=== PATIENT | female | born 1930 | race Caucasian/White ===

== ENCOUNTER → 2017-03-21 | Outpatient (CLI) | payer MEDICARE ==
[~2017-03-21] MED LIST: ACHD5005 PO; ACID1TAB5 PO; CALTRATE 600 +1 EACH PO; CLIN-62 PO; DOXY100C2 PO; ESTR0.3T PO; ESTR0.455; ESTR0.5T3 PO; FOLI1TAB7 PO; HYDR-3583 PO; INDA1.25 PO; INDA2.5T2 PO; IRB150T; KCL10CCR PO; LISI20TA2 PO; LSNP20T PO; MPR22T TP; OMEG1CAP26 PO; OMEG1CAP51 PO; POTA10CA43 PO; POTASSIUM; POTASSIUM PO; PRD5T PO; SMV10T PO; SMV20T PO; SULF1TAB38 PO
--- NOTE | 2017-03-21 19:32 | Diagnostic Imaging Report ---
INDICATION: Diabetes mellitus with chronic ulcer. TECHNIQUE: Three views of the right foot, 3:59 p.m. CORRELATION STUDY: 07/07/2012. FINDINGS: Hallux valgus primus varus alignment is present. There has been development of erosion absence of the first metatarsal head. There is also slight irregularity of the base of the proximal phalanx. Margins do appear to be fairly well corticated without definitive acute appearing erosive type change. The previously noted bipartite medial sesamoid bone is not demonstrated on followup. Apparent amputation of the distal phalanges of the second toe again demonstrated. Slight irregularity at the base of the proximal phalanx of the second toe could be reflective of a nondisplaced fracture or early erosion with slight lucency suggested. There is a transverse slightly comminuted fracture involving the distal aspect of the proximal phalanx of the little toe with fracture line extending into the interphalangeal joint. There is soft tissue swelling, particularly along the plantar aspect. Pes planus alignment. Triangular shaped density adjacent to the navicular bone is likely accessory ossicle, unchanged. IMPRESSION: 1. Soft tissue swelling of the foot. 2. Acute appearing fracture about the distal aspect of the proximal phalanx of the little toe. 3. 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 4. Question of a nondisplaced fracture versus early erosion at the base of the proximal phalanx of second digit. Dictated by: Dictated on workstation # [id number]
== END ==
LOC: RAD 15:34
PROVIDERS: ATTEND Nurse Practitioner
DX: E11.621 Type 2 diabetes mellitus with foot ulcer (principal); L97.512 Non-pressure chronic ulcer of other part of right foot with fat layer exposed
CPT/HCPCS: 73630

== ENCOUNTER → 2017-04-03 | Outpatient (CLI) | payer MEDICARE ==
[2017-04-03 16:41] LABS: CREATININE SERUM 1.29 MG/DL (0.60-1.30); POTASSIUM 3.6 MMOL/L (3.6-5.0)
[2017-04-03 16:42] LABS: CALCIUM 9.4 MG/DL (8.5-10.1)
== END ==
LOC: LAB 16:06
PROVIDERS: ATTEND Surgery
DX: E11.621 Type 2 diabetes mellitus with foot ulcer (principal); E11.42 Type 2 diabetes mellitus with diabetic polyneuropathy; L97.512 Non-pressure chronic ulcer of other part of right foot with fat layer exposed; L97.522 Non-pressure chronic ulcer of other part of left foot with fat layer exposed; L97.511 Non-pressure chronic ulcer of other part of right foot limited to breakdown of skin
CPT/HCPCS: 36415; 80048

== ENCOUNTER 2017-05-01 12:50 | Outpatient (RCR) | payer MEDICARE | END 2017-05-06 16:00 | disposition home or self-care (01) | LOC: WOUNDCARE 12:50 | PROVIDERS: ATTEND Nurse Practitioner | DX: E11.621 Type 2 diabetes mellitus with foot ulcer (principal); L97.512 Non-pressure chronic ulcer of other part of right foot with fat layer exposed | CPT/HCPCS: 11042; 11044; 87070; 87075; 87077; 87186; 87205 ==

== ENCOUNTER 2017-05-09 15:00 | Outpatient (CLI) | payer MEDICARE ==
[~2017-05-09] VITALS: Ht 162.6 cm; Wt 68.3 kg
[~2017-05-09 15:00] MED LIST changes: -CA C1TAB75 PO; -CEFEPIME HCL 2 GM (MAXIPIME) VIAL ONE; -NS (IVPB) 50 ML ONE
[2017-05-10] MEDS ORDERED: CA C1TAB75 PO (09:01)
== END 2017-05-10 08:55 ==
LOC: PREOP 15:00
PROVIDERS: ATTEND Podiatrist
DX: Z01.818 Encounter for other preprocedural examination (principal); M86.9 Osteomyelitis, unspecified; M21.6X1 Other acquired deformities of right foot

== ENCOUNTER → 2017-05-09 | Outpatient (CLI) | payer MEDICARE ==
[~2017-05-09] MED LIST changes: +CA C1TAB75 PO; +CEFEPIME HCL 2 GM (MAXIPIME) VIAL ONE; +NS (IVPB) 50 ML ONE
== END ==
LOC: WOUNDCARE 14:48
PROVIDERS: ATTEND Nurse Practitioner
DX: E11.621 Type 2 diabetes mellitus with foot ulcer (principal); E11.42 Type 2 diabetes mellitus with diabetic polyneuropathy; L97.514 Non-pressure chronic ulcer of other part of right foot with necrosis of bone; M86.471 Chronic osteomyelitis with draining sinus, right ankle and foot
CPT/HCPCS: 11042

== ENCOUNTER 2017-05-15 10:53 | Day surgery (SDC) | payer MEDICARE ==
[~2017-05-15] VITALS: Ht 162.6 cm; Wt 68.3 kg
[~2017-05-15 10:53] MED LIST changes: +CA C1TAB75 PO
--- OUTSIDE RECORDS SUMMARY | 2017-05-15 11:01 | XMS REPORT ---
Author Author JACQUES REGAN Organization [employer] Address Unknown Phone Unavailable Care Team Providers Care Tool/Die Maker Name Role Phone JACQUES REGAN CP Unavailable Allergies, Adverse Reactions, Alerts Substance Reaction Event Type N.K.D.A. Info Not Available Non Drug Allergy Problems Problem Type Condition Code Onset Dates Condition Status Assessment Cough R05 Active Medications Medication Code System Code Instructions Start Date End Date Status Dosage Azithromycin [facility] [address]-01 250 MG Orally Once a day Sep 03, 2016 Sep 08, 2016 2 tablets on the first day, then 1 tablet daily for 4 days Tessalon Perles [facility] [address]-50 100 MG Orally Three times a day for cough Sep 03, 2016 1 capsule as needed Indapamide [facility] [address]-02 2.5 MG Orally Once a day 1 tablet in the morning Potassium [facility] [address]-97 75 MG Orally Once a day 1 tablet Procedures Procedure Coding System Code Date Office Visit, New Pt., Level 3 CPT-4 45770 Sep 03, 2016 Vital Signs Date/Time: Sep 03, 2016 Blood Pressure Systolic 128 mmHg Cardiac Monitoring Heart Rate 76 bpm Weight 159.4 lbs Blood Pressure Diastolic 74 mmHg Results No Known Results Summary Purpose [employer] Submission
[2017-05-15] MEDS ORDERED: ceFAZolin 2 GM/NS 50 ML IV ONE (11:15)
[2017-05-15] MEDS ORDERED: BUPIVACAINE 0.5% 30 ML (SENSORCAINE) VIAL ONE (11:40)
[2017-05-15] MEDS ORDERED: fentaNYL INJECTION 100 MCG/2 ML AMP ONE (11:42)
[2017-05-15] MEDS ORDERED: PROPOFOL INJECTION 50 ML IV ONE (11:43)
[2017-05-15 11:53] VITALS: BP 154/65
[2017-05-15] MEDS ORDERED: GLYCOPYRROLATE 0.2 MG/ML (ROBINUL) 2 ML VIAL ONE (12:11)
[2017-05-15 13:15] VITALS: BP 142/66
[2017-05-15 13:45] VITALS: BP 134/106
[2017-05-15] MEDS ORDERED: LACTATED RINGERS 1,000 ML IV PRN (14:53)
--- NOTE | 2017-06-12 16:05 | OPERATIVE REPORT ---
DATE OF SERVICE: 05/15/2017 Please note that there was no surgery performed on this day. The patient was transferred from the preoperative holding into the OR. IV sedation was administered and the patient then had changes in her heart rhythm that were unstable. The surgery was aborted at that time. The patient was awakened and transferred back to her recovery room. She was comfortable. She will be referred to a date pitter prior to any further surgical intervention. Job ID: [id number] DocumentID: [id number] Dictated Date: 06/12/2017 15:32:30 Supply Chain Assistant Date: 06/12/2017 16:05:26 Dictated By: LI DAS DPM
== END 2017-05-15 14:04 | disposition home or self-care (01) ==
LOC: SDC 10:53
PROVIDERS: ATTEND Podiatrist
DX: E11.621 Type 2 diabetes mellitus with foot ulcer (principal); L97.529 Non-pressure chronic ulcer of other part of left foot with unspecified severity; I10 Essential (primary) hypertension; E11.40 Type 2 diabetes mellitus with diabetic neuropathy, unspecified; E78.00 Pure hypercholesterolemia, unspecified; Z79.899 Other long term (current) drug therapy; Z53.09 Procedure and treatment not carried out because of other contraindication
CPT/HCPCS: 82962; 87081; 93005

== ENCOUNTER → 2017-05-16 | Outpatient (CLI) | payer MEDICARE ==
[~2017-05-16] MED LIST changes: +CLIN300C11 PO; +POTA10TA10 PO; +POTA10TA36 PO
== END ==
LOC: WOUNDCARE 13:56
PROVIDERS: ATTEND Surgery
DX: E11.621 Type 2 diabetes mellitus with foot ulcer (principal); L97.514 Non-pressure chronic ulcer of other part of right foot with necrosis of bone; M86.471 Chronic osteomyelitis with draining sinus, right ankle and foot; E11.42 Type 2 diabetes mellitus with diabetic polyneuropathy
CPT/HCPCS: 11042

== ENCOUNTER → 2017-05-17 | Outpatient (CLI) | payer MEDICARE ==
[~2017-05-17] MED LIST changes: -CLIN300C11 PO; -POTA10TA10 PO; -POTA10TA36 PO
== END ==
LOC: SDC 13:59
PROVIDERS: ATTEND Nurse Practitioner
DX: E11.621 Type 2 diabetes mellitus with foot ulcer (principal); L97.514 Non-pressure chronic ulcer of other part of right foot with necrosis of bone; M86.471 Chronic osteomyelitis with draining sinus, right ankle and foot; E11.42 Type 2 diabetes mellitus with diabetic polyneuropathy
CPT/HCPCS: 36415; 84134

== ENCOUNTER → 2017-05-23 | Outpatient (CLI) | payer MEDICARE | LOC: WOUNDCARE 13:39 | PROVIDERS: ATTEND Nurse Practitioner | DX: E11.621 Type 2 diabetes mellitus with foot ulcer (principal); L97.514 Non-pressure chronic ulcer of other part of right foot with necrosis of bone; M86.471 Chronic osteomyelitis with draining sinus, right ankle and foot; E11.42 Type 2 diabetes mellitus with diabetic polyneuropathy | CPT/HCPCS: 11042 ==

== ENCOUNTER → 2017-05-30 | Outpatient (CLI) | payer MEDICARE ==
[~2017-05-30] VITALS: Ht 162.6 cm; Wt 68.5 kg
[~2017-05-30] MED LIST changes: +REGADENOSON 0.4 MG/5 ML SYR (LEXISCAN) IV ONE
[2017-05-30] MEDS: CATHETER FLUSH 10 ML SYR IV PRN (08:40)
[2017-05-30 09:52] VITALS: BP 131/61
[2017-05-30 09:56] VITALS: BP 152/81
--- NOTE | 2017-05-31 12:20 | STRESS TEST ---
DATE OF SERVICE: 05/30/2017 ORDERING PHYSICIAN: Dr. Lemons. PRIMARY PHYSICIAN: Dr. Guerra. CLINICAL DIAGNOSIS: Abnormal electrocardiogram, bradycardia, diabetes, hypertension, hyperlipidemia. Baseline images were carried out after injection of 9.3 mCi of Technetium-99m Tetrofosmin. This was followed by 0.4 mg regadenoson and 27.6 mCi of Technetium-99m Tetrofosmin for stress imaging. The electrocardiogram showed sinus rhythm at baseline and there was nonspecific ST and T-wave abnormality. The patient tolerated the procedure well and did not report any significant symptoms. Review of images at rest and following stress does not indicate any significant perfusion defects consistent with myocardial ischemia or infarction. Gated images show normal global left ventricular systolic function with normal regional wall motion. Left ventricular ejection fraction is calculated to be 80%. Left ventricular end diastolic volume is 31 mL. TID is absent (0.98). CONCLUSIONS: 1. No evidence of any significant myocardial ischemia or infarction on this study. 2. Normal regional wall motion. 3. Normal global left ventricular systolic function with a calculated ejection fraction of 80%. Job ID: [id number] DocumentID: [id number] Dictated Date: 05/31/2017 09:34:34 Exhaust Emissions Inspector Date: 05/31/2017 09:51:36 Dictated By: JARETT LEMONS MD, MA, FACP, FACC,
== END ==
LOC: CARD 08:18
PROVIDERS: ATTEND Internal Medicine Cardiovascular Disease
DX: E11.9 Type 2 diabetes mellitus without complications (principal); I10 Essential (primary) hypertension; E78.4 Other hyperlipidemia; R94.31 Abnormal electrocardiogram [ECG] [EKG]; R00.1 Bradycardia, unspecified
CPT/HCPCS: 78452; 93017

== ENCOUNTER → 2017-05-30 | Outpatient (CLI) | payer MEDICARE ==
[~2017-05-30] MED LIST changes: -REGADENOSON 0.4 MG/5 ML SYR (LEXISCAN) IV ONE
== END ==
LOC: WOUNDCARE 14:22
PROVIDERS: ATTEND Nurse Practitioner
DX: L97.514 Non-pressure chronic ulcer of other part of right foot with necrosis of bone (principal); E11.621 Type 2 diabetes mellitus with foot ulcer; E11.42 Type 2 diabetes mellitus with diabetic polyneuropathy; M86.471 Chronic osteomyelitis with draining sinus, right ankle and foot
CPT/HCPCS: 11042

== ENCOUNTER 2017-06-04 14:30 | Outpatient (RCR) | payer MEDICARE ==
[2017-05-03] MEDS: CEFEPIME 2 GM/NS 50 ML IVPB IV SCH ×2 (14:47)
[2017-05-03 16:33] VITALS: BP 186/71
[2017-05-04] MEDS: CEFEPIME 2 GM/NS 50 ML IVPB IV SCH ×2 (08:40)
[2017-05-04] MEDS: CATHETER FLUSH 10 ML SYR IV PRN (08:40)
[2017-05-04 08:45] VITALS: BP 138/73
[2017-05-05 14:04] VITALS: BP 155/78
[2017-05-05] MEDS: CEFEPIME 2 GM/NS 50 ML IVPB IV SCH ×2 (14:04)
[2017-05-05] MEDS: CATHETER FLUSH 10 ML SYR IV PRN (14:04)
[2017-05-06] MEDS: CEFEPIME 2 GM/NS 50 ML IVPB IV SCH ×2 (14:34)
[2017-05-06] MEDS: CATHETER FLUSH 10 ML SYR IV PRN ×2 (14:34→15:06)
[2017-05-06 14:35] VITALS: BP 175/78
[2017-05-07] MEDS: CATHETER FLUSH 10 ML SYR IV PRN ×2 (13:48→14:20)
[2017-05-07] MEDS: CEFEPIME 2 GM/NS 50 ML IVPB IV SCH ×2 (13:48)
[2017-05-07 13:51] VITALS: BP 150/66
[2017-05-08] MEDS: CATHETER FLUSH 10 ML SYR IV PRN ×2 (13:46→14:16)
[2017-05-08] MEDS: CEFEPIME 2 GM/NS 50 ML IVPB IV SCH ×2 (13:47)
[2017-05-08 14:15] VITALS: BP 147/59
[2017-05-09] MEDS: CATHETER FLUSH 10 ML SYR IV PRN ×2 (13:55→14:25)
[2017-05-09] MEDS: CEFEPIME 2 GM/NS 50 ML IVPB IV SCH ×2 (13:55)
[2017-05-09 14:02] VITALS: BP 107/86
[2017-05-10] MEDS: CATHETER FLUSH 10 ML SYR IV PRN ×2 (13:50→14:20)
[2017-05-10] MEDS: CEFEPIME 2 GM/NS 50 ML IVPB IV SCH ×2 (13:50)
[2017-05-10 14:20] VITALS: BP 141/64
[2017-05-10 14:24] LABS: ANION GAP 14 MMOL/L (5-14); BLOOD UREA NITROGEN 15 MG/DL (7-18); BUN/CREATININE RATIO 19; CALCIUM 8.8 MG/DL (8.5-10.1); CARBON DIOXIDE 25 MMOL/L (21-32); CHLORIDE 102 MMOL/L (98-107); GFR ESTIMATED > 60; GLUCOSE 135 MG/DL (70-105); SODIUM 141 MMOL/L (135-145)
[2017-05-11] MEDS: CATHETER FLUSH 10 ML SYR IV PRN ×2 (10:04→10:31)
[2017-05-11] MEDS: CEFEPIME 2 GM/NS 50 ML IVPB IV SCH ×2 (10:05)
[2017-05-11 10:45] VITALS: BP 125/63
[2017-05-12] MEDS: CATHETER FLUSH 10 ML SYR IV PRN ×2 (09:39→10:06)
[2017-05-12] MEDS: CEFEPIME 2 GM/NS 50 ML IVPB IV SCH ×2 (09:40)
[2017-05-12 10:10] VITALS: BP 120/56
[2017-05-13 13:40] VITALS: BP 148/65
[2017-05-13] MEDS: CATHETER FLUSH 10 ML SYR IV PRN ×2 (13:41→14:13)
[2017-05-13] MEDS: CEFEPIME 2 GM/NS 50 ML IVPB IV SCH ×2 (13:41)
[2017-05-14 13:40] VITALS: BP 140/61
[2017-05-14] MEDS: CEFEPIME 2 GM/NS 50 ML IVPB IV SCH ×2 (13:43)
[2017-05-14] MEDS: CATHETER FLUSH 10 ML SYR IV PRN ×2 (13:43→14:15)
[2017-05-16] MEDS: CATHETER FLUSH 10 ML SYR IV PRN (13:17)
[2017-05-16] MEDS: CEFEPIME 2 GM/NS 50 ML IVPB IV SCH ×2 (13:18)
[2017-05-16 13:55] VITALS: BP 142/66
[2017-05-17] MEDS: CEFEPIME 2 GM/NS 50 ML IVPB IV SCH ×2 (14:19)
[2017-05-17 14:52] VITALS: BP 148/72
[2017-05-18 13:35] VITALS: BP 141/79
[2017-05-18] MEDS: CEFEPIME 2 GM/NS 50 ML IVPB IV SCH ×2 (13:42)
[2017-05-18] MEDS: CATHETER FLUSH 10 ML SYR IV PRN (13:42)
[2017-05-19 13:05] VITALS: BP 150/78
[2017-05-19] MEDS: CEFEPIME 2 GM/NS 50 ML IVPB IV SCH ×2 (13:14)
[2017-05-20] MEDS: CATHETER FLUSH 10 ML SYR IV PRN ×2 (13:15→13:46)
[2017-05-20] MEDS: CEFEPIME 2 GM/NS 50 ML IVPB IV SCH ×2 (13:16)
[2017-05-20 13:50] VITALS: BP 171/68
[2017-05-21] MEDS: CATHETER FLUSH 10 ML SYR IV PRN (13:51)
[2017-05-21] MEDS: CEFEPIME 2 GM/NS 50 ML IVPB IV SCH ×2 (13:52)
[2017-05-21 14:30] VITALS: BP 141/55
[2017-05-22] MEDS: CATHETER FLUSH 10 ML SYR IV PRN ×2 (13:14→13:42)
[2017-05-22] MEDS: CEFEPIME 2 GM/NS 50 ML IVPB IV SCH ×2 (13:14)
[2017-05-22 13:50] VITALS: BP 143/58
[2017-05-23] MEDS: CEFEPIME 2 GM/NS 50 ML IVPB IV SCH ×2 (12:55)
[2017-05-23] MEDS: CATHETER FLUSH 10 ML SYR IV PRN (12:55)
[2017-05-23 12:57] VITALS: BP 143/58
[2017-05-23 14:27] VITALS: BP 143/58
[2017-05-24] MEDS: CATHETER FLUSH 10 ML SYR IV PRN (13:14)
[2017-05-24] MEDS: CEFEPIME 2 GM/NS 50 ML IVPB IV SCH ×2 (13:14)
[2017-05-24 13:17] VITALS: BP 135/76
[2017-05-24 13:53] VITALS: BP 135/76
[2017-05-25 13:24] VITALS: BP 145/67
[2017-05-25] MEDS: CEFEPIME 2 GM/NS 50 ML IVPB IV SCH ×2 (13:29)
[2017-05-25] MEDS: CATHETER FLUSH 10 ML SYR IV PRN (13:29)
[2017-05-26 13:10] VITALS: BP 137/79
[2017-05-26] MEDS: CEFEPIME 2 GM/NS 50 ML IVPB IV SCH ×2 (13:20)
[2017-05-27 14:14] VITALS: BP 179/71
[2017-05-27] MEDS: CEFEPIME 2 GM/NS 50 ML IVPB IV SCH ×2 (14:14)
[2017-05-27] MEDS: CATHETER FLUSH 10 ML SYR IV PRN ×2 (14:14→14:45)
[2017-05-28] MEDS: CEFEPIME 2 GM/NS 50 ML IVPB IV SCH ×2 (13:30)
[2017-05-28] MEDS: CATHETER FLUSH 10 ML SYR IV PRN (14:05)
[2017-05-28 14:06] VITALS: BP 139/59
[2017-05-29 14:13] VITALS: BP 149/65
[2017-05-29] MEDS: CEFEPIME 2 GM/NS 50 ML IVPB IV SCH ×2 (14:13)
[2017-05-30] MEDS: CATHETER FLUSH 10 ML SYR IV PRN ×2 (13:39→14:10)
[2017-05-30 14:10] VITALS: BP 156/61
[2017-05-31] MEDS: CEFEPIME 2 GM/NS 50 ML IVPB IV SCH ×2 (14:17)
[2017-05-31] MEDS: CATHETER FLUSH 10 ML SYR IV PRN (15:10)
[2017-05-31 15:39] VITALS: BP 136/78
[~2017-06-04] VITALS: Ht 152.4 cm; Wt 76.9 kg
[~2017-06-04 14:30] MED LIST changes: +CEFEPIME HCL 2 GM (MAXIPIME) VIAL ONE; +NS (IVPB) 50 ML ONE
[2017-06-04 15:02] VITALS: BP 136/78
[2017-06-13] MEDS ORDERED: POTA10TA10 PO (19:15)
[2017-06-13] MEDS ORDERED: POTA10TA36 PO (19:15)
[2017-06-13] MEDS ORDERED: CLIN300C11 PO (19:15)
== END 2017-07-06 | disposition home or self-care (01) ==
LOC: SDC 14:30
PROVIDERS: ATTEND Surgery
DX: L97.514 Non-pressure chronic ulcer of other part of right foot with necrosis of bone (principal); M86.471 Chronic osteomyelitis with draining sinus, right ankle and foot; E11.621 Type 2 diabetes mellitus with foot ulcer; E11.42 Type 2 diabetes mellitus with diabetic polyneuropathy; B96.5 Pseudomonas (aeruginosa) (mallei) (pseudomallei) as the cause of diseases classified elsewhere
CPT/HCPCS: 36415; 36569; 76937; 80048; 96365; 99211

== ENCOUNTER → 2017-06-05 | Outpatient (CLI) | payer MEDICARE ==
[~2017-06-05] MED LIST changes: -CEFEPIME HCL 2 GM (MAXIPIME) VIAL ONE; +CLIN300C11 PO; -NS (IVPB) 50 ML ONE; +POTA10TA10 PO; +POTA10TA36 PO
== END ==
LOC: CARD 14:42
PROVIDERS: ATTEND Internal Medicine Cardiovascular Disease
DX: R94.31 Abnormal electrocardiogram [ECG] [EKG] (principal); R00.1 Bradycardia, unspecified; E11.9 Type 2 diabetes mellitus without complications; I10 Essential (primary) hypertension; E78.4 Other hyperlipidemia
CPT/HCPCS: 93306

== ENCOUNTER → 2017-06-06 | Outpatient (CLI) | payer MEDICARE ==
[~2017-06-06] MED LIST changes: -CLIN300C11 PO; -POTA10TA10 PO; -POTA10TA36 PO
== END ==
LOC: WOUNDCARE 14:21
PROVIDERS: ATTEND Nurse Practitioner
DX: E11.621 Type 2 diabetes mellitus with foot ulcer (principal); L97.514 Non-pressure chronic ulcer of other part of right foot with necrosis of bone; E11.42 Type 2 diabetes mellitus with diabetic polyneuropathy; M86.471 Chronic osteomyelitis with draining sinus, right ankle and foot
CPT/HCPCS: 11042

== ENCOUNTER 2017-06-13 15:20 | Emergency (ER) | payer MEDICARE ==
[~2017-06-13] VITALS: Ht 162.6 cm; Wt 68.0 kg
[~2017-06-13 15:20] MED LIST changes: -CLIN300C11 PO; -POTA10TA10 PO; -POTA10TA36 PO
[2017-06-13] MEDS ORDERED: NS IV 500 ML 500 ML IV ONE (15:39)
--- NOTE | 2017-06-13 15:45 | ED Lower Extremity ---
General Chief Complaint: Lower Extremity Stated Complaint: INFECTION IN FOOT Source: patient, family (son in law taz alvares), RN/MD ([facility] Gavino Alvarado) Exam Limitations: no limitations History of Present Illness Time seen by provider: 15:38 Initial Comments Patient presents to ER by private conveyance from the wound care center where she was seen by the PA today Gavino Alvarado. Most of history given by the son-in- law who accompanies her that she started having a lot of swelling over last weekend Saturday but since the clinics were all closed for the holiday Saturday tried getting in Saturday and were unable to be seen by either the primary care physician or wound care center early so there he had a scheduled appointment today so they kept that appointment. Patient is having quite a bit of swelling and pain in her right foot where she is been treated for osteomyelitis. Her doctor, ship's surveyor, Dr. Antonette Carvalho had attempted to do a resection of the second metatarsal however the patient had a problem with her heart while on the table so they abandoned and placed PICC line and started doing antibiotics. Last dose of antibiotic was May 31 proximal 2 weeks ago. The son-in-law states the patient was running around chasing her grandson Saturday and that's what he attributes why her swelling and pain in her foot is worse. When she was seen in the wound care clinic according the PA her temperature was about 100 and his plan was given how bad the wound was he couldn't probe down to the bone to admit her and have the ship's surveyor see if they can do something about an inpatient. He also wanted to start antibiotics on her. He says he called Dr. Guerra the primary care physician and notified her. The original plan was to resect the second metatarsal in one week from today. Patient denies any nausea, vomiting, fever, chills, rash. She was recently diagnosed with diabetes and is attempting lifestyle modification and diet control only. She is not on any pills or insulin for her diabetes. After discussing the potassium being low the patient admits that she's been off her potassium for the past 10 days since she ran out of the med. Allergies and Home Medications Allergies Coded Allergies: No Known Drug Allergies (Unverified , 05/09/17) Home Medications Ca Carbonate/Vitamin D3/Vit K 1 Each Tab.chew, 1 EACH PO BID, (Reported) Folic Acid/Multivits-Min/Lut 1 Each Tab.chew, 1 TAB PO HS, (Reported) Indapamide 2.5 Mg Tablet, 2.5 MG PO BID, (Reported) Potassium Chloride 10 Meq Capsule.sa, 20 MEQ PO DAILY, (Reported) TAKES 2 (10MEQ) CAPSULES EVERY MORNING AND TAKES 1 (10MEQ) CAPSULE AT BEDTIME Constitutional: No chills, No diaphoresis, fever (per Wound care), No malaise EENTM: No ear pain, No eye pain Respiratory: No cough, No short of breath Cardiovascular: No chest pain, No edema Gastrointestinal: No abdominal pain, No constipation, No diarrhea, No nausea, No vomiting Genitourinary: No discharge, No dysuria : No Musculoskeletal: see HPI, No joint pain, No joint swelling Skin: No pruritus, No rash Psychiatric/Neurological: Denies Headache, Denies Numbness, Denies Paresthesia Past Emzztxw-Ycsfer-Kkikuh Hx Patient Social History Alcohol Use: Denies Use Recreational Drug Use: No Smoking Status: Never a Smoker 2nd Hand Smoke Exposure: No Recent Foreign Travel: No Contact w/Someone Who Travel: No Recent Hopitalizations: No Immunizations Up To Date Tetanus Booster (TDap): Unknown Date of Pneumonia Vaccine: Aug 07, 2012 Date of Influenza Vaccine: Jul 16, 2016 Seasonal Allergies Seasonal Allergies: Yes Surgeries Surgeries: Hysterectomy, Tonsillectomy Cardiovascular Cardiac Disorders: Heart Murmur, Hypertension Reproductive System Hx Reproductive Disorders: No Sexually Transmitted Disease: No HIV/AIDS: No Female Reproductive Disorders: Denies 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 HAND History: Hysterectomy Musculoskeletal Musculoskeletal Disorders: Arthritis Endocrine Endocrine Disorders: Diabetes, Non-Insulin dep HEENT Loss of Vision: Bilateral Hearing Impairment: Denies Blood Transfusions Adverse Reaction to a Blood Tr: No (N/A) Family Medical History Significant Family History: Hypertension Physical Exam Vital Signs Vital Sign - Last 12Hours 06/13/17 16:15 Temp 97.4 Pulse 71 Resp 20 B/P (MAP) 144/56 Pulse Ox 96 Capillary Refill : General Appearance: WD/WN, no apparent distress HEENT: PERRL/EOMI, pharynx normal Neck: non-tender, normal inspection Cardiovascular: normal peripheral pulses, regular rate, rhythm Respiratory: chest non-tender, lungs clear, normal breath sounds Gastrointestinal: normal bowel sounds, non tender, soft Back: normal inspection, no vertebral tenderness Hips: bilateral hip non-tender, bilateral hip normal inspection, bilateral hip normal range of motion, bilateral hip no evidence of injury Ankles: right ankle swelling (, warm mildly tender) Feet: right foot other (under a dressing was serosanguineous drainage there is a ragged pressure ulcer that is deep without significant drainage or purulence noted. Consistent with wound and osteomyelitis given on history.) Neurologic/Tendon: normal sensation, normal motor functions, normal tendon functions, responds to pain Neurologic/Psychiatric: alert, normal mood/affect, oriented x 3 Lymphatic: no adenopathy Progress/Results/Core Measures Results/Orders Lab Results Laboratory Tests Test 06/13/17 15:35 Range/Units White Blood Count 11.3 H 4.3-11.0 10^3/uL Red Blood Count 3.66 L 4.35-5.85 10^6/uL Hemoglobin 11.1 L 11.5-16.0 G/DL Hematocrit 34 L 35-52 % Mean Corpuscular Volume 94 80-99 FL Mean Corpuscular Hemoglobin 30 25-34 PG Mean Corpuscular Hemoglobin Concent 32 32-36 G/DL Red Cell Distribution Width 14.4 10.0-14.5 % Platelet Count 449 H 130-400 10^3/uL Mean Platelet Volume 11.4 H 7.4-10.4 FL Neutrophils (%) (Auto) 68 42-75 % Lymphocytes (%) (Auto) 21 12-44 % Monocytes (%) (Auto) 10 0-12 % Eosinophils (%) (Auto) 1 0-10 % Basophils (%) (Auto) 0 0-10 % Neutrophils # (Auto) 7.7 1.8-7.8 X 10^3 Lymphocytes # (Auto) 2.4 1.0-4.0 X 10^3 Monocytes # (Auto) 1.2 H 0.0-1.0 X 10^3 Eosinophils # (Auto) 0.1 0.0-0.3 10^3/uL Basophils # (Auto) 0.0 0.0-0.1 10^3/uL Prothrombin Time 13.4 12.2-14.7 SEC INR Comment 1.0 0.8-1.4 Activated Partial Thromboplast Time 28 24-35 SEC Sodium Level 140 135-145 MMOL/L Potassium Level 2.7 L 3.6-5.0 MMOL/L Chloride Level 97 L 98-107 MMOL/L Carbon Dioxide Level 32 21-32 MMOL/L Anion Gap 11 5-14 MMOL/L Blood Urea Nitrogen 18 7-18 MG/DL Creatinine 0.85 0.60-1.30 MG/DL Estimat Glomerular Filtration Rate > 60 BUN/Creatinine Ratio 21 Glucose Level 104 70-105 MG/DL Lactic Acid Level 1.27 0.50-2.00 MMOL/L Calcium Level 8.9 8.5-10.1 MG/DL Total Bilirubin 0.6 0.1-1.0 MG/DL Aspartate Amino Transf (AST/SGOT) 26 5-34 U/L Alanine Aminotransferase (ALT/SGPT) 25 0-55 U/L Alkaline Phosphatase 79 40-136 U/L Total Protein 7.1 6.4-8.2 GM/DL Albumin 3.5 3.2-4.5 GM/DL My Orders Orders - SEPIDEH WEBB Cbc With Automated Diff (06/13/17 15:39) Comprehensive Metabolic Panel (06/13/17 15:39) Lactic Acid Analyzer (06/13/17 15:39) Blood Culture (06/13/17 15:39) Sputum Culture (06/13/17 15:39) Ua Culture If Indicated (06/13/17 15:39) Protime With Inr (06/13/17 15:39) Partial Thromboplastin Time (06/13/17 15:39) Chest 1 View, Ap/Pa Only (06/13/17 15:39) O2 (06/13/17 15:39) Saline Lock/Iv-Start (06/13/17 15:39) Saline Lock/Iv-Start (06/13/17 15:39) Vital Signs Adult Sepsis Patie Q1HR (06/13/17 15:39) Remove Rings In Anticipation O (06/13/17 15:39) Saline Lock/Iv-Start (06/13/17 15:39) Ns Iv 500 Ml (Sodium Chloride 0.9%) (06/13/17 15:39) Ns W/Kcl 40 Meq/L (Ns Iv W/Kcl 40 Meq/L) (06/13/17 16:45) Ekg Tracing (06/13/17 16:41) Continuous Ekg Monitoring (06/13/17 16:41) Medications Given in ED Current Medications Medications Dose Ordered Sig/Jean Carlos Route Start Time Stop Time Status Last Admin Dose Admin Potassium Chloride/Sodium Chloride 1,000 ml @ 125 mls/hr Q8H ONCE IV 06/13/17 16:45 06/14/17 00:44 06/13/17 17:54 125 MLS/HR Sodium Chloride 500 ml @ 0 mls/hr Q0M ONCE IV 06/13/17 15:39 06/13/17 15:41 DC 06/13/17 16:09 999 MLS/HR Vital Signs/I&O Vital Sign - Last 12Hours 06/13/17 16:15 Temp 97.4 Pulse 71 Resp 20 B/P (MAP) 144/56 Pulse Ox 96 Intake and Output 06/14/17 00:00 Intake Total 500 ml Balance 500 ml Progress Note : Time: 18:47 Progress Note Echocardiogram from last week reviewed and showed grade 1 diastolic dysfunction with mild aortic regurgitation and mild mitral regurgitation and an EF of 65-70% . The nuclear stress scan from the same time shows no evidence of ischemia and 80% ejection fraction. Since her hypokalemia is asymptomatic we will get her repleted orally and sent a prescription to her pharmacy. Diagnostic Imaging Diagonstic Imaging: Xray Plain Films/CT/US/NM/MRI: chest Comments No acute cardiopulmonary processes noted. Pending radiology over read. Reviewed: Reviewed by Me Consults Consults : Consulting Physician: LI DAS DPM Consults Notes We discussed the case and the patient having hypokalemia but no evidence of real sepsis other than a low white count of 11 something thousand surgeons plan was for the patient to get a cardiac workup and cardiac clearance for setting up outpatient surgery and has this is not changed or become more urgent he would hold to this plan. He is advocating starting clindamycin 600 mg twice a day for the next week. He doesn't think that the wound looks like it going to [place] into any massive infection anytime soon and he just saw the patient about 2 weeks ago. His plan will be to see the patient in the next week or so. Departure Impression Impression: Primary Impression: Osteomyelitis of right foot Qualified Codes: M86.9 - Osteomyelitis, unspecified Disposition: HOME, SELF-CARE (ERASED) Condition: Stable Departure-Patient Inst. Decision time for Depature: 19:08 Referrals: BILL GUERRA MD (PCP/Family) Primary Care Physician Patient Instructions: Osteomyelitis (DC) Add. Discharge Instructions: [employer] the prescription for potassium and take 3 tablets in the morning and 3 tablets in the evening for 3 days then resume your previous dosage of 2 tablets in the morning and one tablet in the evening. Follow-up with her primary care physician in one to 2 weeks to follow up your potassium levels. Keep your scheduled appointment with Dr. Marquez, cardiology and your scheduled appointment with the ship's surveyor Dr. Das. If you begin to experience fevers and intractable nausea or lethargy he should return to the ER for evaluation or call your primary care physician which ever is more appropriate. All discharge instructions reviewed with patient and/or family. Voiced understanding. Scripts Clindamycin HCl (Clindamycin HCl) 300 Mg Capsule 600 MG PO BID for 7 Days, #28 CAP 0 Refills Prov: SEPIDEH WEBB 06/13/17 Potassium Chloride (Potassium Chloride) 10 Meq Tablet.er 10 MEQ PO BID, #90 TAB 0 Refills Take 2 tablets in the morning and one tablet at night. Start this regimen after 3 days of higher dose potassium. Prov: SEPIDEH WEBB 06/13/17 Potassium Chloride (Potassium Chloride) 10 Meq Tab.er.prt 30 MEQ PO BID for 3 Days, #18 TAB 0 Refills Prov: SEPIDEH WEBB 06/13/17 Copy Copies To 1: BILL GUERRA MD Copies To 2: LI DAS DPM, TITUS J Jun 13, 2017 15:44
[2017-06-13 16:03] LABS: BASOPHILS % (AUTO) 0 % (0-10); EOSINOPHILS # (AUTO) 0.1 10^3/uL (0.0-0.3); EOSINOPHILS % (AUTO) 1 % (0-10); LYMPHOCYTES # (AUTO) 2.4 X 10^3 (1.0-4.0); LYMPHOCYTES % (AUTO) 21 % (12-44); MEAN CORPUSCULAR HEMOGLOBIN 30 PG (25-34); MEAN CORPUSCULAR HGB CONC 32 G/DL (32-36); MEAN CORPUSCULAR VOLUME 94 FL (80-99); MEAN PLATELET VOLUME 11.4 FL (7.4-10.4); MONOCYTES # (AUTO) 1.2 X 10^3 (0.0-1.0); MONOCYTES % (AUTO) 10 % (0-12); NEUTROPHILS # (AUTO) 7.7 X 10^3 (1.8-7.8); NEUTROPHILS % (AUTO) 68 % (42-75); PLATELET COUNT 449 10^3/uL (130-400); RED BLOOD COUNT 3.66 10^6/uL (4.35-5.85); RED CELL DISTRIBUTION WIDTH 14.4 % (10.0-14.5); WHITE BLOOD COUNT 11.3 10^3/uL (4.3-11.0)
[2017-06-13 16:14] LABS: PROTHROMBIN TIME PATIENT 13.4 SEC (12.2-14.7)
[2017-06-13 16:20] LABS: ALANINE AMINOTRANSFERASE 25 U/L (0-55); ALBUMIN 3.5 GM/DL (3.2-4.5); ANION GAP 11 MMOL/L (5-14); ASPARTATE AMINO TRANSFERASE 26 U/L (5-34); BILIRUBIN,TOTAL 0.6 MG/DL (0.1-1.0); BLOOD UREA NITROGEN 18 MG/DL (7-18); BUN/CREATININE RATIO 21; CALCIUM 8.9 MG/DL (8.5-10.1); CARBON DIOXIDE 32 MMOL/L (21-32); CHLORIDE 97 MMOL/L (98-107); CREATININE SERUM 0.85 MG/DL (0.60-1.30); GFR ESTIMATED > 60; GLUCOSE 104 MG/DL (70-105); POTASSIUM 2.7 MMOL/L (3.6-5.0); SODIUM 140 MMOL/L (135-145); TOTAL PROTEIN 7.1 GM/DL (6.4-8.2)
[2017-06-13] MEDS ORDERED: NS W/KCL 40 MEQ/L 1,000 ML IV ONE (16:45)
--- NOTE | 2017-06-13 17:03 | Diagnostic Imaging Report ---
INDICATION: Arrhythmia and foot infection. TECHNIQUE: A PA chest was obtained at 3:53 PM. FINDINGS: Overlying monitor leads are seen. The heart is normal in size. The lungs appear clear. There is no pneumothorax or pleural fluid. IMPRESSION: No acute process in the chest. No significant change from 07/18/2013. Dictated by: Dictated on workstation # [id number]
[2017-06-13] MEDS ORDERED: POTA10TA10 PO (19:15)
[2017-06-13] MEDS ORDERED: CLIN300C11 PO (19:15)
[2017-06-13] MEDS ORDERED: POTA10TA36 PO (19:15)
[2017-06-13 19:22] VITALS: BP 130/54
== END 2017-06-13 19:22 | disposition home or self-care (01) ==
LOC: EDUNIT# 15:20 → ER 15:21
DX: E11.69 Type 2 diabetes mellitus with other specified complication (principal); M86.9 Osteomyelitis, unspecified; Z90.89 Acquired absence of other organs; Z90.710 Acquired absence of both cervix and uterus
CPT/HCPCS: 36415; 71010; 80053; 83605; 85025; 85610; 85730; 87040; 93005; 96360; 96361; 99283

== ENCOUNTER → 2017-06-13 | Outpatient (CLI) | payer MEDICARE ==
[~2017-06-13] MED LIST changes: +CLIN300C11 PO; +POTA10TA10 PO; +POTA10TA36 PO
== END ==
LOC: CARD 14:19
PROVIDERS: ATTEND Internal Medicine Cardiovascular Disease
DX: R00.1 Bradycardia, unspecified (principal); R94.31 Abnormal electrocardiogram [ECG] [EKG]; E11.9 Type 2 diabetes mellitus without complications; I10 Essential (primary) hypertension; E78.4 Other hyperlipidemia
CPT/HCPCS: 93225; 93226

== ENCOUNTER → 2017-06-13 | Outpatient (CLI) | payer MEDICARE | LOC: WOUNDCARE 14:40 | PROVIDERS: ATTEND Nurse Practitioner | DX: E11.621 Type 2 diabetes mellitus with foot ulcer (principal); E11.42 Type 2 diabetes mellitus with diabetic polyneuropathy; M86.471 Chronic osteomyelitis with draining sinus, right ankle and foot; L97.514 Non-pressure chronic ulcer of other part of right foot with necrosis of bone | CPT/HCPCS: 99213 ==

== ENCOUNTER → 2017-06-20 | Outpatient (CLI) | payer MEDICARE ==
[~2017-06-20] MED LIST changes: +CLIN300C11 PO; +POTA10TA10 PO; +POTA10TA36 PO
== END ==
LOC: WOUNDCARE 14:23
PROVIDERS: ATTEND Nurse Practitioner
DX: E11.621 Type 2 diabetes mellitus with foot ulcer (principal); E11.42 Type 2 diabetes mellitus with diabetic polyneuropathy; L97.512 Non-pressure chronic ulcer of other part of right foot with fat layer exposed; L97.514 Non-pressure chronic ulcer of other part of right foot with necrosis of bone; M86.471 Chronic osteomyelitis with draining sinus, right ankle and foot
CPT/HCPCS: 11042

== ENCOUNTER → 2017-06-26 | Outpatient (CLI) | payer MEDICARE | LOC: PREOP 05:31 | PROVIDERS: ATTEND Podiatrist | DX: M86.671 Other chronic osteomyelitis, right ankle and foot (principal) ==

== ENCOUNTER 2017-06-28 06:01 | Day surgery (SDC) | payer MEDICARE ==
[~2017-06-28] VITALS: Ht 162.6 cm; Wt 68.3 kg
[2017-06-28] MEDS ORDERED: NS (IVPB) 0 ML ONE (06:46)
[2017-06-28] MEDS ORDERED: CEFEPIME HCL 2 GM (MAXIPIME) VIAL ONE (06:46)
[2017-06-28] MEDS ORDERED: LACTATED RINGERS 1,000 ML IV PRN (06:49)
[2017-06-28 06:59] VITALS: BP 149/54
[2017-06-28] MEDS ORDERED: proPOfol 200 MG/20 ML (DIPRIVAN) VIAL IV ONE (07:01)
[2017-06-28] MEDS ORDERED: LIDOCAINE PF 2% 5 ML (XYLOCAINE) VIAL ONE (07:01)
[2017-06-28] MEDS ORDERED: ONDANSETRON 4 MG/2 ML (SDV) Z0FRAN ONE (07:01)
[2017-06-28] MEDS ORDERED: fentaNYL INJECTION 100 MCG/2 ML AMP ONE (07:02)
[2017-06-28] MEDS ORDERED: MIDAZOLAM 2 MG/2 ML (VERSED) VIAL ONE (07:02)
[2017-06-28] MEDS ORDERED: SEVOFLURANE (ULTANE) 15 ML INHAL SOLN ONE ×3 (07:05→08:28)
[2017-06-28] MEDS ORDERED: BUP/EPI 0.5% 1:200,000 (MARCAINE) 10ML VIAL IJ ONE ×2 (07:10→07:11)
[2017-06-28] MEDS ORDERED: BUPIVACAINE 0.5% 30 ML (SENSORCAINE) VIAL ONE (07:10)
[2017-06-28] MEDS ORDERED: ceFAZolin 2 GM/50 ML NS 50 ML ONE (07:25)
--- NOTE | 2017-06-28 07:58 | Progress Note-Pre Operative ---
Pre-Operative Progress Note H&P Reviewed The H&P was reviewed, patient examined and no changes noted. Time Seen by Provider: 07:57 Date H&P Reviewed: Jun 28, 2017 Time H&P Reviewed: 07:57 Pre-Operative Diagnosis: Osteomyelitis Right 2nd toe, Equinus Deformity LI FERNANDO DPM Jun 28, 2017 07:58
[2017-06-28] MEDS ORDERED: morphine INJ 10 MG/ML 1ML (SYR OR VIAL) IVP PRN (08:45)
[2017-06-28] MEDS ORDERED: ONDANSETRON 4 MG/2 ML (SDV) Z0FRAN IVP PRN (08:45)
[2017-06-28 09:10] VITALS: BP 121/58
[2017-06-28 09:40] VITALS: BP 126/58
[2017-06-28 10:00] VITALS: BP 126/58
--- NOTE | 2017-07-25 00:21 | OPERATIVE REPORT ---
DATE OF SERVICE: 06/28/2017 SURGEON: Carlos A Das DPM. DRYING AND WINDING SUPERVISOR: None. PREOPERATIVE DIAGNOSES: 1. Osteomyelitis right second metatarsal. 2. 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 POSTOPERATIVE DIAGNOSES: 1. Osteomyelitis right second metatarsal. 2. 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 PROCEDURES PERFORMED: 1. Excision of right second metatarsal head. 2. Gastroc recession of the right lower extremity. ANESTHESIA: General anesthesia. HEMOSTASIS: Pneumatic thigh tourniquet 300 mmHg. ESTIMATED BLOOD LOSS: Minimal. MATERIALS USED: 3-0 nylon. INTRAOPERATIVE INJECTABLES: 20 mL 0.5% Marcaine plain. COMPLICATIONS: None. INDICATION FOR THE PROCEDURE: The patient is an 86-year-old female with a chronic wound and osteomyelitis to her right second metatarsal. She also has equinus deformity to the right lower extremity. She has exhausted conservative measures at this time and is requiring surgical intervention. She signed consent prior to being taken back to the OR. DESCRIPTION OF PROCEDURE: Under mild sedation, the patient was brought into the OR and placed on the operating room table in supine position. Following administration of general anesthesia, pneumatic thigh tourniquet was placed to right lower extremity. The right lower extremity was scrubbed, prepped and draped in an aseptic manner. Appropriate time-out was performed. Right lower extremity was identified as surgical site. Next, an approximately 4 cm incision was made over the dorsal aspect of the second metatarsal. The incision was deepened down to the subcutaneous tissues with care being taken to avoid all vital neurovascular structures. All bleeders were cauterized and ligated as necessary. The incision was deepened down to the level of the bone and the metatarsal was resected just proximal to the surgical neck using a sagittal saw. The bone was then resected and passed from the surgical field. The wound was then flushed with copious amounts of sterile saline. There was no purulence or deep abscess that was noted. The dorsal incision was then closed using 3-0 nylon. There was also a plantar wound that was debrided and excised in its entirety and passed from the surgical field. The skin was reapproximated and closed using 3-0 nylon. Next, the Silverskold test was performed to the ankle joint and it was noted there was an equinus deformity with the knee extended or with the knee flexed. The ankle was able to be dorsiflexed approximately 5 degrees dorsiflexion, thus the need of a gastroc recession was deemed necessary to achieve dorsiflexion with the knee extended and prevent further plantar wounds from developing to the forefoot. An approximately 2 cm incision was made to the medial aspect of the gastroc aponeurosis. The incision was deepened down to the subcutaneous tissues with care being taken to avoid all neurovascular structures. All bleeders were cauterized and ligated as necessary. A 15 blade was then used to incise the gastroc aponeurosis from medial to lateral with the dorsiflexor forced placed across the ankle and the knee extended. Once the aponeurosis was released, there was dorsiflexion of 10 degrees was achieved at the ankle joint. The wound was then flushed with copious amounts of sterile saline and the skin was reapproximated and closed with 3-0 nylon. 20 mL 0.5% Marcaine plain were injected in the foot, in the area of the calf and the right lower extremity was then dressed with a dry sterile dressing consisting of 4x4s, Webril and Polo wrap. The patient tolerated the procedure and anesthesia well. She was transferred from OR to recovery with vital signs stable and neurovascular status intact to the right lower extremity. Job ID: [id number] DocumentID: [id number] Dictated Date: 07/24/2017 14:37:36 Sales Expert [employer] Date: 07/25/2017 00:21:27 Dictated By: CARLOS A DAS DPM
== END 2017-06-28 10:00 | disposition home or self-care (01) ==
LOC: SDC 06:01
PROVIDERS: ATTEND Podiatrist
DX: M86.9 Osteomyelitis, unspecified (principal); M21.961 Unspecified acquired deformity of right lower leg; E11.621 Type 2 diabetes mellitus with foot ulcer; L97.519 Non-pressure chronic ulcer of other part of right foot with unspecified severity; E11.43 Type 2 diabetes mellitus with diabetic autonomic (poly)neuropathy; I10 Essential (primary) hypertension; E78.00 Pure hypercholesterolemia, unspecified; Z79.899 Other long term (current) drug therapy
CPT/HCPCS: 82962; 87081

== ENCOUNTER → 2017-07-11 | Outpatient (CLI) | payer MEDICARE | LOC: WOUNDCARE 14:23 | PROVIDERS: ATTEND Surgery | DX: E11.621 Type 2 diabetes mellitus with foot ulcer (principal); L97.522 Non-pressure chronic ulcer of other part of left foot with fat layer exposed; L97.512 Non-pressure chronic ulcer of other part of right foot with fat layer exposed; M86.471 Chronic osteomyelitis with draining sinus, right ankle and foot; E11.42 Type 2 diabetes mellitus with diabetic polyneuropathy; I70.245 Atherosclerosis of native arteries of left leg with ulceration of other part of foot | CPT/HCPCS: 11042 ==

== ENCOUNTER → 2017-07-18 | Outpatient (CLI) | payer MEDICARE | LOC: WOUNDCARE 14:33 | PROVIDERS: ATTEND Nurse Practitioner | DX: E11.621 Type 2 diabetes mellitus with foot ulcer (principal); L97.522 Non-pressure chronic ulcer of other part of left foot with fat layer exposed; L97.512 Non-pressure chronic ulcer of other part of right foot with fat layer exposed; M86.471 Chronic osteomyelitis with draining sinus, right ankle and foot; E11.42 Type 2 diabetes mellitus with diabetic polyneuropathy; I70.245 Atherosclerosis of native arteries of left leg with ulceration of other part of foot | CPT/HCPCS: 15275 ==

== ENCOUNTER → 2017-07-25 | Outpatient (CLI) | payer MEDICARE | LOC: WOUNDCARE 14:52 | PROVIDERS: ATTEND Nurse Practitioner | DX: E11.621 Type 2 diabetes mellitus with foot ulcer (principal); L97.522 Non-pressure chronic ulcer of other part of left foot with fat layer exposed; L97.512 Non-pressure chronic ulcer of other part of right foot with fat layer exposed; M86.471 Chronic osteomyelitis with draining sinus, right ankle and foot; E11.42 Type 2 diabetes mellitus with diabetic polyneuropathy; I70.245 Atherosclerosis of native arteries of left leg with ulceration of other part of foot | CPT/HCPCS: 15275 ==

== ENCOUNTER → 2017-08-01 | Outpatient (CLI) | payer MEDICARE | LOC: WOUNDCARE 12:41 | PROVIDERS: ATTEND Nurse Practitioner | DX: E11.621 Type 2 diabetes mellitus with foot ulcer (principal); L97.522 Non-pressure chronic ulcer of other part of left foot with fat layer exposed; L97.512 Non-pressure chronic ulcer of other part of right foot with fat layer exposed; I70.245 Atherosclerosis of native arteries of left leg with ulceration of other part of foot; M86.471 Chronic osteomyelitis with draining sinus, right ankle and foot; E11.42 Type 2 diabetes mellitus with diabetic polyneuropathy | CPT/HCPCS: 11042; 87070; 87075; 87077; 87106; 87186; 87205 ==

== ENCOUNTER → 2017-08-08 | Outpatient (CLI) | payer MEDICARE | LOC: WOUNDCARE 14:26 | PROVIDERS: ATTEND Nurse Practitioner | DX: E11.621 Type 2 diabetes mellitus with foot ulcer (principal); E11.42 Type 2 diabetes mellitus with diabetic polyneuropathy; L97.522 Non-pressure chronic ulcer of other part of left foot with fat layer exposed; L97.512 Non-pressure chronic ulcer of other part of right foot with fat layer exposed; M86.471 Chronic osteomyelitis with draining sinus, right ankle and foot | CPT/HCPCS: 99213 ==

== ENCOUNTER → 2017-08-15 | Outpatient (CLI) | payer MEDICARE | LOC: WOUNDCARE 14:20 | PROVIDERS: ATTEND Nurse Practitioner | DX: E11.621 Type 2 diabetes mellitus with foot ulcer (principal); L97.522 Non-pressure chronic ulcer of other part of left foot with fat layer exposed; E11.42 Type 2 diabetes mellitus with diabetic polyneuropathy; I70.245 Atherosclerosis of native arteries of left leg with ulceration of other part of foot | CPT/HCPCS: 11042 ==

== ENCOUNTER → 2017-08-22 | Outpatient (CLI) | payer MEDICARE | LOC: WOUNDCARE 14:28 | PROVIDERS: ATTEND Nurse Practitioner | DX: E11.621 Type 2 diabetes mellitus with foot ulcer (principal); L97.522 Non-pressure chronic ulcer of other part of left foot with fat layer exposed; E11.42 Type 2 diabetes mellitus with diabetic polyneuropathy; I70.245 Atherosclerosis of native arteries of left leg with ulceration of other part of foot | CPT/HCPCS: 11042; 87070; 87075; 87205 ==

== ENCOUNTER → 2017-08-23 | Outpatient (CLI) | payer MEDICARE ==
--- NOTE | 2017-08-23 15:47 | Diagnostic Imaging Report ---
INDICATION: Ulcer of the distal toe. COMPARISON: 05/06/2012. FINDINGS: Three radiographic views of the left great toe were obtained and show changes of previous partial amputation at the interphalangeal joint space. There is some amorphous increased opacity involving the plantar surface overlying the distal margins of the proximal phalanx. Osseous structures, however, are intact. No distinct osteolytic process is identified. There is no evidence of acute fracture or dislocation. Previous amputation changes of the second toe are also noted. No other unexpected radiopaque foreign bodies are seen. IMPRESSION: 1. Amorphous opacity of the soft tissues of the great toe. Findings could be on the basis of overlying dressing. Clinical correlation recommended, as foreign body is not excluded. 2. Postsurgical changes of previous partial amputation of the great toe. No distinct lytic or blastic osseous lesion is identified. Please note, however, that osteomyelitis cannot be excluded based on radiographic alone. If there is concern for osteomyelitis, further evaluation with MRI is recommended. Dictated by: Dictated on workstation # [id number]
== END ==
LOC: RAD 13:42
PROVIDERS: ATTEND Nurse Practitioner
DX: L97.522 Non-pressure chronic ulcer of other part of left foot with fat layer exposed (principal); Z89.412 Acquired absence of left great toe; E11.621 Type 2 diabetes mellitus with foot ulcer; E11.42 Type 2 diabetes mellitus with diabetic polyneuropathy
CPT/HCPCS: 73660

== ENCOUNTER → 2017-08-27 | Outpatient (CLI) | payer MEDICARE | LOC: WOUNDCARE 14:28 | PROVIDERS: ATTEND Surgery | DX: L97.522 Non-pressure chronic ulcer of other part of left foot with fat layer exposed (principal); Z89.412 Acquired absence of left great toe; E11.621 Type 2 diabetes mellitus with foot ulcer; E11.42 Type 2 diabetes mellitus with diabetic polyneuropathy | CPT/HCPCS: 11042 ==

== ENCOUNTER → 2017-09-05 | Outpatient (CLI) | payer MEDICARE | LOC: WOUNDCARE 14:11 | PROVIDERS: ATTEND Nurse Practitioner | DX: L97.522 Non-pressure chronic ulcer of other part of left foot with fat layer exposed (principal); Z89.412 Acquired absence of left great toe; E11.621 Type 2 diabetes mellitus with foot ulcer; E11.42 Type 2 diabetes mellitus with diabetic polyneuropathy | CPT/HCPCS: 15271 ==

== ENCOUNTER → 2017-09-12 | Outpatient (CLI) | payer MEDICARE | LOC: WOUNDCARE 12:56 | PROVIDERS: ATTEND Nurse Practitioner | DX: E11.621 Type 2 diabetes mellitus with foot ulcer (principal); I70.245 Atherosclerosis of native arteries of left leg with ulceration of other part of foot; L97.522 Non-pressure chronic ulcer of other part of left foot with fat layer exposed; E11.42 Type 2 diabetes mellitus with diabetic polyneuropathy | CPT/HCPCS: 15275 ==

== ENCOUNTER → 2017-09-19 | Outpatient (CLI) | payer MEDICARE | LOC: WOUNDCARE 14:31 | PROVIDERS: ATTEND Nurse Practitioner | DX: L97.522 Non-pressure chronic ulcer of other part of left foot with fat layer exposed (principal); E11.621 Type 2 diabetes mellitus with foot ulcer; E11.42 Type 2 diabetes mellitus with diabetic polyneuropathy; I70.245 Atherosclerosis of native arteries of left leg with ulceration of other part of foot | CPT/HCPCS: 11042 ==

== ENCOUNTER → 2017-09-26 | Outpatient (CLI) | payer MEDICARE | LOC: WOUNDCARE 14:13 | PROVIDERS: ATTEND Nurse Practitioner | DX: E11.621 Type 2 diabetes mellitus with foot ulcer (principal); E11.42 Type 2 diabetes mellitus with diabetic polyneuropathy; I70.245 Atherosclerosis of native arteries of left leg with ulceration of other part of foot; L97.522 Non-pressure chronic ulcer of other part of left foot with fat layer exposed | CPT/HCPCS: 15275 ==

== ENCOUNTER → 2017-10-03 | Outpatient (CLI) | payer MEDICARE | LOC: WOUNDCARE 14:42 | PROVIDERS: ATTEND Surgery | DX: E11.621 Type 2 diabetes mellitus with foot ulcer (principal); E11.42 Type 2 diabetes mellitus with diabetic polyneuropathy; I70.245 Atherosclerosis of native arteries of left leg with ulceration of other part of foot; L97.522 Non-pressure chronic ulcer of other part of left foot with fat layer exposed | CPT/HCPCS: 15275 ==

== ENCOUNTER → 2017-10-10 | Outpatient (CLI) | payer MEDICARE | LOC: WOUNDCARE 14:11 | PROVIDERS: ATTEND Nurse Practitioner | DX: E11.621 Type 2 diabetes mellitus with foot ulcer (principal); L97.522 Non-pressure chronic ulcer of other part of left foot with fat layer exposed; E11.42 Type 2 diabetes mellitus with diabetic polyneuropathy; I70.245 Atherosclerosis of native arteries of left leg with ulceration of other part of foot | CPT/HCPCS: 15271 ==

== ENCOUNTER → 2017-10-17 | Outpatient (CLI) | payer MEDICARE | LOC: WOUNDCARE 13:09 | PROVIDERS: ATTEND Nurse Practitioner | DX: L97.522 Non-pressure chronic ulcer of other part of left foot with fat layer exposed (principal); E11.621 Type 2 diabetes mellitus with foot ulcer; E11.42 Type 2 diabetes mellitus with diabetic polyneuropathy; I70.245 Atherosclerosis of native arteries of left leg with ulceration of other part of foot | CPT/HCPCS: 11042; 87070; 87075; 87205 ==

== ENCOUNTER → 2017-10-24 | Outpatient (CLI) | payer MEDICARE | LOC: WOUNDCARE 14:42 | PROVIDERS: ATTEND Nurse Practitioner | DX: E11.621 Type 2 diabetes mellitus with foot ulcer (principal); L97.522 Non-pressure chronic ulcer of other part of left foot with fat layer exposed; E11.42 Type 2 diabetes mellitus with diabetic polyneuropathy; I70.245 Atherosclerosis of native arteries of left leg with ulceration of other part of foot | CPT/HCPCS: 11042 ==

== ENCOUNTER → 2017-10-31 | Outpatient (CLI) | payer MEDICARE | LOC: WOUNDCARE 14:24 | PROVIDERS: ATTEND Nurse Practitioner | DX: L97.522 Non-pressure chronic ulcer of other part of left foot with fat layer exposed (principal); E11.621 Type 2 diabetes mellitus with foot ulcer; E11.42 Type 2 diabetes mellitus with diabetic polyneuropathy; I70.245 Atherosclerosis of native arteries of left leg with ulceration of other part of foot | CPT/HCPCS: 11042 ==

== ENCOUNTER → 2017-11-14 | Outpatient (CLI) | payer MEDICARE | LOC: WOUNDCARE 14:13 | PROVIDERS: ATTEND Nurse Practitioner | DX: L97.522 Non-pressure chronic ulcer of other part of left foot with fat layer exposed (principal); E11.621 Type 2 diabetes mellitus with foot ulcer; E11.42 Type 2 diabetes mellitus with diabetic polyneuropathy; I70.245 Atherosclerosis of native arteries of left leg with ulceration of other part of foot | CPT/HCPCS: 11042 ==

== ENCOUNTER → 2017-11-21 | Outpatient (CLI) | payer MEDICARE | LOC: WOUNDCARE 14:05 | PROVIDERS: ATTEND Nurse Practitioner | DX: L97.522 Non-pressure chronic ulcer of other part of left foot with fat layer exposed (principal); E11.621 Type 2 diabetes mellitus with foot ulcer; E11.42 Type 2 diabetes mellitus with diabetic polyneuropathy; I70.245 Atherosclerosis of native arteries of left leg with ulceration of other part of foot | CPT/HCPCS: 11042 ==

== ENCOUNTER → 2017-11-26 | Outpatient (CLI) | payer MEDICARE | LOC: WOUNDCARE 11:00 | PROVIDERS: ATTEND Nurse Practitioner | DX: E11.621 Type 2 diabetes mellitus with foot ulcer (principal); L97.522 Non-pressure chronic ulcer of other part of left foot with fat layer exposed; E11.42 Type 2 diabetes mellitus with diabetic polyneuropathy; I70.245 Atherosclerosis of native arteries of left leg with ulceration of other part of foot | CPT/HCPCS: 11042 ==

== ENCOUNTER → 2017-11-28 | Outpatient (CLI) | payer MEDICARE ==
[2017-11-28 14:23] LABS: BASOPHILS % (AUTO) 0 % (0-10); EOSINOPHILS # (AUTO) 0.2 10^3/uL (0.0-0.3); EOSINOPHILS % (AUTO) 2 % (0-10); HEMATOCRIT 42 % (35-52); HEMOGLOBIN 14.1 G/DL (11.5-16.0); LYMPHOCYTES # (AUTO) 3.7 X 10^3 (1.0-4.0); LYMPHOCYTES % (AUTO) 40 % (12-44); MEAN CORPUSCULAR HEMOGLOBIN 30 PG (25-34); MEAN CORPUSCULAR HGB CONC 34 G/DL (32-36); MEAN CORPUSCULAR VOLUME 90 FL (80-99); MEAN PLATELET VOLUME 10.7 FL (7.4-10.4); MONOCYTES # (AUTO) 0.8 X 10^3 (0.0-1.0); MONOCYTES % (AUTO) 9 % (0-12); NEUTROPHILS # (AUTO) 4.5 X 10^3 (1.8-7.8); NEUTROPHILS % (AUTO) 49 % (42-75); PLATELET COUNT 321 10^3/uL (130-400); RED BLOOD COUNT 4.64 10^6/uL (4.35-5.85); RED CELL DISTRIBUTION WIDTH 14.1 % (10.0-14.5); WHITE BLOOD COUNT 9.2 10^3/uL (4.3-11.0)
[2017-11-28 14:43] LABS: ALANINE AMINOTRANSFERASE 15 U/L (0-55); ALBUMIN 3.5 GM/DL (3.2-4.5); ALKALINE PHOSPHATASE 84 U/L (40-136); BILIRUBIN,TOTAL 0.5 MG/DL (0.1-1.0); BUN/CREATININE RATIO 21; CALCIUM 8.7 MG/DL (8.5-10.1); CARBON DIOXIDE 27 MMOL/L (21-32); CHLORIDE 102 MMOL/L (98-107); CREATININE SERUM 0.81 MG/DL (0.60-1.30); GFR ESTIMATED > 60; GLUCOSE 129 MG/DL (70-105); POTASSIUM 3.1 MMOL/L (3.6-5.0); SODIUM 139 MMOL/L (135-145); TOTAL PROTEIN 6.9 GM/DL (6.4-8.2)
== END ==
LOC: LAB 14:05
PROVIDERS: ATTEND Nurse Practitioner
DX: E11.621 Type 2 diabetes mellitus with foot ulcer (principal); L97.522 Non-pressure chronic ulcer of other part of left foot with fat layer exposed
CPT/HCPCS: 36415; 80053; 83036; 85025

== ENCOUNTER → 2017-11-28 | Outpatient (CLI) | payer MEDICARE | LOC: WOUNDCARE 14:19 | PROVIDERS: ATTEND Nurse Practitioner | DX: E11.621 Type 2 diabetes mellitus with foot ulcer (principal); L97.522 Non-pressure chronic ulcer of other part of left foot with fat layer exposed; E11.42 Type 2 diabetes mellitus with diabetic polyneuropathy; I70.245 Atherosclerosis of native arteries of left leg with ulceration of other part of foot | CPT/HCPCS: 29445 ==

== ENCOUNTER → 2017-12-05 | Outpatient (CLI) | payer MEDICARE | LOC: WOUNDCARE 14:11 | PROVIDERS: ATTEND Nurse Practitioner | DX: E11.621 Type 2 diabetes mellitus with foot ulcer (principal); L97.522 Non-pressure chronic ulcer of other part of left foot with fat layer exposed; L97.521 Non-pressure chronic ulcer of other part of left foot limited to breakdown of skin; I70.245 Atherosclerosis of native arteries of left leg with ulceration of other part of foot | CPT/HCPCS: 11042; 97597 ==

== ENCOUNTER → 2017-12-12 | Outpatient (CLI) | payer MEDICARE | LOC: WOUNDCARE 14:27 | PROVIDERS: ATTEND Nurse Practitioner | DX: E11.621 Type 2 diabetes mellitus with foot ulcer (principal); L97.521 Non-pressure chronic ulcer of other part of left foot limited to breakdown of skin; L97.522 Non-pressure chronic ulcer of other part of left foot with fat layer exposed; I70.245 Atherosclerosis of native arteries of left leg with ulceration of other part of foot | CPT/HCPCS: 97597 ==

== ENCOUNTER → 2017-12-19 | Outpatient (CLI) | payer MEDICARE | LOC: WOUNDCARE 14:31 | PROVIDERS: ATTEND Nurse Practitioner | DX: E11.621 Type 2 diabetes mellitus with foot ulcer (principal); I70.245 Atherosclerosis of native arteries of left leg with ulceration of other part of foot; L97.521 Non-pressure chronic ulcer of other part of left foot limited to breakdown of skin; L97.522 Non-pressure chronic ulcer of other part of left foot with fat layer exposed; E11.42 Type 2 diabetes mellitus with diabetic polyneuropathy | CPT/HCPCS: 97597 ==

== ENCOUNTER → 2017-12-26 | Outpatient (CLI) | payer MEDICARE | LOC: WOUNDCARE 14:32 | PROVIDERS: ATTEND Nurse Practitioner | DX: E11.621 Type 2 diabetes mellitus with foot ulcer (principal); L97.521 Non-pressure chronic ulcer of other part of left foot limited to breakdown of skin; E11.42 Type 2 diabetes mellitus with diabetic polyneuropathy; I70.245 Atherosclerosis of native arteries of left leg with ulceration of other part of foot | CPT/HCPCS: 97597 ==

== ENCOUNTER → 2018-01-02 | Outpatient (CLI) | payer MEDICARE | LOC: WOUNDCARE 14:11 | PROVIDERS: ATTEND Nurse Practitioner | DX: E11.621 Type 2 diabetes mellitus with foot ulcer (principal); I70.245 Atherosclerosis of native arteries of left leg with ulceration of other part of foot; L97.521 Non-pressure chronic ulcer of other part of left foot limited to breakdown of skin; E11.42 Type 2 diabetes mellitus with diabetic polyneuropathy | CPT/HCPCS: 99212 ==

== ENCOUNTER 2018-05-07 18:25 | Emergency (ER) | payer MEDICARE ==
[~2018-05-07] VITALS: Ht 162.6 cm; Wt 70.3 kg
[2018-05-07] MEDS ORDERED: LIDOCAINE 1% INJ 20 ML 20 ML VIAL INJ ONE (19:30)
[2018-05-07] MEDS ORDERED: TETANUS,DIPTH,PERTUSS P/F (BOOSTRIX) 0.5 ML VIAL IM STA (19:46)
--- NOTE | 2018-05-07 19:51 | ED Upper Extremity ---
General Chief Complaint: Laceration Stated Complaint: LACERATION L HAND Nursing Triage Note: PT AMB TO ROOM #9 W/O DIFFICULTY. A&OX4. SON IN-LAW AT SIDE. PT REPORTS SHE WAS GETTING OUT OF THE VEHICLE, TRIPPED OVER HER FEET, AND FELL INTO BUMPER OF CAR RESULTING IN LACERATION TO LT PALM. PT DENIES LOC. DENIES DIZZINESS. PT REPORTS SHE HAD RECENT UTI AND FINISHED ANTIBIOTIC TX THIS MORNING. Nursing Sepsis Screen: No Definite Risk History of Present Illness Date Seen by Provider: May 07, 2018 Time Seen by Provider: 19:00 Initial Comments 87-year-old female reports tripping and hitting the lateral aspect of her left hand on her bumper. She immediately had a noted laceration and presented here. She denies any loss of consciousness or head injury. She does report bumping her left cheek on the side of the car, but she denies complaints there. She is unsure of her last tetanus shot but believes it's over 5 years ago. Pain/Injury Location: left hand Method of Injury: fell Allergies and Home Medications Allergies Coded Allergies: No Known Drug Allergies (Unverified , 05/09/17) Home Medications Ca Carbonate/Vitamin D3/Vit K 1 Each Tab.chew, 1 EACH PO BID, (Reported) Clindamycin HCl 300 Mg Capsule, 600 MG PO BID Prescribed by: SEPIDEH WEBB on 06/13/171914 Folic Acid/Multivits-Min/Lut 1 Each Tab.chew, 1 TAB PO HS, (Reported) Indapamide 2.5 Mg Tablet, 2.5 MG PO BID, (Reported) Potassium Chloride 10 Meq Capsule.sa, 20 MEQ PO DAILY, (Reported) TAKES 2 (10MEQ) CAPSULES EVERY MORNING AND TAKES 1 (10MEQ) CAPSULE AT BEDTIME Potassium Chloride 10 Meq Tab.er.prt, 30 MEQ PO BID Prescribed by: SEPIDEH WEBB on 06/13/171914 Potassium Chloride 10 Meq Tablet.er, 10 MEQ PO BID Take 2 tablets in the morning and one tablet at night. Start this regimen after 3 days of higher dose potassium. Prescribed by: SEPIDEH WEBB on 06/13/171914 Patient Home Medication List Home Medication List Reviewed: Yes Constitutional: no symptoms reported, see HPI Skin: see HPI, other (laceration left hand) All Other Systems Reviewed Negative Unless Noted: Yes Past Pjuzlyj-Bnjbrw-Aynyik Hx Past Med/Social Hx: Reviewed Nursing Past Med/Soc Hx Patient Social History Alcohol Use: Denies Use Recreational Drug Use: No Smoking Status: Never a Smoker 2nd Hand Smoke Exposure: No Recent Foreign Travel: No Contact w/Someone Who Travel: No Recent Infectious Disease Expo: No Recent Hopitalizations: No Physical Abuse: No Sexual Abuse: No Immunizations Up To Date Tetanus Booster (TDap): Unknown Date of Pneumonia Vaccine: Aug 07, 2012 Date of Influenza Vaccine: Jul 16, 2016 Seasonal Allergies Seasonal Allergies: Yes Past Medical History Surgeries: Yes (FOOT) Hysterectomy, Tonsillectomy Respiratory: No Cardiac: Yes Heart Murmur, Hypertension Neurological: No Reproductive Disorders: No Female Reproductive Disorders: Denies 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 Sexually Transmitted Disease: No HIV/AIDS: No Gastrointestinal: No Musculoskeletal: Yes Arthritis Endocrine: Yes (DIET CONTROLLED) Diabetes, Non-Insulin dep Loss of Vision: Bilateral Hearing Impairment: Denies Cancer: No Psychosocial: No Nursing Suicide Risk Score: 0 Integumentary: No Blood Disorders: No Adverse Reaction/Blood Tranf: No (N/A) Family Medical History Hypertension Physical Exam Vital Signs Vital Signs - First Documented 05/07/18 18:30 Temp 99.7 Pulse 79 Resp 18 B/P (MAP) 180/70 (106) Pulse Ox 97 O2 Delivery Room Air Capillary Refill : Less Than 3 Seconds Height, Weight, BMI Height: 5'4.00" Weight: 155lbs. 9.6oz. [id number]; 25.9 BMI Method:Stated General Appearance: WD/WN, no apparent distress Neck: non-tender, full range of motion, supple, normal inspection Cardiovascular: normal peripheral pulses, regular rate, rhythm Respiratory: chest non-tender, lungs clear, normal breath sounds Hand: Left, abrasions Neurologic/Tendon: normal sensation, normal motor functions, normal tendon functions Neurologic/Psychiatric: no motor/sensory deficits, alert, normal mood/affect, oriented x 3 Skin: normal color, warm/dry, other (2.5 cm laceration noted to ulnar side of left hand at the fifth MCP joint. Full range of motion to all fingers, resisted flexion and extension V/V 5th finger left hand. ) Procedures/Interventions Wound Location: Upper Extremities Wound Length (cm): 2.5 Wound's Depth, Shape: superficial Wound Explored: clean Irrigated w/ Saline (ccs): 500 Betadine Prep?: Yes Anesthesia: 1% Lidocaine Volume Anesthetic (ccs): 3 Suture: Ethlion Suture Size: 4-0 Number of Sutures: 4 Number Deep Layer Sutures: 0 Sterile Dressing Applied?: Yes Progress Patient tolerated procedure well, bulky sterile dressing applied. Progress/Results/Core Measures Results/Orders My Orders Orders - LEBRON MORTON Lidocaine 1% Inj 20 Ml (Xylocaine 1% Inj (05/07/18 19:30) Dipht,Pertuss(Acell),Tet Adult (Boostrix (05/07/18 19:46) Vital Signs/I&O 05/07/18 18:30 Temp 99.7 Pulse 79 Resp 18 B/P (MAP) 180/70 (106) Pulse Ox 97 O2 Delivery Room Air Blood Pressure Mean: 106 Departure Impression Primary Impression: Laceration of hand, left Qualified Codes: S61.412A - Laceration without foreign body of left hand, initial encounter Additional Impression: Fall Qualified Codes: W19.XXXA - Unspecified fall, initial encounter Disposition: 01 HOME, SELF-CARE Condition: Improved Departure-Patient Inst. Decision time for Depature: 19:45 Referrals: BILL CARRANZA MD (PCP/Family) Primary Care Physician Patient Instructions: Laceration Repair With Stitches (DC) Add. Discharge Instructions: Keep dressing in place for the next 24 hours, keep wound clean and dry dressing that time. Tomorrow you may take a shower with the dressing off, after showering clean the wound with peroxide and apply a Band-Aid. Do not immerse the left hand in a sink of water, bathtub, hot tub, swimming pool , or cruz. Return to the emergency department or your primary care provider in 7-10 days for suture removal. You may take Tylenol 650 mg alternating with ibuprofen 600 mg every 4 hours as needed for pain or fever. Return to emergency department immediately for increased redness at the wound site, discolored or foul smelling drainage, increased pain, fever greater than 101, or new problems. All discharge instructions reviewed with patient and/or family. Voiced understanding. Copy Copies To 1: BILL CARRANZA MD, AMY ARNP May 07, 2018 19:50
[2018-05-07 20:22] VITALS: BP 155/65
--- OUTSIDE RECORDS SUMMARY | 2018-05-08 01:14 | XMS REPORT | CCD ---
Author Author [facility] Organization [facility] Address [address] [place] [address] Phone Care Team Providers Care Psychologist Counseling Name Role Phone PP Unavailable CCM Unavailable Summary Purpose Interface Exchange Insurance Providers Payer name Policy type / Coverage type Covered republican ID Effective Begin Date Effective End Date WPS Medicare Part B Medicare Part B [id number] Unknown Unknown [facility] Medicare Part B [id number] Unknown Unknown Family history Mother Diagnosis Age At Onset Parkinson's disease Unknown Mother Diagnosis Age At Onset Parkinson's disease Unknown Father Diagnosis Age At Onset Diabetes mellitus Type 2 Unknown Father Diagnosis Age At Onset Denies: Diabetes mellitus Type 2 Unknown Social History Social History Element Codes Description Effective Dates Marital status Unknown 07/06/2011 Marital status Unknown had been for 62 years 07/06/2011 Employment Unknown Retired previously worked for [employer] 07/06/2011 Employment Unknown Retired from [employer], idania almeida at [employer] 07/06/[address]: 513640114 Never smoker 07/06/[address]: 012485624 Nonsmoker 07/06/2011 Frequency of drinks SNOMED CT: 050772494 1-4 drinks per week wine or bloody re 07/06/2011 Has the patient ever used illegal drugs? Unknown Has never used illegal drugs 07/06/2011 Living arrangements Unknown House 07/05/2011 Allergies, Adverse Reactions, Alerts Allergies, Adverse Reactions, Alerts data not found Past Medical History Illness Codes Condition Status Onset Date Resolved Date Essential (primary) hypertension ICD-9: 401.9 ICD-10: I10 Active 07/28/2014 Unknown Type 2 diabetes mellitus with foot ulcer ICD-9: 250.80 ICD-10: E11.621 Active 03/26/2017 Unknown Vitamin B12 deficiency anemia, unspecified ICD-9: 281.1 ICD-10: D51.9 Active 03/12/2017 Unknown Encounter for immunization ICD-9: V04.81 ICD-10: Z23 Active 07/18/2016 Unknown Mild cognitive impairment, so stated ICD-9: 331.83 ICD-10: G31.84 Active 03/08/2017 Unknown Mixed hyperlipidemia ICD-9: 272.4 ICD-10: E78.2 Active 10/11/2014 Unknown Type 2 diabetes mellitus with hyperglycemia ICD-9: 250.00 ICD-10: E11.65 Active 07/28/2014 Unknown Cardiac murmur, unspecified ICD-9: 785.2 ICD-10: R01.1 Active 05/17/2017 Unknown Cellulitis of right lower limb ICD-9: 682.7 ICD-10: L03.115 Active 03/08/2017 Unknown Dysuria ICD-9: 788.1 ICD-10: R30.0 Active 06/14/2016 Unknown Encounter for immunization ICD-9: V03.82 ICD-10: Z23 Active 09/13/2015 Unknown VACCIN FOR INFLUENZA ICD-9: V04.81 Active 07/04/2015 Unknown BACTERIAL PNEUMONIA ICD-9: 482.9 Active 10/11/2014 Unknown Cough ICD-9: 786.2 Active 10/11/2014 Unknown HYPERLIPIDEMIA ICD-9: 272.4 Active 10/11/2014 Unknown Diabetes mellitus ICD- 9: 250.00 Active 07/28/2014 Unknown ESSENTIAL HYPERTENSION ICD-9: 401.9 Active 07/28/2014 Unknown Mild cognitive impairment ICD-9: 331.83 Active 07/28/2014 Unknown DYSURIA ICD-9: 788.1 Active 05/04/2014 Unknown Dietary counseling and surveillance ICD-9: V65.3 Active 2013 Unknown Rash ICD-9: 782.1 Active 12/18/2012 Unknown Drug therapy ICD-9: V58.69 Active 09/05/2012 Unknown Callous ulcer ICD-9: 707.8 Active 07/07/2012 Unknown Cellulitis of foot ICD -9: 682.7 Active 07/07/2012 Unknown Cellulitis of toe ICD- 9: 681.10 Active 06/17/2012 Unknown Facial contusion ICD-9 : 920 Active 06/06/2012 Unknown Facial pain ICD-9: 784.0 Active 06/06/2012 Unknown Fall from slipping ICD -9: E885.9 Active 06/06/2012 Unknown CHRONIC OSTEOMYELITIS, ANKLE ICD-9: 730.17 Active 05/20/2012 Unknown Ulcer of toe ICD-9: 707.15 Active 04/21/2012 Unknown Callus of foot ICD-9: 700 Active 04/07/2012 Unknown Ulceration ICD-9: 707.9 Active 04/07/2012 Unknown Seborrheic keratosis ICD-9: 702.19 Active 09/06/2011 Unknown Leg cramps ICD-9: 729.82 Active 08/28/2011 Unknown Acute UTI ICD-9: 599.0 Active 07/20/2011 Unknown Environmental allergies ICD-9: 477.9 Active 07/06/2011 Unknown Diabetes Unknown Active 06/25/2011 Unknown Hyperlipidemia Unknown Active 06/25/2011 Unknown Hypertension Unknown Active 06/25/2011 Unknown Skin lesion ICD-9: 709.9 Active 06/25/2011 Unknown Problems Condition Codes Effective Dates Condition Status Essential (primary) hypertension ICD-9: 401.9 ICD-10: I10 07/28/2014 Active Type 2 diabetes mellitus with foot ulcer ICD-9: 250.80 ICD-10: E11.621 03/26/2017 Active Vitamin B12 deficiency anemia, unspecified ICD-9: 281.1 ICD-10: D51.9 03/12/2017 Active Encounter for immunization ICD-9: V04.81 ICD-10: Z23 07/18/2016 Active Mild cognitive impairment, so stated ICD-9: 331.83 ICD-10: G31.84 03/08/2017 Active Mixed hyperlipidemia ICD-9: 272.4 ICD-10: E78.2 10/11/2014 Active Type 2 diabetes mellitus with hyperglycemia ICD-9: 250.00 ICD-10: E11.65 07/28/2014 Active Cardiac murmur, unspecified ICD-9: 785.2 ICD-10: R01.1 05/17/2017 Active Cellulitis of right lower limb ICD-9: 682.7 ICD-10: L03.115 03/08/2017 Active Dysuria ICD-9: 788.1 ICD-10: R30.0 06/14/2016 Active Encounter for immunization ICD-9: V03.82 ICD-10: Z23 09/13/2015 Active VACCIN FOR INFLUENZA ICD-9: V04.81 07/04/2015 Active BACTERIAL PNEUMONIA ICD-9: 482.9 10/11/2014 Active Cough ICD-9: 786.2 10/11/2014 Active HYPERLIPIDEMIA ICD-9: 272.4 10/11/2014 Active Diabetes mellitus ICD- 9: 250.00 07/28/2014 Active ESSENTIAL HYPERTENSION ICD-9: 401.9 07/28/2014 Active Mild cognitive impairment ICD-9: 331.83 07/28/2014 Active DYSURIA ICD-9: 788.1 05/04/2014 Active Dietary counseling and surveillance ICD-9: V65.3 10/22/2013 Active Rash ICD-9: 782.1 12/18/2012 Active Drug therapy ICD-9: V58.69 09/05/2012 Active Callous ulcer ICD-9: 707.8 07/07/2012 Active Cellulitis of foot ICD -9: 682.7 07/07/2012 Active Cellulitis of toe ICD- 9: 681.10 06/17/2012 Active Facial contusion ICD-9 : 920 06/06/2012 Active Facial pain ICD-9: 784.0 06/06/2012 Active Fall from slipping ICD -9: E885.9 06/06/2012 Active CHRONIC OSTEOMYELITIS, ANKLE ICD-9: 730.17 05/20/2012 Active Ulcer of toe ICD-9: 707.15 04/21/2012 Active Callus of foot ICD-9: 700 04/07/2012 Active Ulceration ICD-9: 707.9 04/07/2012 Active Seborrheic keratosis ICD-9: 702.19 09/06/2011 Active Leg cramps ICD-9: 729.82 08/28/2011 Active Acute UTI ICD-9: 599.0 07/20/2011 Active Environmental allergies ICD-9: 477.9 07/06/2011 Active Diabetes Unknown 06/25/2011 Active Hyperlipidemia Unknown 06/25/2011 Active Hypertension Unknown 06/25/2011 Active Skin lesion ICD-9: 709.9 06/25/2011 Active Medications Medication Codes Instructions Start Date Stop Date Status Fill Instructions Tamiflu 75 mg capsule RxNorm: 946633 1 Capsule(s) PO BID 201711/16/2017 Active Tamiflu 75 mg capsule RxNorm: 134151 1 Capsule(s) PO BID 201711/11/2017 Inactive indapamide 2.5 mg tablet RxNorm: 338075 1 Tablet(s) PO daily 03/11/2018 Active SENDING DOSAGE CHANGE-DECREASE TO DAILY cyanocobalamin (vit B-12) 1,000 mcg/mL injection solution RxNorm: 384799 1 Milliliter(s) Inj monthly 07/10/201710/07 Inactive cyanocobalamin (vit B-12) 1,000 mcg/mL injection solution RxNorm: 844606 1 Milliliter(s) Inj monthly 07/10/201707/09 Inactive potassium chloride ER 10 mEq tablet,extended release RxNorm: 546426 TAKE TWO TABLETS BY MOUTH EVERY MORNING AND 1 IN THE PM 03/26/2017 08/22/2017 Inactive Namenda XR 28 mg capsule sprinkle,extended release RxNorm: 321215 TAKE ONE CAPSULE BY MOUTH DAILY 03/26/20172016 Inactive potassium chloride ER 10 mEq tablet,extended release RxNorm: 405234 2 Tablet(s) PO QAM 03/12/2017 03/25/2017 Inactive PATIENT TO STOP EVENING DOSE OF POTASSIUM indapamide 2.5 mg tablet RxNorm: 306737 1 Tablet(s) PO daily 09/07/2017 Inactive SENDING DOSAGE CHANGE-DECREASE TO DAILY cyanocobalamin (vit B-12) 1,000 mcg/mL injection solution RxNorm: 069006 1 Milliliter(s) Inj 03/12/2017 03/12/2017 Inactive clindamycin 300 mg capsule RxNorm: 862968 1 Capsule(s) PO BID 03/07/2017 03/16/2017 Inactive Bactrim DS 800 mg-160 mg tablet RxNorm: 676535 1 Tablet(s) PO BID 03/07/2017 09/12/2017 Inactive Bactrim DS 800 mg-160 mg tablet RxNorm: 641094 1 Tablet(s) PO BID 03/07/2017 03/06/2017 Inactive Namenda XR 28 mg capsule sprinkle,extended release RxNorm: 861287 TAKE ONE CAPSULE BY MOUTH DAILY 01/23/20172016 Inactive Namenda XR 28 mg capsule sprinkle,extended release RxNorm: 235915 TAKE ONE CAPSULE BY MOUTH DAILY 11/08/20162016 Inactive simvastatin 20 mg tablet RxNorm: 868891 TAKE ONE TABLET BY MOUTH DAILY, PREFERABLY IN THE EVENING 08/17/201609/12 Inactive indapamide 2.5 mg tablet RxNorm: 347110 TAKE ONE TABLET BY MOUTH TWICE A DAY 08/16/2016 08/23/2016 Inactive Keflex 500 mg capsule RxNorm: 061442 1 Capsule(s) PO TID 201506/21/2016 Inactive probiotic BID Keflex 500 mg capsule RxNorm: 283209 1 Capsule(s) PO TID 201506/14/2016 Inactive probiotic BID estradiol 0.5 mg tablet RxNorm: 647106 TAKE ONE TABLET BY MOUTH ONCE A DAY 05/23/2016 09/12/2017 Inactive Namenda XR 7 mg-14 mg-21 mg-28 mg capsule,sprinkle,ER 24hr, dose pack RxNorm: 153566 TAKE ONE CAPSULE BY MOUTH DAILY FOR 7 DAYS, THEN TWO CAPSULES DAILY FOR 7 DAYS , THREE DAILY FOR 7 DAYS, THEN TAKE THE 28MG 02/29/2016 03/11/2016 Inactive lisinopril 20 mg tablet RxNorm: 805097 1 Tablet(s) PO QHS TAKE ONE TABLET BY MOUTH AT BEDTIME 02/28/2016 09/12/2017 Inactive [SAVINGS FOR UNINSURED PATIENTS -- BIN:412434, PCN: ASPROD1, Group: [id number], ID# [id number], Process claim through [employer], for questions: . THIS IS NOT INSURANCE.] Bactrim DS 800 mg-160 mg tablet RxNorm: 026206 1 Tablet(s) PO BID 02/16/2016 06/21/2016 Inactive [SAVINGS FOR UNINSURED PATIENTS -- BIN:443133, PCN: ASPROD1, Group : [id number], ID# [id number], Process claim through [employer], for questions: [phone]. THIS IS NOT INSURANCE.] potassium chloride ER 10 mEq tablet,extended release RxNorm: 393419 TAKE TWO TABLETS BY MOUTH EVERY MORNING AND 1 IN THE PM 01/27/2016 07/24/2016 Inactive potassium chloride ER 10 mEq tablet,extended release RxNorm: 324183 TAKE TWO TABLETS BY MOUTH EVERY MORNING AND 1 IN THE PM 09/09/2015 11/07/2015 Inactive Namenda XR 28 mg capsule sprinkle,extended release RxNorm: 603457 TAKE ONE CAPSULE BY MOUTH DAILY 07/21/20152015 Inactive estradiol 0.5 mg tablet RxNorm: 597761 TAKE ONE TABLET BY MOUTH ONCE A DAY 07/06/2015 03/31/2016 Inactive indapamide 2.5 mg tablet RxNorm: 315195 TAKE ONE TABLET BY MOUTH TWICE A DAY 06/14/2015 08/15/2016 Inactive simvastatin 20 mg tablet RxNorm: 498882 TAKE ONE TABLET BY MOUTH ONCE A DAY 05/18/2015 05/11/2016 Inactive simvastatin 20 mg tablet RxNorm: 233103 1 Tablet(s) PO daily 08/15/2015 Inactive potassium chloride ER 10 mEq tablet,extended release RxNorm: 883416 2 Tablet(s) PO am and 1 tablet po pm 04/07/20152014 Inactive 2 in a.m., 1 in p.m. potassium chloride ER 10 mEq tablet,extended release RxNorm: 324563 2 Tablet(s) PO am and 1 tablet po pm 04/06/20152014 Inactive 2 in a.m., 1 in p.m. lisinopril 20 mg tablet RxNorm: 276296 1 Tablet(s) PO daily TAKE ONE TABLET BY MOUTH AT BEDTIME 03/30/2015 02/27/2016 Inactive [SAVINGS FOR UNINSURED PATIENTS -- BIN:672047, PCN: ASPROD1, Group: [id number], ID# [id number], Process claim through [employer], for questions: . THIS IS NOT INSURANCE.] lisinopril 20 mg tablet RxNorm: 241511 1 Tablet(s) PO daily TAKE ONE TABLET BY MOUTH AT BEDTIME 03/29/2015 03/29/2015 Inactive [SAVINGS FOR UNINSURED PATIENTS -- BIN:520151, PCN: ASPROD1, Group: [id number], ID# [id number], Process claim through [employer], for questions: . THIS IS NOT INSURANCE.] lisinopril 20 mg tablet RxNorm: 507196 TAKE ONE TABLET BY MOUTH EVERY NIGHT AT BEDTIME 10/22/2014 05/19/2015 Inactive lisinopril 20 mg tablet RxNorm: 423586 1 Tablet(s) PO daily TAKE ONE TABLET BY MOUTH AT BEDTIME 10/22/2014 03/28/2015 Inactive [SAVINGS FOR UNINSURED PATIENTS -- BIN:993664, PCN: ASPROD1, Group: [id number], ID# [id number], Process claim through [employer], for questions: . THIS IS NOT INSURANCE.] Namenda XR 28 mg capsule sprinkle,extended release RxNorm: 538843 1 Capsule(s) PO daily 10/21/2014 05/18/2015 Inactive [SAVINGS FOR UNINSURED PATIENTS -- BIN:477002 , PCN: ASPROD1, Group: AME08, ID# [id number], Process claim through [employer], for questions: . THIS IS NOT INSURANCE.] Namenda XR 7 mg-14 mg-21 mg-28 mg capsule,sprinkle,ER 24hr, dose pack RxNorm: 971809 Capsule(s) PO take as directed 10/21/2014 11/19/2014 Inactive [SAVINGS FOR UNINSURED PATIENTS -- BIN:472443, PCN: ASPROD1, Group: AME08, ID# [id number], Process claim through [employer], for questions: . THIS IS NOT INSURANCE.] ceftriaxone 500 mg solution for injection RxNorm: 621401 Inj 10/11/2014 Inactive [SAVINGS FOR UNINSURED PATIENTS -- BIN:785549, PCN: ASPROD1, Group: AME08 , ID# [id number], Process claim through [employer], for questions: . THIS IS NOT INSURANCE.] Kenalog 40 mg/mL suspension for injection RxNorm: 6431021 Milliliter(s) Inj 10/11/2014 10/11/2014 Inactive [SAVINGS FOR UNINSURED PATIENTS -- BIN:872221, PCN: ASPROD1, Group: AME08, ID# [id number], Process claim through [employer], for questions: . THIS IS NOT INSURANCE.] cefdinir 300 mg capsule RxNorm: 592282 1 Capsule(s) PO BID 02/201510/20/2014 Inactive [SAVINGS FOR UNINSURED PATIENTS -- BIN:045276, PCN: ASPROD1, Group: AME08 , ID# [id number], Process claim through [employer], for questions: . THIS IS NOT INSURANCE.] azithromycin 500 mg tablet RxNorm: 735566 1 Tablet(s) PO daily 10/11/2014 10/15/2014 Inactive [SAVINGS FOR UNINSURED PATIENTS -- BIN:368230, PCN: ASPROD1, Group: AME08, ID# [id number], Process claim through [employer], for questions: [phone]. THIS IS NOT INSURANCE.] KCL 10 meq meq RxNorm : 1 PO as doctor directed two in AM one in PM 08/20/2014 12/17/2014 Inactive [SAVINGS FOR UNINSURED PATIENTS -- BIN:788532, PCN: ASPROD1, Group: AME08, ID# [id number], Process claim through [employer], for questions: [phone]. THIS IS NOT INSURANCE.] Bactrim DS 800 mg-160 mg tablet RxNorm: 443889 1 Tablet(s) PO BID 06/21/2014 10/20/2014 Inactive [SAVINGS FOR UNINSURED PATIENTS -- BIN:611551, PCN: ASPROD1, Group : AME08, ID# [id number], Process claim through [employer], for questions: [phone]. THIS IS NOT INSURANCE.] lisinopril 20 mg tablet RxNorm: 071430 1 Tablet(s) PO daily TAKE ONE TABLET BY MOUTH AT BEDTIME 04/12/2014 10/21/2014 Inactive [SAVINGS FOR UNINSURED PATIENTS -- BIN:807639, PCN: ASPROD1, Group: AME08, ID# [id number], Process claim through [employer], for questions: . THIS IS NOT INSURANCE.] estradiol 0.5 mg tablet RxNorm: 461172 1 Tablet(s) PO daily 04/201404/06/2015 Inactive [SAVINGS FOR UNINSURED PATIENTS -- BIN:737871, PCN: ASPROD1, Group: AME08 , ID# [id number], Process claim through [employer], for questions: . THIS IS NOT INSURANCE.] indapamide 2.5 mg tablet RxNorm: 930315 1 Tablet(s) PO BID 04/201406/13/2015 Inactive [SAVINGS FOR UNINSURED PATIENTS -- BIN:139582, PCN: ASPROD1, Group: AME08 , ID# [id number], Process claim through [employer], for questions: . THIS IS NOT INSURANCE.] simvastatin 20 mg tablet RxNorm: 582203 1 Tablet(s) PO daily 04/06/2015 Inactive [SAVINGS FOR UNINSURED PATIENTS -- BIN:792509, PCN: ASPROD1, Group: AME08 , ID# [id number], Process claim through [employer], for questions: . THIS IS NOT INSURANCE.] lisinopril 20 mg tablet RxNorm: 123161 Tablet(s) PO TAKE ONE TABLET BY MOUTH AT BEDTIME 10/15/2013 04/11/2014 Inactive lisinopril 20 mg tablet RxNorm: 965361 1 Tablet(s) PO daily 10/14/2013 Inactive clindamycin 300 mg capsule RxNorm: 230247 1 Capsule(s) PO BID 04/08/2013 04/20/2013 Inactive clindamycin 300 mg capsule RxNorm: 012132 1 Capsule(s) PO BID 03/31/2013 04/07/2013 Inactive prednisone 20 mg tablet RxNorm: 651001 1 Tablet(s) PO daily 12/18/2012 Inactive prednisone 20 mg tablet RxNorm: 898288 1 Tablet(s) PO daily 12/21/2012 Inactive Kenalog 40 mg/mL Susp for Injection RxNorm: 0482414 1.5 Milliliter(s) Inj 12/18/2012 12/18/2012 Inactive Levaquin 500 mg tablet RxNorm: 494118 1 Tablet(s) PO daily 08/201207/23/2012 Inactive Bactrim DS 800 mg-160 mg tablet RxNorm: 479038 1 Tablet(s) PO BID 07/07/2012 07/16/2012 Inactive Bactrim DS 800 mg-160 mg tablet RxNorm: 316342 1 Tablet(s) PO BID 06/17/2012 06/23/2012 Inactive Bactrim DS 800 mg-160 mg Tab RxNorm: 865252 1 Tablet(s) PO BID 03/27/2012 04/09/2012 Inactive cefdinir 300 mg Cap RxNorm: 400665 1 Capsule(s) PO BID 201102/07/2012 Inactive lactobacillus acidophilus Cap RxNorm: 1 Capsule(s) PO BID 01/31/2012 Inactive cefdinir 300 mg Cap RxNorm: 586873 1 Capsule(s) PO BID 201101/31/2012 Inactive lactobacillus acidophilus Cap RxNorm: 1 Capsule(s) PO BID 02/07/2012 Inactive Cipro 500 mg Tab RxNorm: 740583 1 Tablet(s) PO BID 201009/03/2011 Inactive lactobacillus acidophilus Chewable Tab RxNorm: 1 Tablet(s) PO BID 08/28/2011 09/26/2011 Inactive Premarin 0.3 mg Tab RxNorm: 807114 1 Tablet(s) PO daily 201001/18/2012 Inactive Macrobid 100 mg Cap RxNorm: 678204 1 Capsule(s) PO BID 201007/26/2011 Inactive Pyridium 200 mg Tab RxNorm: 1823006 1 Tablet(s) PO TID PRN 07/22/2011 Inactive Cozaar 50 mg Tab RxNorm: 122563 1 Tablet(s) PO daily 201007/08/2011 Inactive Cozaar 50 mg Tab RxNorm: 983842 1 Tablet(s) PO daily 201011/05/2011 Inactive Kenalog 40 mg/mL Susp for Injection RxNorm: 9962266 1 Milliliter(s) Inj 07/09/2011 07/09/2011 Inactive Premarin 0.3 mg Tab RxNorm: 513101 1 Tablet(s) PO daily No Start Date 04/11/2014 Inactive estradiol 0.5 mg tablet RxNorm: 762937 1 Tablet(s) PO daily No Start Date 04/11/2014 Inactive indapamide Oral RxNorm : Oral No Start Date 11/21/2011 Inactive Premarin 0.3 mg Tab RxNorm: 052013 Tablet(s) PO No Start Date 07/22/2011 Inactive niacin 500 mg Tab RxNorm: 009793 1 Tablet(s) PO QHS No Start Date 08/23/2013 Inactive lisinopril 40 mg tablet RxNorm: 357753 1 Tablet(s) PO daily No Start Date 07/08/2011 Inactive niacin 500 mg Tab RxNorm: 978810 1 Tablet(s) PO daily No Start Date 07/06/2013 Inactive potassium chloride ER 10 mEq Tab RxNorm: 187857 1 Tablet(s) PO UD No Start Date 04/05/2015 Inactive 2 in a.m., 1 in p.m. lisinopril 40 mg Tab RxNorm: 388863 1 Tablet(s) PO daily No Start Date 07/08/2011 Inactive KCL 10 meq RxNorm: 1 PO as doctor directed two in AM one in PM No Start Date 08/19/2014 Inactive simvastatin 20 mg Tab RxNorm: 467425 1 Tablet(s) PO daily No Start Date 04/11/2014 Inactive indapamide 2.5 mg Tab RxNorm: 087613 1 Tablet(s) PO BID No Start Date 04/11/2014 Inactive simvastatin 20 mg Tab RxNorm: 008526 1 Tablet(s) PO daily No Start Date 05/17/2015 Inactive Zyvox 600 mg tablet RxNorm: 756766 1 Tablet(s) PO No Start Date 09/12/2017 Inactive Medication Administered Medication Codes Instructions Start Date Status cyanocobalamin (vit B-12) 1,000 mcg/mL injection solution RxNorm: 126136 1Milliliter 03/12/2017 No longer Active ceftriaxone 500 mg solution for injection RxNorm: 234751 10/11/2014 No longer Active Kenalog 40 mg/mL suspension for injection RxNorm: 0097186 Milliliter 10/11/2014 No longer Active Kenalog 40 mg/mL Susp for Injection RxNorm: 8358582 1.5Milliliter 12/18/2012 No longer Active Kenalog 40 mg/mL Susp for Injection RxNorm: 8112220 1Milliliter 07/09/2011 No longer Active Immunizations Vaccine Codes Date Status Influenza CVX: 141 07/09/2017 completed Influenza CVX: 141 07/19/2016 completed Pneumococcal (Adult) CVX: 133 09/14/2015 completed Influenza CVX: 141 07/05/2015 completed Pneumococcal (Adult) CVX: 33 09/09/2014 completed Influenza CVX: 141 07/09/2013 completed Influenza CVX: 141 07/09/2013 completed Pneumococcal CVX: 33 07/29/2007 completed Pneumococcal Unknown 04/06/2007 completed Assessments Condition Codes Effective Dates Vitamin B12 deficiency anemia, unspecified ICD-10: D51.9 ICD-9: 281.1 09/13/2017 Type 2 diabetes mellitus with foot ulcer ICD-10: E11.621 ICD-9: 250.80 09/13/2017 Essential (primary) hypertension ICD-10: I10 ICD-9: 401.9 09/13/2017 Encounter for immunization ICD-10: Z23 ICD-9: V04.81 07/09/2017 Type 2 diabetes mellitus with hyperglycemia ICD-10: E11.65 ICD-9: 250.00 07/09/2017 Cardiac murmur, unspecified ICD-10: R01.1 ICD-9: 785.2 05/17/2017 Cellulitis of right lower limb ICD-10: L03.115 ICD-9: 682.7 04/23/2017 Mild cognitive impairment, so stated ICD-10: G31.84 ICD-9: 331.83 03/08/2017 Dysuria ICD-10: R30.0 ICD-9: 788.1 06/15/2016 Mixed hyperlipidemia ICD-10: E78.2 ICD-9: 272.4 09/14/2015 Encounter for immunization ICD-10: Z23 ICD-9: V03.82 09/14/2015 VACCIN FOR INFLUENZA ICD-9: V04.81 2014 DIABETES TYPE II ICD-9: 250.00 2014 MCI (mild cognitive impairment) ICD-9: 331.83 10/21/2014 ESSENTIAL HYPERTENSION ICD-9: 401.9 10/21 BACTERIAL PNEUMONIA ICD-9: 482.9 2014 HYPERLIPIDEMIA ICD-9: 272.4 10/11/2014 Cough ICD-9: 786.2 10/11/2014 DYSURIA ICD-9: 788.1 06/21/2014 ENCNTR LONG-RX USE NEC ICD-9: V58.69 Dietary counseling and surveillance ICD-9: V65.3 10/22/2013 CELLULITIS, TOE ICD-9: 681.10 04/02/2013 ULCER OTHER PART OF FOOT ICD-9: 707.15 Rash ICD-9: 782.1 12/18/2012 CHRONIC SKIN ULCER NEC ICD-9: 707.8 10/20 CORNS AND CALLOSITIES ICD-9: 700 2011 CHRONIC SKIN ULCER ICD-9: 707.9 2011 CELLULITIS OF FOOT ICD-9: 682.7 2011 Facial pain ICD-9: 784.0 06/06/2012 Fall from slipping ICD-9: E885.9 2011 Facial contusion ICD-9: 920 06/06/2012 CHRONIC OSTEOMYELITIS, ANKLE ICD-9: 730.17 05/20/2012 SKIN DISORDER ICD-9: 709.9 04/07/2012 Urinary tract infection, recurrent ICD-9: 599.0 09/06/2011 Seborrheic keratosis ICD-9: 702.19 2010 Leg cramps ICD-9: 729.82 08/28/2011 Environmental allergies ICD-9: 477.9 Reason For Visit Reason For Visit Effective Dates Notes diabetes mellitus 09/13/2017 foot ulcer 07/09/2017 still improving blood pressure followup 05/17/2017 foot ulcer 04/23/2017 still improving foot ulcer 03/26/2017 improving swelling 03/12/2017 improving swelling 03/08/2017 vaccination against influenza 07/19/2016 dysuria 02/16/2016 hypertension 09/14/2015 she reports being forgetful vaccination against influenza 07/05/2015 hypertension 10/21/2014 pt reports that memory is slowly getting worse hypertension 10/11/2014 pt reports that memory is slowly getting worse vaccination against pneumonia 09/09/2014 hypertension 07/28/2014 pt reports that memory is slowly getting worse hypertension 01/27/2014 diabetes mellitus 10/22/2013 Hospital Follow Up 08/24/2013 foot ulcer 04/02/2013 foot ulcer 03/31/2013 rash 12/18/2012 foot ulcer 10/20/2012 foot ulcer 10/16/2012 foot ulcer 08/13/2012 foot ulcer 07/29/2012 foot ulcer 07/17/2012 foot ulcer 07/07/2012 foot ulcer 06/26/2012 foot ulcer 06/17/2012 ecchymosis 06/06/2012 hypertension 05/20/2012 foot ulcer 05/06/2012 left great toe hypertension 04/21/2012 hypertension 04/07/2012 hypertension 03/27/2012 hypertension 11/22/2011 new lesion 09/06/2011 urinary urgency 08/28/2011 urinary frequency 07/20/2011 cough 07/06/2011 hypertension 06/25/2011 Results Observation Observation Code Item Item Code Result Date Comp Metabolic Xkf358 NA 141 mEq/L 07/10/2017 Comp Metabolic Nam785 K 4.6 mEq/L 07/10/2017 Comp Metabolic Enl310 CL 104 mEq/L 07/10/2017 Comp Metabolic Fae051 CO2 25.0 mEq/L 07/10/2017 Comp Metabolic Yzh299 ANION GAP 17 07/10/2017 Comp Metabolic Epa253 GLUCOSE 96 mg/dL 07/10/2017 Comp Metabolic Zuh360 Creat 0.9 mg/dL 07/10/2017 Comp Metabolic Gsu345 eGFR 64 ml/min/1.73m2 07/10/2017 Comp Metabolic Znt735 BUN 20 mg/dL 07/10/2017 Comp Metabolic Rri512 B/C Ratio 22.7 Ratio 07/10/2017 Comp Metabolic Vzi581 CALCIUM 8.9 mg/dL 07/10/2017 Comp Metabolic Yuj305 ALK PHOS 83 U/L 07/10/2017 Comp Metabolic Cje969 AST(SGOT) 17 U/L 07/10/2017 Comp Metabolic Wlf168 ALT(SGPT) 9 U/L 07/10/2017 Comp Metabolic Lps073 BILI T 0.3 mg/dL 07/10/2017 Comp Metabolic Zzu375 ALBUMIN 3.5 g/dL 07/10/2017 Comp Metabolic Iqq945 TPRO 6.9 g/dL 07/10/2017 Comp Metabolic Gkc231 GLOB 3.4 g/dL 07/10/2017 Comp Metabolic Pbf585 A/G Ratio 1.0 Ratio 07/10/2017 Comp Metabolic Olt352 Osmo 284 mOsmo 07/10/2017 B12 Kva476 B12 240.00 pg/ml 07/09/2017 %Hba1C Sps184 % HbA1c 76913-7 6.2 % 07/09/2017 %Hba1C Ukm033 Gluc Ave 131 mg/dL 07/09/2017 Tsh Ord6 hTSH II 2.81 uIU/mL 07/09/2017 Cbc With Differential Ord2 WBC 6.94 K/ul 07/09/2017 Cbc With Differential Ord2 RBC 3.87 M/ul 07/09/2017 Cbc With Differential Ord2 HGB 11.6 g/dl 07/09/2017 Cbc With Differential Ord2 Neut% 47.5 % 07/09/2017 Cbc With Differential Ord2 HCT 36.3 % 07/09/2017 Cbc With Differential Ord2 MCV 93.8 fl 07/09/2017 Cbc With Differential Ord2 Lymph% 39.8 % 07/09/2017 Cbc With Differential Ord2 MCH 30.0 pg 07/09/2017 Cbc With Differential Ord2 [place]% 9.1 % 07/09/2017 Cbc With Differential Ord2 MCHC 32.0 pg 07/09/2017 Cbc With Differential Ord2 Eos% 3.2 % 07/09/2017 Cbc With Differential Ord2 PLT 420 K/ul 07/09/2017 Cbc With Differential Ord2 Baso% 0.4 % 07/09/2017 Cbc With Differential Ord2 RDW 15.7 % 07/09/2017 Cbc With Differential Ord2 Neut ABS# 3.30 K/ul 07/09/2017 Cbc With Differential Ord2 Lymph ABS# 2.76 K/ul 07/09/2017 Cbc With Differential Ord2 Lynn ABS# 0.6 K/ul 07/09/2017 Cbc With Differential Ord2 Eos ABS# 0.2 K/ul 07/09/2017 Cbc With Differential Ord2 Baso ABS# 0.0 K/ul 07/09/2017 Cbc With Differential Ord2 WBC 8.73 K/ul 03/11/2017 Cbc With Differential Ord2 RBC 3.88 M/ul 03/11/2017 Cbc With Differential Ord2 HGB 12.3 g/dl 03/11/2017 Cbc With Differential Ord2 Neut% 69.2 % 03/11/2017 Cbc With Differential Ord2 HCT 36.7 % 03/11/2017 Cbc With Differential Ord2 MCV 94.6 fl 03/11/2017 Cbc With Differential Ord2 Lymph% 21.5 % 03/11/2017 Cbc With Differential Ord2 MCH 31.7 pg 03/11/2017 Cbc With Differential Ord2 Lynn% 7.6 % 03/11/2017 Cbc With Differential Ord2 MCHC 33.5 pg 03/11/2017 Cbc With Differential Ord2 Eos% 1.4 % 03/11/2017 Cbc With Differential Ord2 PLT 434 K/ul 03/11/2017 Cbc With Differential Ord2 Baso% 0.3 % 03/11/2017 Cbc With Differential Ord2 RDW 13.2 % 03/11/2017 Cbc With Differential Ord2 Neut ABS# 6.04 K/ul 03/11/2017 Cbc With Differential Ord2 Lymph ABS# 1.88 K/ul 03/11/2017 Cbc With Differential Ord2 Lynn ABS# 0.7 K/ul 03/11/2017 Cbc With Differential Ord2 Eos ABS# 0.1 K/ul 03/11/2017 Cbc With Differential Ord2 Baso ABS# 0.0 K/ul 03/11/2017 Tsh Ord6 hTSH II 2.69 uIU/mL 03/11/2017 B12 Ddn063 B12 216.00 pg/ml 03/11/2017 Folate Ord36 Folate 11.09 ng/mL 03/11/2017 %Hba1C Xsx339 % HbA1c 69185-0 6.5 % 03/11/2017 %Hba1C Awz201 Gluc Ave 140 mg/dL 03/11/2017 Comp Metabolic Oog713 NA 138 mEq/L 03/11/2017 Comp Metabolic Rde516 K 4.0 mEq/L 03/11/2017 Comp Metabolic Vjf457 CL 100 mEq/L 03/11/2017 Comp Metabolic Ged204 CO2 27.0 mEq/L 03/11/2017 Comp Metabolic Mrr629 ANION GAP 15 03/11/2017 Comp Metabolic Zvp801 GLUCOSE 140 mg/dL 03/11/2017 Comp Metabolic Kvw907 Creat 1.9 mg/dL 03/11/2017 Comp Metabolic Acx716 eGFR 27 ml/min/1.73m2 03/11/2017 Comp Metabolic Yna991 BUN 33 mg/dL 03/11/2017 Comp Metabolic Zkj623 B/C Ratio 17.7 Ratio 03/11/2017 Comp Metabolic Zcv145 CALCIUM 8.3 mg/dL 03/11/2017 Comp Metabolic Qiq126 ALK PHOS 78 U/L 03/11/2017 Comp Metabolic Ude361 AST(SGOT) 13 U/L 03/11/2017 Comp Metabolic Ygs318 ALT(SGPT) 10 U/L 03/11/2017 Comp Metabolic Cyu500 BILI T 0.4 mg/dL 03/11/2017 Comp Metabolic Nvc086 ALBUMIN 3.3 g/dL 03/11/2017 Comp Metabolic Imh370 TPRO 6.1 g/dL 03/11/2017 Comp Metabolic Ajy933 GLOB 2.8 g/dL 03/11/2017 Comp Metabolic Rcj335 A/G Ratio 1.2 Ratio 03/11/2017 Comp Metabolic Iwb611 Osmo 285 mOsmo 03/11/2017 Free T4 Qae968 FREE T4 0.82 ng/dL 03/11/2017 Culture Urine [id number] URINE CULTURE SEE NOTES 06/19/2016 Urine Culture Ucult Preliminary NO Growth Day 1 06/18/2016 Urine Culture Ucult Complete Growth of aerobe sent to ref lab 06/18/2016 Urine Culture Ucult Preliminary No Growth Day 1 02/18/2016 Urine Culture Ucult Complete No Growth Day 2 02/18/2016 Cbc With Differential Ord2 WBC 6.1 K/uL 09/16/2015 Cbc With Differential Ord2 LYM 2.5 K/uL 09/16/2015 Cbc With Differential Ord2 LYM% 40.5 % 09/16/2015 Cbc With Differential Ord2 NEUT/GRAN 3.2 K/uL 09/16/2015 Cbc With Differential Ord2 NEUT/GRAN % 52.2 % 09/16/2015 Cbc With Differential Ord2 MID 0.4 K/uL 09/16/2015 Cbc With Differential Ord2 MID% 7.3 % 09/16/2015 Cbc With Differential Ord2 RBC 4.23 M/uL 09/16/2015 Cbc With Differential Ord2 HGB 13.5 g/dL 09/16/2015 Cbc With Differential Ord2 HCT 41.6 % 09/16/2015 Cbc With Differential Ord2 MCV 98 fL 09/16/2015 Cbc With Differential Ord2 MCH 32 pg 09/16/2015 Cbc With Differential Ord2 MCHC 33 g/dL 09/16/2015 Cbc With Differential Ord2 PLT 293 K/uL 09/16/2015 Cbc With Differential Ord2 RDW 13.5 % 09/16/2015 Comp Metabolic Gnz130 NA 141 mEq/L 09/16/2015 Comp Metabolic Lav834 K 4.3 mEq/L 09/16/2015 Comp Metabolic Rxd815 CL 105 mEq/L 09/16/2015 Comp Metabolic Gqq480 CO2 26.0 mEq/L 09/16/2015 Comp Metabolic Eyx608 ANION GAP 14 09/16/2015 Comp Metabolic Fei674 GLUCOSE 113 mg/dL 09/16/2015 Comp Metabolic Whw984 Creat 0.9 mg/dL 09/16/2015 Comp Metabolic Tah453 eGFR 64 ml/min/1.73m2 09/16/2015 Comp Metabolic Mhb024 BUN 13 mg/dL 09/16/2015 Comp Metabolic Zkl342 B/C Ratio 14.6 Ratio 09/16/2015 Comp Metabolic Iko872 CALCIUM 9.0 mg/dL 09/16/2015 Comp Metabolic Rcx639 ALK PHOS 77 U/L 09/16/2015 Comp Metabolic Nha576 AST(SGOT) 18 U/L 09/16/2015 Comp Metabolic Qvi428 ALT(SGPT) 14 U/L 09/16/2015 Comp Metabolic Acx771 BILI T 0.4 mg/dL 09/16/2015 Comp Metabolic Roi150 ALBUMIN 3.8 g/dL 09/16/2015 Comp Metabolic Bec741 TPRO 6.4 g/dL 09/16/2015 Comp Metabolic Fdd123 GLOB 2.6 g/dL 09/16/2015 Comp Metabolic Ohu452 A/G Ratio 1.4 Ratio 09/16/2015 Comp Metabolic Xzt395 Osmo 282 mOsmo 09/16/2015 Lipid Ord30 CHOL 175 mg/dL 09/16/2015 Lipid Ord30 HDL 39.0 mg/dl 09/16/2015 Lipid Ord30 TRIG 145 mg/dL 09/16/2015 Lipid Ord30 LDL 107 mg/dL 09/16/2015 Lipid Ord30 C/HDL 4.5 Ratio 09/16/2015 Tsh Ord6 hTSH II 2.59 uIU/mL 09/16/2015 %Hba1C Bjn952 % HbA1c 25482-9 6.4 % 09/16/2015 %Hba1C Kgf338 Gluc Ave 137 mg/dL 09/16/2015 CBC [id number] WBC 7.7 10e9/L 01/21/2014 CBC [id number] RBC 4.51 10e12/L 01/21/2014 CBC [id number] HGB 14.2 g/dL 01/21/2014 CBC [id number] HCT DET 42.2 % 01/21/2014 CBC [id number] MCV 93.6 fL 01/21/2014 CBC [id number] MCH 31.5 pg 01/21/2014 CBC [id number] MCHC 33.6 g/dL 01/21/2014 CBC [id number] PLT 368 10e9/L 01/21/2014 CBC [id number] MPV 11.2 fL 01/21/2014 CBC [id number] EDISON % 43.2 % 01/21/2014 CBC [id number] LY % 41.3 % 01/21/2014 CBC [id number] MON % 10.3 % 01/21/2014 CBC [id number] EOS % 4.7 % 01/21/2014 CBC [id number] BASO % 0.5 % 01/21/2014 CBC [id number] RDW 13.9 % 01/21/2014 CBC [id number] ABS EDISON 3.33 10e9/L 01/21/2014 CBC [id number] ABS LYMPH 3.18 10e9/L 01/21/2014 CBC [id number] ABS MONO 0.79 10e9/L 01/21/2014 CBC [id number] ABS EOS 0.36 10e9/L 01/21/2014 CBC [id number] ABS BASO 0.04 10e9/L 01/21/2014 CBC [id number] RDW-SD 46.5 fL 01/21/2014 LIPID GRP HDL TEST 41 MG/DL 01/21/2014 LIPID GRP TRIG 206 MG/DL 01/21/2014 LIPID GRP TEST LDL 105 MG/DL 01/21/2014 LIPID GRP CHOL 187 MG/DL 01/21/2014 LIPID GRP RCHOL/HDL 4.56 RATIO 01/21/2014 GFR CALC 0277156 GFR AA >60 ML/MIN 01/21/2014 GFR CALC 2542715 GFR NON-AA >60 ML/MIN 01/21/2014 A1C HPLC [id number] A1C HPLC 38279-7 6.2 % 01/21/2014 CHEM 14 [id number] AST 22 U/L 01/21/2014 CHEM 14 8973855 ALT 21 IU/L 01/21/2014 CHEM 14 1467137 BUN 19 MG/DL 01/21/2014 CHEM 14 7253925 ALBUMIN 4.2 GM/DL 01/21/2014 CHEM 14 4620417 CHLORIDE 101 MMOL/L 01/21/2014 CHEM 14 3151596 BILI TOT 0.5 MG/DL 01/21/2014 CHEM 14 0505331 ALK PHOS 58 U/L 01/21/2014 CHEM 14 1891924 SODIUM 139 MMOL/L 01/21/2014 CHEM 14 3701206 CREATININE 0.76 MG/DL 01/21/2014 CHEM 14 3047517 CALCIUM 9.8 MG/DL 01/21/2014 CHEM 14 2940409 POTASSIUM 3.7 MMOL/L 01/21/2014 CHEM 14 0395403 PROT TOT 6.8 GM/DL 01/21/2014 CHEM 14 0897224 GLUCOSE 115 MG/DL 01/21/2014 CHEM 14 9656510 BICARB 29 MMOL/L 01/21/2014 CHEM 14 4795343 ANION GAP 9 MEQ/L 01/21/2014 TSH 5160027 TSH 3.283 uIU/ML 01/21/2014 GFR CALC 1998694 GFR AA >60 ML/MIN 10/22/2013 GFR CALC 1333860 GFR NON-AA >60 ML/MIN 10/22/2013 CHEM 14 5365925 AST 21 U/L 10/22/2013 CHEM 14 7490012 ALT 20 IU/L 10/22/2013 CHEM 14 0070431 BUN 23 MG/DL 10/22/2013 CHEM 14 5467625 ALBUMIN 4.3 GM/DL 10/22/2013 CHEM 14 9020528 CHLORIDE 102 MMOL/L 10/22/2013 CHEM 14 8044515 BILI TOT 0.5 MG/DL 10/22/2013 CHEM 14 4420440 ALK PHOS 55 U/L 10/22/2013 CHEM 14 8404288 SODIUM 137 MMOL/L 10/22/2013 CHEM 14 0879561 CREATININE 0.87 MG/DL 10/22/2013 CHEM 14 6143358 CALCIUM 10.1 MG/DL 10/22/2013 CHEM 14 8767106 POTASSIUM 4.2 MMOL/L 10/22/2013 CHEM 14 7758163 PROT TOT 6.7 GM/DL 10/22/2013 CHEM 14 4062837 GLUCOSE 103 MG/DL 10/22/2013 CHEM 14 4363903 BICARB 28 MMOL/L 10/22/2013 CHEM 14 0375492 ANION GAP 7 MEQ/L 10/22/2013 CBC 9420603 WBC 8.4 10e9/L 10/22/2013 CBC 3958634 RBC 4.50 10e12/L 10/22/2013 CBC 9759648 HGB 14.0 g/dL 10/22/2013 CBC 5904399 HCT DET 41.8 % 10/22/2013 CBC [id number] MCV 92.9 fL 10/22/2013 CBC 8181805 MCH 31.1 pg 10/22/2013 CBC 2428105 MCHC 33.5 g/dL 10/22/2013 CBC 2358787 PLT 377 10e9/L 10/22/2013 CBC 9348653 MPV 11.3 fL 10/22/2013 CBC [id number] EDISON % 47.5 % 10/22/2013 CBC [id number] LY % 38.7 % 10/22/2013 CBC 3154834 MON % 10.5 % 10/22/2013 CBC [id number] EOS % 2.6 % 10/22/2013 CBC [id number] BASO % 0.7 % 10/22/2013 CBC 1353488 RDW 14.9 % 10/22/2013 CBC [id number] ABS EDISON 3.99 10e9/L 10/22/2013 CBC [id number] ABS LYMPH 3.25 10e9/L 10/22/2013 CBC 4371162 ABS MONO 0.88 10e9/L 10/22/2013 CBC 3084960 ABS EOS 0.22 10e9/L 10/22/2013 CBC [id number] ABS BASO 0.06 10e9/L 10/22/2013 CBC 5096441 RDW-SD 48.5 fL 10/22/2013 A1C HPLC [id number] A1C HPLC 19048-4 6.3 % 10/22/2013 CHEM 14 [id number] AST 21 U/L 09/05/2012 CHEM 14 1681254 ALT 18 IU/L 09/05/2012 CHEM 14 6786117 BUN 23 MG/DL 09/05/2012 CHEM 14 5321157 ALBUMIN 4.1 GM/DL 09/05/2012 CHEM 14 1825821 CHLORIDE 103 MMOL/L 09/05/2012 CHEM 14 9223031 BILI TOT 0.5 MG/DL 09/05/2012 CHEM 14 5903135 ALK PHOS 55 U/L 09/05/2012 CHEM 14 7924313 SODIUM 141 MMOL/L 09/05/2012 CHEM 14 7788281 CREATININE 0.80 MG/DL 09/05/2012 CHEM 14 2876800 CALCIUM 9.5 MG/DL 09/05/2012 CHEM 14 4434690 POTASSIUM 4.0 MMOL/L 09/05/2012 CHEM 14 7490366 PROT TOT 7.0 GM/DL 09/05/2012 CHEM 14 5638802 GLUCOSE 105 MG/DL 09/05/2012 CHEM 14 7044307 BICARB 29 MMOL/L 09/05/2012 CHEM 14 8924391 ANION GAP 9 MEQ/L 09/05/2012 CBC [id number] WBC 6.8 10e9/L 09/05/2012 CBC [id number] RBC 4.52 10e12/L 09/05/2012 CBC 6335331 HGB 14.4 g/dL 09/05/2012 CBC 8469151 HCT DET 42.5 % 09/05/2012 CBC [id number] MCV 94.0 fL 09/05/2012 CBC [id number] MCH 31.9 pg 09/05/2012 CBC [id number] MCHC 33.9 g/dL 09/05/2012 CBC 6643295 PLT 333 10e9/L 09/05/2012 CBC 1073428 MPV 10.9 fL 09/05/2012 CBC [id number] EDISON % 42.6 % 09/05/2012 CBC [id number] LY % 43.0 % 09/05/2012 CBC [id number] MON % 9.9 % 09/05/2012 CBC [id number] EOS % 3.8 % 09/05/2012 CBC 9919655 BASO % 0.7 % 09/05/2012 CBC 8471512 RDW 13.4 % 09/05/2012 CBC [id number] ABS EDISON 2.90 10e9/L 09/05/2012 CBC [id number] ABS LYMPH 2.92 10e9/L 09/05/2012 CBC 4066430 ABS MONO 0.67 10e9/L 09/05/2012 CBC 8569754 ABS EOS 0.26 10e9/L 09/05/2012 CBC 9204693 ABS BASO 0.05 10e9/L 09/05/2012 CBC 0712191 RDW-SD 45.0 fL 09/05/2012 GFR CALC 1098855 GFR AA >60 ML/MIN 09/05/2012 GFR CALC 1978381 GFR NON-AA >60 ML/MIN 09/05/2012 A1C HPLC [id number] A1C HPLC 43069-0 5.7 % 09/05/2012 URINALYSIS NONAUTO W/O SCOPE 29602 Specific [place] 1.010 DateTime(Free Text in Aprima) URINALYSIS NONAUTO W/O SCOPE 77102 PH 7.0 DateTime(Free Text in Aprima) URINALYSIS NONAUTO W/O SCOPE 91963 GLUCOSE neg DateTime( Free Text in Aprima) URINALYSIS NONAUTO W/O SCOPE 83120 Protein 1+ DateTime( Free Text in Aprima) URINALYSIS NONAUTO W/O SCOPE 34265 Blood 3+ DateTime(Free Text in Aprima) URINALYSIS NONAUTO W/O SCOPE 83371 Bilirubin neg DateTime(Free Text in Aprima) URINALYSIS NONAUTO W/O SCOPE 03865 Ketones neg DateTime( Free Text in Aprima) URINALYSIS NONAUTO W/O SCOPE 72405 Urobilinogen neg DateTime(Free Text in Aprima) URINALYSIS NONAUTO W/O SCOPE 82169 Nitrite neg DateTime( Free Text in Aprima) URINALYSIS NONAUTO W/O SCOPE 11425 Leukocytes 3+ DateTime(Free Text in Aprima) URINALYSIS NONAUTO W/O SCOPE 64818 Specific [place] 1.125 DateTime(Free Text in Aprima) URINALYSIS NONAUTO W/O SCOPE 94443 PH 6.5 DateTime(Free Text in Aprima) URINALYSIS NONAUTO W/O SCOPE 53387 GLUCOSE N DateTime( Free Text in Aprima) URINALYSIS NONAUTO W/O SCOPE 89451 Protein ++ DateTime( Free Text in Aprima) URINALYSIS NONAUTO W/O SCOPE 99675 Blood ++ DateTime(Free Text in Aprima) URINALYSIS NONAUTO W/O SCOPE 94675 Bilirubin N DateTime( Free Text in Aprima) URINALYSIS NONAUTO W/O SCOPE 72662 Ketones N DateTime( Free Text in Aprima) URINALYSIS NONAUTO W/O SCOPE 49811 Urobilinogen N DateTime(Free Text in Aprima) URINALYSIS NONAUTO W/O SCOPE 80146 Nitrite N DateTime( Free Text in Apr[employer]) URINALYSIS NONAUTO W/O SCOPE 55697 Leukocytes +++ DateTime(Free Text in Aprima) Review of Systems System Result Effective Dates Constitutional No recent illness 2016 Constitutional No anorexia 09/13/2017 Constitutional No night sweats 2016 Constitutional No chills 09/13/2017 Constitutional No diaphoresis 09/13/2017 Constitutional fatigue 09/13/2017 Constitutional No fever 09/13/2017 Constitutional No insomnia 09/13/2017 Constitutional No malaise 09/13/2017 Eyes No eye discharge 09/13/2017 Ears/Nose/Throat/Neck No dizziness 2016 Ears/Nose/Throat/Neck No headache 2016 Cardiovascular No chest pain/pressure 05/2017 Respiratory No cough 09/13/2017 Gastrointestinal No abdominal pain 2016 Genitourinary/Nephrology No dysuria 09/13 Musculoskeletal joint complaint 2016 Dermatologic sores 09/13/2017 Neurologic memory loss 09/13/2017 Psychiatric No anxiety 09/13/2017 Constitutional No recent illness 2016 Constitutional No anorexia 07/09/2017 Constitutional No night sweats 2016 Constitutional No chills 07/09/2017 Constitutional No diaphoresis 07/09/2017 Constitutional No fatigue 07/09/2017 Constitutional No fever 07/09/2017 Constitutional No insomnia 07/09/2017 Constitutional No malaise 07/09/2017 Eyes No eye discharge 07/09/2017 Ears/Nose/Throat/Neck No dizziness 2016 Ears/Nose/Throat/Neck No headache 2016 Cardiovascular No chest pain/pressure 12/2016 Respiratory No cough 07/09/2017 Gastrointestinal No abdominal pain 2016 Genitourinary/Nephrology No dysuria 07/09 Musculoskeletal joint complaint 2016 Dermatologic sores 07/09/2017 Neurologic memory loss 07/09/2017 Psychiatric No anxiety 07/09/2017 Constitutional No recent illness 2016 Constitutional No anorexia 05/17/2017 Constitutional No night sweats 2016 Constitutional No chills 05/17/2017 Constitutional No diaphoresis 05/17/2017 Constitutional No fatigue 05/17/2017 Constitutional No fever 05/17/2017 Constitutional No insomnia 05/17/2017 Constitutional No malaise 05/17/2017 Constitutional No weight loss 05/17/2017 Constitutional No weight gain 05/17/2017 Cardiovascular No chest pain/pressure 08/2017 Cardiovascular No dyspnea 05/17/2017 Cardiovascular No edema 05/17/2017 Cardiovascular hypertension 05/17/2017 Cardiovascular No palpitations 2016 Cardiovascular No paroxysmal nocturnal dyspnea 05/17/2017 Cardiovascular No syncope 05/17/2017 Cardiovascular No arrhythmia 05/17/2017 Respiratory No cough 05/17/2017 Musculoskeletal joint complaint 2016 Dermatologic sores 05/17/2017 Neurologic memory loss 05/17/2017 Ears/Nose/Throat/Neck No dizziness 2016 Ears/Nose/Throat/Neck No headache 2016 Eyes No vision change 05/17/2017 Constitutional No recent illness 2016 Constitutional No anorexia 04/23/2017 Constitutional No night sweats 2016 Constitutional No chills 04/23/2017 Constitutional No diaphoresis 04/23/2017 Constitutional No fatigue 04/23/2017 Constitutional No fever 04/23/2017 Constitutional No insomnia 04/23/2017 Constitutional No malaise 04/23/2017 Eyes No eye discharge 04/23/2017 Ears/Nose/Throat/Neck No dizziness 2016 Ears/Nose/Throat/Neck No headache 2016 Cardiovascular No chest pain/pressure Respiratory No cough 04/23/2017 Gastrointestinal No abdominal pain 2016 Genitourinary/Nephrology No dysuria 04/23 Musculoskeletal joint complaint 2016 Dermatologic sores 04/23/2017 Neurologic memory loss 04/23/2017 Psychiatric No anxiety 04/23/2017 Constitutional No recent illness 2016 Constitutional No anorexia 03/26/2017 Constitutional No night sweats 2016 Constitutional No chills 03/26/2017 Constitutional No diaphoresis 03/26/2017 Constitutional No fatigue 03/26/2017 Constitutional No fever 03/26/2017 Constitutional No insomnia 03/26/2017 Constitutional No malaise 03/26/2017 Constitutional No weight loss 03/26/2017 Constitutional No weight gain 03/26/2017 Eyes No eye discharge 03/26/2017 Ears/Nose/Throat/Neck No dizziness 2016 Ears/Nose/Throat/Neck No headache 2016 Cardiovascular No chest pain/pressure Respiratory No cough 03/26/2017 Gastrointestinal No abdominal pain 2016 Genitourinary/Nephrology No dysuria 03/26 Musculoskeletal joint complaint 2016 Dermatologic sores 03/26/2017 Neurologic memory loss 03/26/2017 Psychiatric No anxiety 03/26/2017 Constitutional No recent illness 2016 Constitutional No anorexia 03/12/2017 Constitutional No night sweats 2016 Constitutional No chills 03/12/2017 Constitutional No diaphoresis 03/12/2017 Constitutional No fatigue 03/12/2017 Constitutional No fever 03/12/2017 Constitutional No insomnia 03/12/2017 Constitutional No malaise 03/12/2017 Constitutional No weight loss 03/12/2017 Constitutional No weight gain 03/12/2017 Eyes No eye discharge 03/12/2017 Ears/Nose/Throat/Neck No dizziness 2016 Ears/Nose/Throat/Neck No headache 2016 Cardiovascular No chest pain/pressure 03/2017 Respiratory No cough 03/12/2017 Gastrointestinal No abdominal pain 2016 Genitourinary/Nephrology No dysuria 03/12 Musculoskeletal joint complaint 2016 Dermatologic sores 03/12/2017 Neurologic memory loss 03/12/2017 Psychiatric No anxiety 03/12/2017 Constitutional No recent illness 2016 Constitutional No anorexia 03/08/2017 Constitutional No night sweats 2016 Constitutional No chills 03/08/2017 Constitutional No diaphoresis 03/08/2017 Constitutional No fatigue 03/08/2017 Constitutional No fever 03/08/2017 Constitutional No insomnia 03/08/2017 Constitutional No malaise 03/08/2017 Constitutional No weight loss 03/08/2017 Constitutional No weight gain 03/08/2017 Eyes No eye discharge 03/08/2017 Ears/Nose/Throat/Neck No dizziness 2016 Ears/Nose/Throat/Neck No headache 2016 Cardiovascular No chest pain/pressure 11/2016 Respiratory No cough 03/08/2017 Gastrointestinal No abdominal pain 2016 Dermatologic sores 03/08/2017 Genitourinary/Nephrology No dysuria 03/08 Musculoskeletal joint complaint 2016 Neurologic memory loss 03/08/2017 Psychiatric No anxiety 03/08/2017 Constitutional recent illness 02/16/2016 Constitutional No chills 02/16/2016 Constitutional No diaphoresis 02/16/2016 Constitutional No fatigue 02/16/2016 Constitutional No fever 02/16/2016 Constitutional No insomnia 02/16/2016 Constitutional No malaise 02/16/2016 Eyes No vision change 02/16/2016 Ears/Nose/Throat/Neck No nasal allergies 02/16/2016 Ears/Nose/Throat/Neck No nasal discharge 02/16/2016 Ears/Nose/Throat/Neck No sinus congestion 02/16/2016 Cardiovascular No dyspnea 02/16/2016 Cardiovascular No fatigue 02/16/2016 Respiratory No chest congestion 2015 Respiratory No cough 02/16/2016 Gastrointestinal No abdominal pain 2015 Gastrointestinal No constipation 2015 Gastrointestinal No diarrhea 02/16/2016 Gastrointestinal No nausea 02/16/2016 Gastrointestinal No vomiting 02/16/2016 Musculoskeletal No back pain 02/16/2016 Musculoskeletal No joint complaint 2015 Psychiatric No anxiety 02/16/2016 Psychiatric No depression 02/16/2016 Genitourinary/Nephrology urinary urgency 02/16/2016 Genitourinary/Nephrology dysuria 2015 Dermatologic No rash 02/16/2016 Neurologic No alteration of consciousness 02/16/2016 Constitutional recent illness 09/14/2015 Constitutional No anorexia 09/14/2015 Constitutional No night sweats 2014 Constitutional No chills 09/14/2015 Constitutional No diaphoresis 09/14/2015 Constitutional No fatigue 09/14/2015 Constitutional No fever 09/14/2015 Constitutional No insomnia 09/14/2015 Constitutional No malaise 09/14/2015 Eyes No vision change 09/14/2015 Ears/Nose/Throat/Neck No dental pain 06/2015 Ears/Nose/Throat/Neck No dizziness 2014 Ears/Nose/Throat/Neck No facial pain 06/2015 Ears/Nose/Throat/Neck No headache 2014 Ears/Nose/Throat/Neck No hearing loss 06/2015 Ears/Nose/Throat/Neck No nasal allergies 09/14/2015 Ears/Nose/Throat/Neck No nasal discharge 09/14/2015 Ears/Nose/Throat/Neck No sinus congestion 09/14/2015 Cardiovascular No dyspnea 09/14/2015 Cardiovascular No fatigue 09/14/2015 Cardiovascular hypertension 09/14/2015 Respiratory No chest congestion 2014 Respiratory No chest tightness 2014 Respiratory No cough 09/14/2015 Gastrointestinal No abdominal pain 2014 Gastrointestinal No constipation 2014 Gastrointestinal No diarrhea 09/14/2015 Gastrointestinal No nausea 09/14/2015 Gastrointestinal No vomiting 09/14/2015 Genitourinary/Nephrology No dysuria 09/14 Genitourinary/Nephrology No urinary urgency 09/14/2015 Genitourinary/Nephrology No urinary frequency 09/14/2015 Musculoskeletal No stiffness 09/14/2015 Musculoskeletal No swelling 09/14/2015 Musculoskeletal No arthralgia(s) 2014 Musculoskeletal No back pain 09/14/2015 Musculoskeletal No bone pain 09/14/2015 Musculoskeletal No joint complaint 2014 Musculoskeletal No muscle weakness 2014 Musculoskeletal No myalgias 09/14/2015 Neurologic No ataxia 09/14/2015 Neurologic No dizziness 09/14/2015 Neurologic No gait abnormality 2014 Neurologic memory loss 09/14/2015 Psychiatric No anxiety 09/14/2015 Psychiatric No depression 09/14/2015 Constitutional recent illness 10/21/2014 Constitutional No anorexia 10/21/2014 Constitutional No night sweats 2014 Constitutional No chills 10/21/2014 Constitutional No diaphoresis 10/21/2014 Constitutional No fatigue 10/21/2014 Constitutional No fever 10/21/2014 Constitutional No insomnia 10/21/2014 Constitutional No malaise 10/21/2014 Eyes No vision change 10/21/2014 Ears/Nose/Throat/Neck No dental pain Ears/Nose/Throat/Neck No dizziness 2014 Ears/Nose/Throat/Neck No facial pain Ears/Nose/Throat/Neck No headache 2014 Ears/Nose/Throat/Neck No hearing loss Ears/Nose/Throat/Neck No nasal allergies 10/21/2014 Ears/Nose/Throat/Neck No nasal discharge 10/21/2014 Ears/Nose/Throat/Neck No sinus congestion 10/21/2014 Cardiovascular No dyspnea 10/21/2014 Cardiovascular No fatigue 10/21/2014 Cardiovascular hypertension 10/21/2014 Respiratory No chest congestion 2014 Respiratory No chest tightness 2014 Respiratory No cough 10/21/2014 Gastrointestinal No abdominal pain 2014 Gastrointestinal No constipation 2014 Gastrointestinal No diarrhea 10/21/2014 Gastrointestinal No nausea 10/21/2014 Gastrointestinal No vomiting 10/21/2014 Genitourinary/Nephrology No dysuria 10/21 Genitourinary/Nephrology No urinary urgency 10/21/2014 Genitourinary/Nephrology No urinary frequency 10/21/2014 Musculoskeletal No stiffness 10/21/2014 Musculoskeletal No swelling 10/21/2014 Musculoskeletal No arthralgia(s) 2014 Musculoskeletal No back pain 10/21/2014 Musculoskeletal No bone pain 10/21/2014 Musculoskeletal No joint complaint 2014 Musculoskeletal No muscle weakness 2014 Musculoskeletal No myalgias 10/21/2014 Neurologic No ataxia 10/21/2014 Neurologic No dizziness 10/21/2014 Neurologic No gait abnormality 2014 Neurologic memory loss 10/21/2014 Psychiatric No anxiety 10/21/2014 Psychiatric No depression 10/21/2014 Constitutional No anorexia 10/11/2014 Constitutional No night sweats 2014 Constitutional No chills 10/11/2014 Constitutional No diaphoresis 10/11/2014 Constitutional No insomnia 10/11/2014 Constitutional No malaise 10/11/2014 Eyes No vision change 10/11/2014 Ears/Nose/Throat/Neck No dental pain 02/2015 Ears/Nose/Throat/Neck No dizziness 2014 Ears/Nose/Throat/Neck No facial pain 02/2015 Ears/Nose/Throat/Neck No headache 2014 Ears/Nose/Throat/Neck No hearing loss 02/2015 Ears/Nose/Throat/Neck No nasal allergies 10/11/2014 Ears/Nose/Throat/Neck No nasal discharge 10/11/2014 Ears/Nose/Throat/Neck No sinus congestion 10/11/2014 Cardiovascular No dyspnea 10/11/2014 Cardiovascular No fatigue 10/11/2014 Cardiovascular hypertension 10/11/2014 Respiratory chest congestion 10/11/2014 Respiratory No chest tightness 2014 Respiratory cough 10/11/2014 Gastrointestinal No abdominal pain 2014 Gastrointestinal No constipation 2014 Gastrointestinal No diarrhea 10/11/2014 Gastrointestinal No nausea 10/11/2014 Gastrointestinal No vomiting 10/11/2014 Genitourinary/Nephrology No dysuria 10/11 Genitourinary/Nephrology No urinary urgency 10/11/2014 Genitourinary/Nephrology No urinary frequency 10/11/2014 Musculoskeletal No stiffness 10/11/2014 Musculoskeletal No swelling 10/11/2014 Musculoskeletal No arthralgia(s) 2014 Musculoskeletal No back pain 10/11/2014 Musculoskeletal No bone pain 10/11/2014 Musculoskeletal No joint complaint 2014 Musculoskeletal No muscle weakness 2014 Musculoskeletal No myalgias 10/11/2014 Neurologic No ataxia 10/11/2014 Neurologic No dizziness 10/11/2014 Neurologic No gait abnormality 2014 Neurologic memory loss 10/11/2014 Psychiatric No anxiety 10/11/2014 Psychiatric No depression 10/11/2014 Dermatologic No rash 10/11/2014 Dermatologic No sores 10/11/2014 Constitutional No recent illness 2013 Constitutional No anorexia 07/28/2014 Constitutional No night sweats 2013 Constitutional No chills 07/28/2014 Constitutional No diaphoresis 07/28/2014 Constitutional No fatigue 07/28/2014 Constitutional No fever 07/28/2014 Constitutional No insomnia 07/28/2014 Constitutional No malaise 07/28/2014 Eyes No vision change 07/28/2014 Ears/Nose/Throat/Neck No dental pain Ears/Nose/Throat/Neck No dizziness 2013 Ears/Nose/Throat/Neck No facial pain Ears/Nose/Throat/Neck No headache 2013 Ears/Nose/Throat/Neck No hearing loss Ears/Nose/Throat/Neck No nasal allergies 07/28/2014 Ears/Nose/Throat/Neck No nasal discharge 07/28/2014 Ears/Nose/Throat/Neck No sinus congestion 07/28/2014 Respiratory No chest congestion 2013 Respiratory No chest tightness 2013 Respiratory No cough 07/28/2014 Gastrointestinal No abdominal pain 2013 Gastrointestinal No constipation 2013 Gastrointestinal No diarrhea 07/28/2014 Gastrointestinal No nausea 07/28/2014 Gastrointestinal No vomiting 07/28/2014 Genitourinary/Nephrology No dysuria 07/28 Genitourinary/Nephrology No urinary urgency 07/28/2014 Genitourinary/Nephrology No urinary frequency 07/28/2014 Musculoskeletal No stiffness 07/28/2014 Musculoskeletal No swelling 07/28/2014 Musculoskeletal No arthralgia(s) 2013 Musculoskeletal No back pain 07/28/2014 Musculoskeletal No bone pain 07/28/2014 Musculoskeletal No joint complaint 2013 Musculoskeletal No muscle weakness 2013 Musculoskeletal No myalgias 07/28/2014 Neurologic No ataxia 07/28/2014 Neurologic No dizziness 07/28/2014 Neurologic No gait abnormality 2013 Psychiatric No anxiety 07/28/2014 Psychiatric No depression 07/28/2014 Neurologic 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/2014 Cardiovascular hypertension 07/28/2014 Cardiovascular No fatigue 07/28/2014 Cardiovascular No dyspnea 07/28/2014 Constitutional No recent illness 2013 Constitutional No anorexia 01/27/2014 Constitutional No night sweats 2013 Constitutional No chills 01/27/2014 Constitutional No diaphoresis 01/27/2014 Constitutional No fatigue 01/27/2014 Constitutional No fever 01/27/2014 Constitutional No insomnia 01/27/2014 Constitutional No malaise 01/27/2014 Eyes No vision change 01/27/2014 Ears/Nose/Throat/Neck No dental pain Ears/Nose/Throat/Neck No dizziness 2013 Ears/Nose/Throat/Neck No facial pain Ears/Nose/Throat/Neck No headache 2013 Ears/Nose/Throat/Neck No hearing loss Ears/Nose/Throat/Neck No nasal allergies 01/27/2014 Ears/Nose/Throat/Neck No nasal discharge 01/27/2014 Ears/Nose/Throat/Neck No sinus congestion 01/27/2014 Respiratory No chest congestion 2013 Respiratory No chest tightness 2013 Respiratory No cough 01/27/2014 Gastrointestinal No abdominal pain 2013 Gastrointestinal No constipation 2013 Gastrointestinal No diarrhea 01/27/2014 Gastrointestinal No nausea 01/27/2014 Gastrointestinal No vomiting 01/27/2014 Genitourinary/Nephrology No dysuria 01/27 Genitourinary/Nephrology No urinary urgency 01/27/2014 Genitourinary/Nephrology No urinary frequency 01/27/2014 Musculoskeletal No stiffness 01/27/2014 Musculoskeletal No swelling 01/27/2014 Musculoskeletal No arthralgia(s) 2013 Musculoskeletal No back pain 01/27/2014 Musculoskeletal No bone pain 01/27/2014 Musculoskeletal No joint complaint 2013 Musculoskeletal No muscle weakness 2013 Musculoskeletal No myalgias 01/27/2014 Neurologic No ataxia 01/27/2014 Neurologic No dizziness 01/27/2014 Neurologic No gait abnormality 2013 Psychiatric No anxiety 01/27/2014 Psychiatric No depression 01/27/2014 Constitutional No recent illness 2013 Constitutional No night sweats 2013 Constitutional No chills 10/22/2013 Constitutional No anorexia 10/22/2013 Constitutional No fatigue 10/22/2013 Constitutional No diaphoresis 10/22/2013 Constitutional No fever 10/22/2013 Constitutional No insomnia 10/22/2013 Constitutional No malaise 10/22/2013 Constitutional No recent illness 2012 Constitutional No anorexia 08/24/2013 Constitutional No chills 08/24/2013 Constitutional No fatigue 08/24/2013 Constitutional No fever 08/24/2013 Constitutional No insomnia 08/24/2013 Eyes No vision change 08/24/2013 Ears/Nose/Throat/Neck No dental pain Ears/Nose/Throat/Neck No dizziness 2012 Ears/Nose/Throat/Neck No facial pain Ears/Nose/Throat/Neck No headache 2012 Ears/Nose/Throat/Neck No hearing loss Ears/Nose/Throat/Neck No nasal allergies 08/24/2013 Ears/Nose/Throat/Neck No nasal discharge 08/24/2013 Ears/Nose/Throat/Neck No sinus congestion 08/24/2013 Respiratory No chest congestion 2012 Respiratory No chest tightness 2012 Respiratory No cough 08/24/2013 Gastrointestinal No abdominal pain 2012 Gastrointestinal No anorexia 08/24/2013 Gastrointestinal No constipation 2012 Gastrointestinal No diarrhea 08/24/2013 Gastrointestinal No nausea 08/24/2013 Gastrointestinal No vomiting 08/24/2013 Genitourinary/Nephrology No dysuria 08/24 Genitourinary/Nephrology No urinary urgency 08/24/2013 Genitourinary/Nephrology No urinary frequency 08/24/2013 Musculoskeletal No stiffness 08/24/2013 Musculoskeletal No swelling 08/24/2013 Musculoskeletal No arthralgia(s) 2012 Musculoskeletal No back pain 08/24/2013 Musculoskeletal No bone pain 08/24/2013 Musculoskeletal No joint complaint 2012 Musculoskeletal No muscle weakness 2012 Musculoskeletal No myalgias 08/24/2013 Neurologic No ataxia 08/24/2013 Neurologic No dizziness 08/24/2013 Neurologic No gait abnormality 2012 Psychiatric No anxiety 08/24/2013 Psychiatric No depression 08/24/2013 Constitutional No recent illness 2012 Constitutional No anorexia 04/02/2013 Constitutional No night sweats 2012 Constitutional No chills 04/02/2013 Constitutional No diaphoresis 04/02/2013 Constitutional No fatigue 04/02/2013 Constitutional No fever 04/02/2013 Constitutional No insomnia 04/02/2013 Constitutional No malaise 04/02/2013 Cardiovascular No chest pain/pressure Cardiovascular No edema 04/02/2013 Respiratory No chest congestion 2012 Respiratory No chest tightness 2012 Respiratory No cough 04/02/2013 Neurologic No dizziness 04/02/2013 Neurologic No dyskinesia or tremor 2012 Psychiatric No anxiety 04/02/2013 Psychiatric No depression 04/02/2013 Constitutional No recent illness 2012 Constitutional No anorexia 03/31/2013 Constitutional No night sweats 2012 Constitutional No chills 03/31/2013 Constitutional No diaphoresis 03/31/2013 Constitutional No fatigue 03/31/2013 Constitutional No fever 03/31/2013 Constitutional No insomnia 03/31/2013 Constitutional No malaise 03/31/2013 Neurologic No dizziness 03/31/2013 Neurologic No dyskinesia or tremor 2012 Psychiatric No anxiety 03/31/2013 Psychiatric No depression 03/31/2013 Cardiovascular No chest pain/pressure Cardiovascular No edema 03/31/2013 Respiratory No cough 03/31/2013 Respiratory No chest tightness 2012 Respiratory No chest congestion 2012 Constitutional No recent illness 2012 Constitutional No anorexia 12/18/2012 Constitutional No night sweats 2012 Constitutional No chills 12/18/2012 Constitutional No diaphoresis 12/18/2012 Constitutional No fatigue 12/18/2012 Constitutional No fever 12/18/2012 Constitutional No insomnia 12/18/2012 Constitutional No malaise 12/18/2012 Ears/Nose/Throat/Neck No dizziness 2012 Ears/Nose/Throat/Neck No nasal allergies 12/18/2012 Ears/Nose/Throat/Neck No nasal discharge 12/18/2012 Cardiovascular No chest pain/pressure Respiratory No productive sputum 2012 Respiratory No chest congestion 2012 Respiratory No cough 12/18/2012 Gastrointestinal No vomiting 12/18/2012 Gastrointestinal No nausea 12/18/2012 Gastrointestinal No abdominal pain 2012 Gastrointestinal No constipation 2012 Gastrointestinal No diarrhea 12/18/2012 Constitutional No recent illness 2012 Constitutional No anorexia 10/20/2012 Constitutional No chills 10/20/2012 Constitutional No night sweats 2012 Constitutional No diaphoresis 10/20/2012 Constitutional No fatigue 10/20/2012 Constitutional No fever 10/20/2012 Constitutional No insomnia 10/20/2012 Constitutional No malaise 10/20/2012 Constitutional No recent illness 2012 Constitutional No anorexia 10/16/2012 Constitutional No night sweats 2012 Constitutional No chills 10/16/2012 Constitutional No diaphoresis 10/16/2012 Constitutional No fatigue 10/16/2012 Constitutional No fever 10/16/2012 Constitutional No insomnia 10/16/2012 Constitutional No malaise 10/16/2012 Eyes No eye discharge 10/16/2012 Eyes No eye erythema 10/16/2012 Ears/Nose/Throat/Neck No dizziness 2012 Ears/Nose/Throat/Neck No headache 2012 Ears/Nose/Throat/Neck No nasal discharge 10/16/2012 Cardiovascular No chest pain/pressure 07/2013 Cardiovascular No dyspnea 10/16/2012 Cardiovascular No edema 10/16/2012 Respiratory No productive sputum 2012 Respiratory No cough 10/16/2012 Gastrointestinal No abdominal pain 2012 Gastrointestinal No nausea 10/16/2012 Gastrointestinal No vomiting 10/16/2012 Genitourinary/Nephrology No dysuria 10/16 Musculoskeletal No stiffness 10/16/2012 Musculoskeletal No swelling 10/16/2012 Musculoskeletal No muscle weakness 2012 Musculoskeletal No myalgias 10/16/2012 Neurologic No neck pain 10/16/2012 Neurologic No syncope 10/16/2012 Psychiatric No anxiety 10/16/2012 Psychiatric No depression 10/16/2012 Constitutional No recent illness 2011 Constitutional No anorexia 08/13/2012 Constitutional No night sweats 2011 Constitutional No chills 08/13/2012 Constitutional No diaphoresis 08/13/2012 Constitutional No fatigue 08/13/2012 Constitutional No fever 08/13/2012 Constitutional No insomnia 08/13/2012 Constitutional No malaise 08/13/2012 Eyes No eye discharge 08/13/2012 Eyes No eye erythema 08/13/2012 Ears/Nose/Throat/Neck No dizziness 2011 Ears/Nose/Throat/Neck No nasal discharge 08/13/2012 Ears/Nose/Throat/Neck No headache 2011 Cardiovascular No chest pain/pressure 04/2012 Cardiovascular No dyspnea 08/13/2012 Cardiovascular No edema 08/13/2012 Respiratory No productive sputum 2011 Respiratory No cough 08/13/2012 Gastrointestinal No abdominal pain 2011 Gastrointestinal No vomiting 08/13/2012 Gastrointestinal No nausea 08/13/2012 Genitourinary/Nephrology No dysuria 08/13 Musculoskeletal No stiffness 08/13/2012 Musculoskeletal No swelling 08/13/2012 Musculoskeletal No muscle weakness 2011 Musculoskeletal No myalgias 08/13/2012 Neurologic No neck pain 08/13/2012 Neurologic No syncope 08/13/2012 Psychiatric No anxiety 08/13/2012 Psychiatric No depression 08/13/2012 Constitutional No recent illness 2011 Constitutional No night sweats 2011 Constitutional No chills 07/29/2012 Constitutional No fatigue 07/29/2012 Constitutional No fever 07/29/2012 Eyes No eye discharge 07/29/2012 Eyes No eye erythema 07/29/2012 Ears/Nose/Throat/Neck No dizziness 2011 Cardiovascular No chest pain/pressure Respiratory No productive sputum 2011 Respiratory No cough 07/29/2012 Musculoskeletal No stiffness 07/29/2012 Musculoskeletal No swelling 07/29/2012 Musculoskeletal No muscle weakness 2011 Musculoskeletal No myalgias 07/29/2012 Neurologic No dizziness 07/29/2012 Neurologic No headache 07/29/2012 Neurologic No neck pain 07/29/2012 Neurologic No syncope 07/29/2012 Psychiatric No anxiety 07/29/2012 Psychiatric No depression 07/29/2012 Constitutional No recent illness 2011 Constitutional No night sweats 2011 Constitutional No chills 07/17/2012 Constitutional No fatigue 07/17/2012 Constitutional No fever 07/17/2012 Eyes No eye discharge 07/17/2012 Eyes No eye erythema 07/17/2012 Ears/Nose/Throat/Neck No dizziness 2011 Cardiovascular No chest pain/pressure 08/2012 Respiratory No productive sputum 2011 Respiratory No cough 07/17/2012 Musculoskeletal No stiffness 07/17/2012 Musculoskeletal No swelling 07/17/2012 Musculoskeletal No muscle weakness 2011 Musculoskeletal No myalgias 07/17/2012 Neurologic No dizziness 07/17/2012 Neurologic No headache 07/17/2012 Neurologic No neck pain 07/17/2012 Neurologic No syncope 07/17/2012 Psychiatric No anxiety 07/17/2012 Psychiatric No depression 07/17/2012 Constitutional No recent illness 2011 Constitutional No night sweats 2011 Constitutional No chills 07/07/2012 Constitutional No fatigue 07/07/2012 Constitutional No fever 07/07/2012 Eyes No eye discharge 07/07/2012 Eyes No eye erythema 07/07/2012 Ears/Nose/Throat/Neck No dizziness 2011 Cardiovascular No chest pain/pressure 10/2011 Respiratory No productive sputum 2011 Respiratory No cough 07/07/2012 Musculoskeletal No stiffness 07/07/2012 Musculoskeletal No swelling 07/07/2012 Musculoskeletal No muscle weakness 2011 Musculoskeletal No myalgias 07/07/2012 Psychiatric No anxiety 07/07/2012 Psychiatric No depression 07/07/2012 Neurologic No dizziness 07/07/2012 Neurologic No headache 07/07/2012 Neurologic No neck pain 07/07/2012 Neurologic No syncope 07/07/2012 Constitutional No recent illness 2011 Constitutional No anorexia 06/26/2012 Constitutional No night sweats 2011 Constitutional No chills 06/26/2012 Constitutional No diaphoresis 06/26/2012 Constitutional No fatigue 06/26/2012 Constitutional No fever 06/26/2012 Constitutional No insomnia 06/26/2012 Constitutional No malaise 06/26/2012 Eyes No eye discharge 06/26/2012 Eyes No eye erythema 06/26/2012 Ears/Nose/Throat/Neck No dizziness 2011 Cardiovascular No chest pain/pressure Respiratory No productive sputum 2011 Respiratory No cough 06/26/2012 Constitutional No recent illness 2011 Constitutional No anorexia 06/17/2012 Constitutional No night sweats 2011 Constitutional No chills 06/17/2012 Constitutional No diaphoresis 06/17/2012 Constitutional No fatigue 06/17/2012 Constitutional No fever 06/17/2012 Constitutional No insomnia 06/17/2012 Constitutional No malaise 06/17/2012 Cardiovascular No chest pain/pressure 08/2012 Respiratory No productive sputum 2011 Respiratory No cough 06/17/2012 Ears/Nose/Throat/Neck No dizziness 2011 Eyes No eye erythema 06/17/2012 Eyes No eye discharge 06/17/2012 Constitutional No recent illness 2011 Constitutional No night sweats 2011 Constitutional No anorexia 06/06/2012 Constitutional No chills 06/06/2012 Constitutional No diaphoresis 06/06/2012 Constitutional No fatigue 06/06/2012 Constitutional No fever 06/06/2012 Cardiovascular No chest pain/pressure Respiratory No productive sputum 2011 Respiratory No chest congestion 2011 Respiratory No cough 06/06/2012 Constitutional No anorexia 05/20/2012 Constitutional No chills 05/20/2012 Constitutional No fatigue 05/20/2012 Constitutional No fever 05/20/2012 Constitutional No insomnia 05/20/2012 Eyes No vision change 05/20/2012 Ears/Nose/Throat/Neck No dental pain Ears/Nose/Throat/Neck No dizziness 2011 Ears/Nose/Throat/Neck No facial pain Ears/Nose/Throat/Neck No headache 2011 Respiratory No chest congestion 2011 Respiratory No chest tightness 2011 Respiratory No cough 05/20/2012 Gastrointestinal No abdominal pain 2011 Gastrointestinal No anorexia 05/20/2012 Gastrointestinal No constipation 2011 Gastrointestinal No diarrhea 05/20/2012 Gastrointestinal No nausea 05/20/2012 Gastrointestinal No vomiting 05/20/2012 Genitourinary/Nephrology No urinary urgency 05/20/2012 Genitourinary/Nephrology No urinary frequency 05/20/2012 Musculoskeletal No stiffness 05/20/2012 Musculoskeletal No swelling 05/20/2012 Musculoskeletal No arthralgia(s) 2011 Musculoskeletal No back pain 05/20/2012 Musculoskeletal No joint complaint 2011 Neurologic No ataxia 05/20/2012 Neurologic No dizziness 05/20/2012 Psychiatric No anxiety 05/20/2012 Psychiatric No depression 05/20/2012 Constitutional No recent illness 2011 Constitutional No anorexia 05/06/2012 Constitutional No chills 05/06/2012 Constitutional No fatigue 05/06/2012 Constitutional No fever 05/06/2012 Constitutional No insomnia 05/06/2012 Respiratory No chest congestion 2011 Respiratory No chest tightness 2011 Respiratory No cough 05/06/2012 Gastrointestinal No abdominal pain 2011 Gastrointestinal No anorexia 05/06/2012 Gastrointestinal No constipation 2011 Gastrointestinal No diarrhea 05/06/2012 Gastrointestinal No nausea 05/06/2012 Gastrointestinal No vomiting 05/06/2012 Musculoskeletal No stiffness 05/06/2012 Musculoskeletal No swelling 05/06/2012 Musculoskeletal No arthralgia(s) 2011 Musculoskeletal No back pain 05/06/2012 Musculoskeletal No bone pain 05/06/2012 Musculoskeletal No joint complaint 2011 Musculoskeletal No muscle weakness 2011 Musculoskeletal No myalgias 05/06/2012 Neurologic No ataxia 05/06/2012 Neurologic No dizziness 05/06/2012 Neurologic No gait abnormality 2011 Psychiatric No anxiety 05/06/2012 Psychiatric No depression 05/06/2012 Constitutional No recent illness 2011 Constitutional No fatigue 04/21/2012 Constitutional No chills 04/21/2012 Ears/Nose/Throat/Neck No dizziness 2011 Ears/Nose/Throat/Neck No nasal discharge 04/21/2012 Ears/Nose/Throat/Neck No nasal allergies 04/21/2012 Ears/Nose/Throat/Neck No hearing loss Ears/Nose/Throat/Neck No sinus congestion 04/21/2012 Respiratory No cough 04/21/2012 Respiratory No chest tightness 2011 Respiratory No chest congestion 2011 Gastrointestinal No abdominal pain 2011 Gastrointestinal No vomiting 04/21/2012 Gastrointestinal No nausea 04/21/2012 Gastrointestinal No diarrhea 04/21/2012 Gastrointestinal No constipation 2011 Genitourinary/Nephrology No dysuria 04/21 Genitourinary/Nephrology No urinary urgency 04/21/2012 Genitourinary/Nephrology No urinary frequency 04/21/2012 Musculoskeletal No stiffness 04/21/2012 Musculoskeletal No bone pain 04/21/2012 Musculoskeletal No joint complaint 2011 Musculoskeletal No muscle weakness 2011 Musculoskeletal No myalgias 04/21/2012 Neurologic No gait abnormality 2011 Neurologic No dizziness 04/21/2012 Psychiatric No anxiety 04/21/2012 Psychiatric No depression 04/21/2012 Constitutional No anorexia 04/21/2012 Constitutional No fever 04/21/2012 Constitutional No insomnia 04/21/2012 Eyes No vision change 04/21/2012 Ears/Nose/Throat/Neck No dental pain Ears/Nose/Throat/Neck No facial pain Ears/Nose/Throat/Neck No headache 2011 Gastrointestinal No anorexia 04/21/2012 Musculoskeletal No swelling 04/21/2012 Musculoskeletal No arthralgia(s) 2011 Musculoskeletal No back pain 04/21/2012 Neurologic No ataxia 04/21/2012 Constitutional No anorexia 04/07/2012 Constitutional No chills 04/07/2012 Constitutional No fatigue 04/07/2012 Constitutional No fever 04/07/2012 Eyes No vision change 04/07/2012 Ears/Nose/Throat/Neck No dizziness 2011 Ears/Nose/Throat/Neck No facial pain 11/2011 Ears/Nose/Throat/Neck No headache 2011 Respiratory No chest congestion 2011 Respiratory No chest tightness 2011 Respiratory No cough 04/07/2012 Gastrointestinal No anorexia 04/07/2012 Gastrointestinal No constipation 2011 Gastrointestinal No diarrhea 04/07/2012 Genitourinary/Nephrology No urinary urgency 04/07/2012 Genitourinary/Nephrology No urinary frequency 04/07/2012 Musculoskeletal No swelling 04/07/2012 Musculoskeletal No arthralgia(s) 2011 Neurologic No ataxia 04/07/2012 Neurologic No dizziness 04/07/2012 Psychiatric No anxiety 04/07/2012 Psychiatric No depression 04/07/2012 Constitutional No insomnia 04/07/2012 Ears/Nose/Throat/Neck No dental pain 11/2011 Gastrointestinal No abdominal pain 2011 Gastrointestinal No nausea 04/07/2012 Gastrointestinal No vomiting 04/07/2012 Musculoskeletal No stiffness 04/07/2012 Musculoskeletal No back pain 04/07/2012 Musculoskeletal No joint complaint 2011 Constitutional No anorexia 03/27/2012 Constitutional No chills 03/27/2012 Constitutional No fatigue 03/27/2012 Constitutional No fever 03/27/2012 Constitutional No insomnia 03/27/2012 Eyes No vision change 03/27/2012 Ears/Nose/Throat/Neck No dental pain Ears/Nose/Throat/Neck No dizziness 2011 Ears/Nose/Throat/Neck No facial pain Ears/Nose/Throat/Neck No headache 2011 Respiratory No chest congestion 2011 Respiratory No chest tightness 2011 Respiratory No cough 03/27/2012 Gastrointestinal No abdominal pain 2011 Gastrointestinal No anorexia 03/27/2012 Gastrointestinal No constipation 2011 Gastrointestinal No diarrhea 03/27/2012 Gastrointestinal No nausea 03/27/2012 Gastrointestinal No vomiting 03/27/2012 Genitourinary/Nephrology No urinary urgency 03/27/2012 Genitourinary/Nephrology No urinary frequency 03/27/2012 Musculoskeletal No stiffness 03/27/2012 Musculoskeletal No swelling 03/27/2012 Musculoskeletal No arthralgia(s) 2011 Musculoskeletal No back pain 03/27/2012 Musculoskeletal No joint complaint 2011 Neurologic No ataxia 03/27/2012 Neurologic No dizziness 03/27/2012 Psychiatric No anxiety 03/27/2012 Psychiatric No depression 03/27/2012 Constitutional No fever 11/22/2011 Constitutional No chills 11/22/2011 Constitutional No insomnia 11/22/2011 Constitutional No anorexia 11/22/2011 Ears/Nose/Throat/Neck No facial pain Ears/Nose/Throat/Neck No dental pain Cardiovascular No chest pain/pressure Cardiovascular No dyspnea 11/22/2011 Cardiovascular No edema 11/22/2011 Cardiovascular No palpitations 2011 Respiratory No cough 11/22/2011 Respiratory No chest congestion 2011 Respiratory No chest tightness 2011 Gastrointestinal No nausea 11/22/2011 Gastrointestinal No vomiting 11/22/2011 Gastrointestinal No constipation 2011 Gastrointestinal No diarrhea 11/22/2011 Gastrointestinal No abdominal pain 2011 Genitourinary/Nephrology No urinary urgency 11/22/2011 Genitourinary/Nephrology No urinary frequency 11/22/2011 Musculoskeletal No stiffness 11/22/2011 Musculoskeletal No swelling 11/22/2011 Musculoskeletal No back pain 11/22/2011 Musculoskeletal No joint complaint 2011 Constitutional No anorexia 09/06/2011 Constitutional No chills 09/06/2011 Constitutional No fatigue 09/06/2011 Constitutional No fever 09/06/2011 Eyes No vision change 09/06/2011 Ears/Nose/Throat/Neck No dizziness 2010 Ears/Nose/Throat/Neck No facial pain 10/2010 Ears/Nose/Throat/Neck No headache 2010 Respiratory No chest congestion 2010 Respiratory No chest tightness 2010 Respiratory No cough 09/06/2011 Gastrointestinal No anorexia 09/06/2011 Gastrointestinal No constipation 2010 Gastrointestinal No diarrhea 09/06/2011 Genitourinary/Nephrology No urinary urgency 09/06/2011 Genitourinary/Nephrology No urinary frequency 09/06/2011 Musculoskeletal No swelling 09/06/2011 Musculoskeletal No arthralgia(s) 2010 Neurologic No ataxia 09/06/2011 Neurologic No dizziness 09/06/2011 Psychiatric No anxiety 09/06/2011 Psychiatric No depression 09/06/2011 Constitutional No recent illness 2010 Ears/Nose/Throat/Neck No dizziness 2010 Gastrointestinal No nausea 08/28/2011 Gastrointestinal No vomiting 08/28/2011 Gastrointestinal No constipation 2010 Gastrointestinal No diarrhea 08/28/2011 Constitutional No chills 08/28/2011 Constitutional No fatigue 08/28/2011 Constitutional No fever 08/28/2011 Eyes No eye discharge 08/28/2011 Eyes No eye erythema 08/28/2011 Ears/Nose/Throat/Neck No nasal allergies 08/28/2011 Ears/Nose/Throat/Neck No sinus congestion 08/28/2011 Cardiovascular No chest pain/pressure Respiratory No productive sputum 2010 Respiratory No cough 08/28/2011 Respiratory No chest congestion 2010 Gastrointestinal No abdominal pain 2010 Genitourinary/Nephrology dysuria 2010 Genitourinary/Nephrology urinary urgency 08/28/2011 Genitourinary/Nephrology urinary frequency 08/28/2011 Dermatologic No rash 08/28/2011 Constitutional No recent illness 2010 Constitutional No chills 07/20/2011 Constitutional No fever 07/20/2011 Genitourinary/Nephrology dysuria 2010 Genitourinary/Nephrology No hematuria Genitourinary/Nephrology No flank pain Genitourinary/Nephrology urinary urgency 07/20/2011 Genitourinary/Nephrology urinary frequency 07/20/2011 Genitourinary/Nephrology No urinary incontinence 07/20/2011 Genitourinary/Nephrology No urinary retention/hesitancy 07/20/2011 Genitourinary/Nephrology No vaginal discharge 07/20/2011 Gastrointestinal No abdominal pain 2010 Gastrointestinal No diarrhea 07/20/2011 Gastrointestinal No constipation 2010 Gastrointestinal No nausea 07/20/2011 Gastrointestinal No vomiting 07/20/2011 Cardiovascular No chest pain/pressure Respiratory No cough 07/20/2011 Respiratory No chest congestion 2010 Constitutional No fever 07/06/2011 Constitutional No recent illness 2010 Constitutional No chills 07/06/2011 Eyes No eye discharge 07/06/2011 Eyes No eye erythema 07/06/2011 Ears/Nose/Throat/Neck No dysphagia 2010 Ears/Nose/Throat/Neck No nasal allergies 07/06/2011 Ears/Nose/Throat/Neck No nasal discharge 07/06/2011 Ears/Nose/Throat/Neck No sinus congestion 07/06/2011 Cardiovascular No dyspnea 07/06/2011 Cardiovascular No chest pain/pressure Respiratory cough 07/06/2011 Gastrointestinal No nausea 07/06/2011 Gastrointestinal No vomiting 07/06/2011 Gastrointestinal No diarrhea 07/06/2011 Gastrointestinal No abdominal pain 2010 Constitutional No anorexia 06/25/2011 Constitutional No chills 06/25/2011 Constitutional No fatigue 06/25/2011 Constitutional No fever 06/25/2011 Eyes No vision change 06/25/2011 Ears/Nose/Throat/Neck No dizziness 2010 Ears/Nose/Throat/Neck No facial pain Ears/Nose/Throat/Neck No headache 2010 Respiratory No cough 06/25/2011 Respiratory No chest tightness 2010 Respiratory No chest congestion 2010 Gastrointestinal No anorexia 06/25/2011 Gastrointestinal No constipation 2010 Gastrointestinal No diarrhea 06/25/2011 Genitourinary/Nephrology No urinary urgency 06/25/2011 Genitourinary/Nephrology No urinary frequency 06/25/2011 Musculoskeletal No swelling 06/25/2011 Musculoskeletal No arthralgia(s) 2010 Neurologic No ataxia 06/25/2011 Neurologic No dizziness 06/25/2011 Psychiatric No anxiety 06/25/2011 Psychiatric No depression 06/25/2011 Physical Exam Exam Name System Name Item Name Status Result Effective Dates Notes Full Exam - General 1994 Constitutional general appearance Overall: well developed 09/13/2017 None Full Exam - General 1994 Constitutional general appearance Overall: in no acute distress 09/13/2017 None Full Exam - General 1994 Constitutional general appearance Overall: well nourished 09/13/2017 None Full Exam - General 1994 Eyes conjunctiva /eyelids Overall: conjunctiva clear 09/13/2017 None Full Exam - General 1994 Eyes conjunctiva /eyelids Overall: cornea clear 09/13/2017 None Full Exam - General 1994 Eyes conjunctiva /eyelids Overall: eyelids normal 09/13/2017 None Full Exam - General 1994 Eyes pupils and irises Overall: pupils equal, round, reactive to light and accomodation 09/13/2017 None Full Exam - General 1994 Ears/Nose/Throat otoscopic exam Overall: external auditory canals clear 09/13/2017 None Full Exam - General 1994 Ears/Nose/Throat otoscopic exam Overall: tympanic membranes clear 09/13/2017 None Full Exam - General 1994 Ears/Nose/Throat oral cavity/pharynx/larynx Overall: oral mucosa clear 09/13/2017 None Full Exam - General 1994 Ears/Nose/Throat oral cavity/pharynx/larynx Overall: oropharyngeal mucosa clear 09/13/2017 None Full Exam - General 1994 Respiratory auscultation Overall: breath sounds clear bilaterally 09/13/2017 None Full Exam - General 1994 Respiratory respiratory effort/rhythm Overall: no retractions 09/13/2017 None Full Exam - General 1994 Respiratory respiratory effort/rhythm Overall: normal rate 09/13/2017 None Full Exam - General 1994 Cardiovascular extremities Edema present: pitting 09/13/2017 None Full Exam - General 1994 Cardiovascular extremities Edema present: severity 1+ - 4 +: 1+ 09/13/2017 None Full Exam - General 1994 Cardiovascular auscultation of heart Overall: regular rate 09/13/2017 None Full Exam - General 1994 Cardiovascular auscultation of heart Overall: normal heart sounds 09/13/2017 None Full Exam - General 1994 Cardiovascular auscultation of heart Systolic murmur: holosystolic 09/13/2017 None Full Exam - General 1994 Cardiovascular auscultation of heart Systolic murmur grade: III/ 09/13/2017 None Full Exam - General 1994 Musculoskeletal head and neck Overall: head atraumatic 09/13/2017 None Full Exam - General 1994 Musculoskeletal head and neck Overall: TMJ benign 09/13/2017 None Full Exam - General 1994 Musculoskeletal head and neck Overall: cervical spine benign 09/13/2017 None Full Exam - General 1994 Neurologic cranial nerves Overall: crainial nerves 2 - 12 grossly intact 09/13/2017 None Full Exam - General 1994 Psychiatric orientation/consciousness Overall: oriented to person, place and time 09/13/2017 None Full Exam - General 1994 Integument inspection of skin Location: left foot 09/13/2017 dressing with walking boot in place Full Exam - General 1994 Constitutional general appearance Assistive Device: walker 09/13/2017 None Full Exam - General 1994 Constitutional general appearance Overall: well developed 07/09/2017 None Full Exam - General 1994 Constitutional general appearance Overall: in no acute distress 07/09/2017 None Full Exam - General 1994 Constitutional general appearance Overall: well nourished 07/09/2017 None Full Exam - General 1994 Eyes conjunctiva /eyelids Overall: conjunctiva clear 07/09/2017 None Full Exam - General 1994 Eyes conjunctiva /eyelids Overall: cornea clear 07/09/2017 None Full Exam - General 1994 Eyes conjunctiva /eyelids Overall: eyelids normal 07/09/2017 None Full Exam - General 1994 Eyes conjunctiva /eyelids Orbit: exophthalmos 07/09/2017 None Full Exam - General 1994 Eyes pupils and irises Overall: pupils equal, round, reactive to light and accomodation 07/09/2017 None Full Exam - General 1994 Ears/Nose/Throat otoscopic exam Overall: external auditory canals clear 07/09/2017 None Full Exam - General 1994 Ears/Nose/Throat otoscopic exam Overall: tympanic membranes clear 07/09/2017 None Full Exam - General 1994 Ears/Nose/Throat oral cavity/pharynx/larynx Overall: oral mucosa clear 07/09/2017 None Full Exam - General 1994 Ears/Nose/Throat oral cavity/pharynx/larynx Overall: oropharyngeal mucosa clear 07/09/2017 None Full Exam - General 1994 Respiratory auscultation Overall: breath sounds clear bilaterally 07/09/2017 None Full Exam - General 1994 Respiratory respiratory effort/rhythm Overall: no retractions 07/09/2017 None Full Exam - General 1994 Respiratory respiratory effort/rhythm Overall: normal rate 07/09/2017 None Full Exam - General 1994 Cardiovascular auscultation of heart Overall: regular rate 07/09/2017 None Full Exam - General 1994 Cardiovascular auscultation of heart Overall: normal heart sounds 07/09/2017 None Full Exam - General 1994 Cardiovascular auscultation of heart Systolic murmur: holosystolic 07/09/2017 None Full Exam - General 1994 Cardiovascular auscultation of heart Systolic murmur grade: III/ 07/09/2017 None Full Exam - General 1994 Musculoskeletal head and neck Overall: head atraumatic 07/09/2017 None Full Exam - General 1994 Musculoskeletal head and neck Overall: TMJ benign 07/09/2017 None Full Exam - General 1994 Musculoskeletal head and neck Overall: cervical spine benign 07/09/2017 None Full Exam - General 1994 Integument inspection of skin Location: right foot 07/09/2017 dressing with walking boot in place Full Exam - General 1994 Neurologic cranial nerves Overall: crainial nerves 2 - 12 grossly intact 07/09/2017 None Full Exam - General 1994 Psychiatric orientation/consciousness Overall: oriented to person, place and time 07/09/2017 None Full Exam - General 1994 Cardiovascular extremities Edema present: pitting 07/09/2017 None Full Exam - General 1994 Cardiovascular extremities Edema present: severity 1+ - 4 +: 1+ 07/09/2017 None Full Exam - General 1994 Constitutional general appearance Overall: well developed 05/17/2017 None Full Exam - General 1994 Constitutional general appearance Overall: in no acute distress 05/17/2017 None Full Exam - General 1994 Constitutional general appearance Overall: well nourished 05/17/2017 None Full Exam - General 1994 Eyes conjunctiva /eyelids Overall: conjunctiva clear 05/17/2017 None Full Exam - General 1994 Eyes conjunctiva /eyelids Overall: cornea clear 05/17/2017 None Full Exam - General 1994 Eyes conjunctiva /eyelids Overall: eyelids normal 05/17/2017 None Full Exam - General 1994 Eyes conjunctiva /eyelids Orbit: exophthalmos 05/17/2017 None Full Exam - General 1994 Eyes pupils and irises Overall: pupils equal, round, reactive to light and accomodation 05/17/2017 None Full Exam - General 1994 Ears/Nose/Throat otoscopic exam Overall: external auditory canals clear 05/17/2017 None Full Exam - General 1994 Ears/Nose/Throat otoscopic exam Overall: tympanic membranes clear 05/17/2017 None Full Exam - General 1994 Ears/Nose/Throat oral cavity/pharynx/larynx Overall: oral mucosa clear 05/17/2017 None Full Exam - General 1994 Ears/Nose/Throat oral cavity/pharynx/larynx Overall: oropharyngeal mucosa clear 05/17/2017 None Full Exam - General 1994 Respiratory auscultation Overall: breath sounds clear bilaterally 05/17/2017 None Full Exam - General 1994 Respiratory respiratory effort/rhythm Overall: no retractions 05/17/2017 None Full Exam - General 1994 Respiratory respiratory effort/rhythm Overall: normal rate 05/17/2017 None Full Exam - General 1994 Cardiovascular auscultation of heart Overall: regular rate 05/17/2017 None Full Exam - General 1994 Cardiovascular auscultation of heart Overall: normal heart sounds 05/17/2017 None Full Exam - General 1994 Cardiovascular auscultation of heart Systolic murmur: holosystolic 05/17/2017 None Full Exam - General 1994 Cardiovascular auscultation of heart Systolic murmur grade: III/ 05/17/2017 None Full Exam - General 1994 Musculoskeletal head and neck Overall: head atraumatic 05/17/2017 None Full Exam - General 1994 Musculoskeletal head and neck Overall: TMJ benign 05/17/2017 None Full Exam - General 1994 Musculoskeletal head and neck Overall: cervical spine benign 05/17/2017 None Full Exam - General 1994 Neurologic cranial nerves Overall: crainial nerves 2 - 12 grossly intact 05/17/2017 None Full Exam - General 1994 Psychiatric orientation/consciousness Overall: oriented to person, place and time 05/17/2017 None Full Exam - General 1994 Constitutional general appearance Overall: well developed 04/23/2017 None Full Exam - General 1994 Constitutional general appearance Overall: in no acute distress 04/23/2017 None Full Exam - General 1994 Constitutional general appearance Overall: well nourished 04/23/2017 None Full Exam - General 1994 Eyes conjunctiva /eyelids Overall: conjunctiva clear 04/23/2017 None Full Exam - General 1994 Eyes conjunctiva /eyelids Overall: cornea clear 04/23/2017 None Full Exam - General 1994 Eyes conjunctiva /eyelids Overall: eyelids normal 04/23/2017 None Full Exam - General 1994 Eyes conjunctiva /eyelids Orbit: exophthalmos 04/23/2017 None Full Exam - General 1994 Eyes pupils and irises Overall: pupils equal, round, reactive to light and accomodation 04/23/2017 None Full Exam - General 1994 Ears/Nose/Throat otoscopic exam Overall: external auditory canals clear 04/23/2017 None Full Exam - General 1994 Ears/Nose/Throat otoscopic exam Overall: tympanic membranes clear 04/23/2017 None Full Exam - General 1994 Ears/Nose/Throat oral cavity/pharynx/larynx Overall: oral mucosa clear 04/23/2017 None Full Exam - General 1994 Ears/Nose/Throat oral cavity/pharynx/larynx Overall: oropharyngeal mucosa clear 04/23/2017 None Full Exam - General 1994 Respiratory auscultation Overall: breath sounds clear bilaterally 04/23/2017 None Full Exam - General 1994 Respiratory respiratory effort/rhythm Overall: no retractions 04/23/2017 None Full Exam - General 1994 Respiratory respiratory effort/rhythm Overall: normal rate 04/23/2017 None Full Exam - General 1994 Cardiovascular auscultation of heart Overall: regular rate 04/23/2017 None Full Exam - General 1994 Cardiovascular auscultation of heart Overall: normal heart sounds 04/23/2017 None Full Exam - General 1994 Cardiovascular auscultation of heart Systolic murmur: holosystolic 04/23/2017 None Full Exam - General 1994 Cardiovascular auscultation of heart Systolic murmur grade: III/ 04/23/2017 None Full Exam - General 1994 Musculoskeletal head and neck Overall: head atraumatic 04/23/2017 None Full Exam - General 1994 Musculoskeletal head and neck Overall: TMJ benign 04/23/2017 None Full Exam - General 1994 Musculoskeletal head and neck Overall: cervical spine benign 04/23/2017 None Full Exam - General 1994 Integument inspection of skin Location: right foot 04/23/2017 plantar surface of right foot below digit #2 Full Exam - General 1994 Neurologic cranial nerves Overall: crainial nerves 2 - 12 grossly intact 04/23/2017 None Full Exam - General 1994 Psychiatric orientation/consciousness Overall: oriented to person, place and time 04/23/2017 None Full Exam - General 1994 Constitutional general appearance Overall: well developed 03/26/2017 None Full Exam - General 1994 Constitutional general appearance Overall: in no acute distress 03/26/2017 None Full Exam - General 1994 Constitutional general appearance Overall: well nourished 03/26/2017 None Full Exam - General 1994 Eyes conjunctiva /eyelids Overall: conjunctiva clear 03/26/2017 None Full Exam - General 1994 Eyes conjunctiva /eyelids Overall: cornea clear 03/26/2017 None Full Exam - General 1994 Eyes conjunctiva /eyelids Overall: eyelids normal 03/26/2017 None Full Exam - General 1994 Eyes conjunctiva /eyelids Orbit: exophthalmos 03/26/2017 None Full Exam - General 1994 Eyes pupils and irises Overall: pupils equal, round, reactive to light and accomodation 03/26/2017 None Full Exam - General 1994 Ears/Nose/Throat otoscopic exam Overall: external auditory canals clear 03/26/2017 None Full Exam - General 1994 Ears/Nose/Throat otoscopic exam Overall: tympanic membranes clear 03/26/2017 None Full Exam - General 1994 Ears/Nose/Throat lips/teeth/gingiva Overall: benign lips 03/26/2017 None Full Exam - General 1994 Ears/Nose/Throat lips/teeth/gingiva Overall: no masses 03/26/2017 None Full Exam - General 1994 Ears/Nose/Throat oral cavity/pharynx/larynx Overall: oral mucosa clear 03/26/2017 None Full Exam - General 1994 Ears/Nose/Throat oral cavity/pharynx/larynx Overall: oropharyngeal mucosa clear 03/26/2017 None Full Exam - General 1994 Respiratory auscultation Overall: breath sounds clear bilaterally 03/26/2017 None Full Exam - General 1994 Respiratory respiratory effort/rhythm Overall: no retractions 03/26/2017 None Full Exam - General 1994 Respiratory respiratory effort/rhythm Overall: normal rate 03/26/2017 None Full Exam - General 1994 Cardiovascular auscultation of heart Overall: regular rate 03/26/2017 None Full Exam - General 1994 Cardiovascular auscultation of heart Overall: normal heart sounds 03/26/2017 None Full Exam - General 1994 Cardiovascular auscultation of heart Systolic murmur: holosystolic 03/26/2017 None Full Exam - General 1994 Cardiovascular auscultation of heart Systolic murmur grade: III/ 03/26/2017 None Full Exam - General 1994 Abdomen abdominal exam Overall: no tenderness 03/26/2017 None Full Exam - General 1994 Abdomen abdominal exam Overall: normal bowel sounds 03/26/2017 None Full Exam - General 1994 Musculoskeletal digits and nails Overall: no clubbing 03/26/2017 None Full Exam - General 1994 Musculoskeletal digits and nails Overall: digits benign 03/26/2017 None Full Exam - General 1994 Musculoskeletal spine, ribs and pelvis Posture: kyphoscoliosis 03/26/2017 None Full Exam - General 1994 Musculoskeletal gait and station Overall: normal gait 03/26/2017 None Full Exam - General 1994 Musculoskeletal gait and station Overall: normal station 03/26/2017 None Full Exam - General 1994 Musculoskeletal head and neck Overall: head atraumatic 03/26/2017 None Full Exam - General 1994 Musculoskeletal head and neck Overall: TMJ benign 03/26/2017 None Full Exam - General 1994 Musculoskeletal head and neck Overall: cervical spine benign 03/26/2017 None Full Exam - General 1994 Integument inspection of skin Location: right foot 03/26/2017 ulcer 5th toe and plantar surface of right foot Full Exam - General 1994 Neurologic cranial nerves Overall: crainial nerves 2 - 12 grossly intact 03/26/2017 None Full Exam - General 1994 Psychiatric orientation/consciousness Overall: oriented to person, place and time 03/26/2017 None Full Exam - General 1994 Integument inspection of skin Location: left foot 03/26/2017 ulcer left great toe Full Exam - General 1994 Constitutional general appearance Overall: well developed 03/12/2017 None Full Exam - General 1994 Constitutional general appearance Overall: in no acute distress 03/12/2017 None Full Exam - General 1994 Constitutional general appearance Overall: well nourished 03/12/2017 None Full Exam - General 1994 Eyes conjunctiva /eyelids Overall: conjunctiva clear 03/12/2017 None Full Exam - General 1994 Eyes conjunctiva /eyelids Overall: cornea clear 03/12/2017 None Full Exam - General 1994 Eyes conjunctiva /eyelids Overall: eyelids normal 03/12/2017 None Full Exam - General 1994 Eyes conjunctiva /eyelids Orbit: exophthalmos 03/12/2017 None Full Exam - General 1994 Eyes pupils and irises Overall: pupils equal, round, reactive to light and accomodation 03/12/2017 None Full Exam - General 1994 Ears/Nose/Throat otoscopic exam Overall: external auditory canals clear 03/12/2017 None Full Exam - General 1994 Ears/Nose/Throat otoscopic exam Overall: tympanic membranes clear 03/12/2017 None Full Exam - General 1994 Ears/Nose/Throat lips/teeth/gingiva Overall: benign lips 03/12/2017 None Full Exam - General 1994 Ears/Nose/Throat lips/teeth/gingiva Overall: no masses 03/12/2017 None Full Exam - General 1994 Ears/Nose/Throat oral cavity/pharynx/larynx Overall: oral mucosa clear 03/12/2017 None Full Exam - General 1994 Ears/Nose/Throat oral cavity/pharynx/larynx Overall: oropharyngeal mucosa clear 03/12/2017 None Full Exam - General 1994 Respiratory auscultation Overall: breath sounds clear bilaterally 03/12/2017 None Full Exam - General 1994 Respiratory respiratory effort/rhythm Overall: no retractions 03/12/2017 None Full Exam - General 1994 Respiratory respiratory effort/rhythm Overall: normal rate 03/12/2017 None Full Exam - General 1994 Cardiovascular auscultation of heart Overall: regular rate 03/12/2017 None Full Exam - General 1994 Cardiovascular auscultation of heart Overall: normal heart sounds 03/12/2017 None Full Exam - General 1994 Abdomen abdominal exam Overall: no tenderness 03/12/2017 None Full Exam - General 1994 Abdomen abdominal exam Overall: normal bowel sounds 03/12/2017 None Full Exam - General 1994 Musculoskeletal digits and nails Overall: no clubbing 03/12/2017 None Full Exam - General 1994 Musculoskeletal digits and nails Overall: digits benign 03/12/2017 None Full Exam - General 1994 Musculoskeletal spine, ribs and pelvis Posture: kyphoscoliosis 03/12/2017 None Full Exam - General 1994 Musculoskeletal gait and station Overall: normal gait 03/12/2017 None Full Exam - General 1994 Musculoskeletal gait and station Overall: normal station 03/12/2017 None Full Exam - General 1994 Musculoskeletal head and neck Overall: head atraumatic 03/12/2017 None Full Exam - General 1994 Musculoskeletal head and neck Overall: TMJ benign 03/12/2017 None Full Exam - General 1994 Musculoskeletal head and neck Overall: cervical spine benign 03/12/2017 None Full Exam - General 1994 Integument inspection of skin Location: right foot 03/12/2017 ulcer 5th toe and plantar surface of right foot , erythema to mid foot --Improved Full Exam - General 1994 Neurologic cranial nerves Overall: crainial nerves 2 - 12 grossly intact 03/12/2017 None Full Exam - General 1994 Psychiatric orientation/consciousness Overall: oriented to person, place and time 03/12/2017 None Full Exam - General 1994 Cardiovascular auscultation of heart Systolic murmur: holosystolic 03/12/2017 None Full Exam - General 1994 Cardiovascular auscultation of heart Systolic murmur grade: III/ 03/12/2017 None Full Exam - General 1994 Constitutional general appearance Overall: well developed 03/08/2017 None Full Exam - General 1994 Constitutional general appearance Overall: in no acute distress 03/08/2017 None Full Exam - General 1994 Constitutional general appearance Overall: well nourished 03/08/2017 None Full Exam - General 1994 Eyes conjunctiva /eyelids Overall: conjunctiva clear 03/08/2017 None Full Exam - General 1994 Eyes conjunctiva /eyelids Overall: cornea clear 03/08/2017 None Full Exam - General 1994 Eyes conjunctiva /eyelids Overall: eyelids normal 03/08/2017 None Full Exam - General 1994 Eyes pupils and irises Overall: pupils equal, round, reactive to light and accomodation 03/08/2017 None Full Exam - General 1994 Ears/Nose/Throat otoscopic exam Overall: external auditory canals clear 03/08/2017 None Full Exam - General 1994 Ears/Nose/Throat otoscopic exam Overall: tympanic membranes clear 03/08/2017 None Full Exam - General 1994 Ears/Nose/Throat lips/teeth/gingiva Overall: benign lips 03/08/2017 None Full Exam - General 1994 Ears/Nose/Throat lips/teeth/gingiva Overall: no masses 03/08/2017 None Full Exam - General 1994 Ears/Nose/Throat oral cavity/pharynx/larynx Overall: oral mucosa clear 03/08/2017 None Full Exam - General 1994 Ears/Nose/Throat oral cavity/pharynx/larynx Overall: oropharyngeal mucosa clear 03/08/2017 None Full Exam - General 1994 Respiratory auscultation Overall: breath sounds clear bilaterally 03/08/2017 None Full Exam - General 1994 Respiratory respiratory effort/rhythm Overall: no retractions 03/08/2017 None Full Exam - General 1994 Respiratory respiratory effort/rhythm Overall: normal rate 03/08/2017 None Full Exam - General 1994 Cardiovascular auscultation of heart Overall: regular rate 03/08/2017 None Full Exam - General 1994 Cardiovascular auscultation of heart Overall: normal heart sounds 03/08/2017 None Full Exam - General 1994 Cardiovascular auscultation of heart Overall: no murmurs 03/08/2017 None Full Exam - General 1994 Abdomen abdominal exam Overall: no tenderness 03/08/2017 None Full Exam - General 1994 Abdomen abdominal exam Overall: normal bowel sounds 03/08/2017 None Full Exam - General 1994 Musculoskeletal digits and nails Overall: no clubbing 03/08/2017 None Full Exam - General 1994 Musculoskeletal digits and nails Overall: digits benign 03/08/2017 None Full Exam - General 1994 Musculoskeletal spine, ribs and pelvis Posture: kyphoscoliosis 03/08/2017 None Full Exam - General 1994 Musculoskeletal gait and station Overall: normal gait 03/08/2017 None Full Exam - General 1994 Musculoskeletal gait and station Overall: normal station 03/08/2017 None Full Exam - General 1994 Musculoskeletal head and neck Overall: head atraumatic 03/08/2017 None Full Exam - General 1994 Musculoskeletal head and neck Overall: TMJ benign 03/08/2017 None Full Exam - General 1994 Musculoskeletal head and neck Overall: cervical spine benign 03/08/2017 None Full Exam - General 1994 Neurologic cranial nerves Overall: crainial nerves 2 - 12 grossly intact 03/08/2017 None Full Exam - General 1994 Psychiatric orientation/consciousness Overall: oriented to person, place and time 03/08/2017 None Full Exam - General 1994 Eyes conjunctiva /eyelids Orbit: exophthalmos 03/08/2017 None Full Exam - General 1994 Integument inspection of skin Location: right foot 03/08/2017 ulcer 5th toe and plantar surface of right foot , erythema to mid foot Full Exam - General 1994 Constitutional general appearance Overall: well developed 02/16/2016 None Full Exam - General 1994 Constitutional general appearance Overall: in no acute distress 02/16/2016 None Full Exam - General 1994 Constitutional general appearance Overall: well nourished 02/16/2016 None Full Exam - General 1994 Eyes conjunctiva /eyelids Overall: conjunctiva clear 02/16/2016 None Full Exam - General 1994 Eyes conjunctiva /eyelids Overall: cornea clear 02/16/2016 None Full Exam - General 1994 Eyes conjunctiva /eyelids Overall: eyelids normal 02/16/2016 None Full Exam - General 1994 Eyes pupils and irises Overall: pupils equal, round, reactive to light and accomodation 02/16/2016 None Full Exam - General 1994 Ears/Nose/Throat lips/teeth/gingiva Overall: benign lips 02/16/2016 None Full Exam - General 1994 Ears/Nose/Throat oral cavity/pharynx/larynx Overall: oral mucosa clear 02/16/2016 None Full Exam - General 1994 Respiratory auscultation Overall: breath sounds clear bilaterally 02/16/2016 None Full Exam - General 1994 Respiratory respiratory effort/rhythm Overall: no retractions 02/16/2016 None Full Exam - General 1994 Respiratory respiratory effort/rhythm Overall: normal rate 02/16/2016 None Full Exam - General 1994 Cardiovascular auscultation of heart Overall: regular rate 02/16/2016 None Full Exam - General 1994 Cardiovascular auscultation of heart Overall: normal heart sounds 02/16/2016 None Full Exam - General 1994 Musculoskeletal spine, ribs and pelvis Posture: kyphoscoliosis 02/16/2016 None Full Exam - General 1994 Musculoskeletal gait and station Overall: normal gait 02/16/2016 None Full Exam - General 1994 Musculoskeletal gait and station Overall: normal station 02/16/2016 None Full Exam - General 1994 Musculoskeletal head and neck Overall: head atraumatic 02/16/2016 None Full Exam - General 1994 Neurologic cranial nerves Overall: crainial nerves 2 - 12 grossly intact 02/16/2016 None Full Exam - General 1994 Psychiatric orientation/consciousness Overall: oriented to person, place and time 02/16/2016 None Full Exam - General 1994 Psychiatric mood and affect Overall: normal mood and affect 02/16/2016 None Full Exam - General 1994 Psychiatric appearance Overall: well-groomed, good eye contact 02/16/2016 None Full Exam - General 1994 Neurologic gait Overall: no ataxia, no unsteadiness 02/16/2016 None Full Exam - General 1994 Constitutional general appearance Overall: well developed 09/14/2015 None Full Exam - General 1994 Constitutional general appearance Overall: in no acute distress 09/14/2015 None Full Exam - General 1994 Constitutional general appearance Overall: well nourished 09/14/2015 None Full Exam - General 1994 Eyes conjunctiva /eyelids Overall: conjunctiva clear 09/14/2015 None Full Exam - General 1994 Eyes conjunctiva /eyelids Overall: cornea clear 09/14/2015 None Full Exam - General 1994 Eyes conjunctiva /eyelids Overall: eyelids normal 09/14/2015 None Full Exam - General 1994 Eyes pupils and irises Overall: pupils equal, round, reactive to light and accomodation 09/14/2015 None Full Exam - General 1994 Ears/Nose/Throat otoscopic exam Overall: external auditory canals clear 09/14/2015 None Full Exam - General 1994 Ears/Nose/Throat otoscopic exam Overall: tympanic membranes clear 09/14/2015 None Full Exam - General 1994 Ears/Nose/Throat lips/teeth/gingiva Overall: benign lips 09/14/2015 None Full Exam - General 1994 Ears/Nose/Throat lips/teeth/gingiva Overall: no masses 09/14/2015 None Full Exam - General 1994 Ears/Nose/Throat oral cavity/pharynx/larynx Overall: oral mucosa clear 09/14/2015 None Full Exam - General 1994 Ears/Nose/Throat oral cavity/pharynx/larynx Overall: oropharyngeal mucosa clear 09/14/2015 None Full Exam - General 1994 Respiratory auscultation Overall: breath sounds clear bilaterally 09/14/2015 None Full Exam - General 1994 Respiratory respiratory effort/rhythm Overall: no retractions 09/14/2015 None Full Exam - General 1994 Respiratory respiratory effort/rhythm Overall: normal rate 09/14/2015 None Full Exam - General 1994 Cardiovascular auscultation of heart Overall: regular rate 09/14/2015 None Full Exam - General 1994 Cardiovascular auscultation of heart Overall: normal heart sounds 09/14/2015 None Full Exam - General 1994 Cardiovascular auscultation of heart Overall: no murmurs 09/14/2015 None Full Exam - General 1994 Abdomen abdominal exam Overall: no tenderness 09/14/2015 None Full Exam - General 1994 Abdomen abdominal exam Overall: normal bowel sounds 09/14/2015 None Full Exam - General 1994 Musculoskeletal digits and nails Overall: no clubbing 09/14/2015 None Full Exam - General 1994 Musculoskeletal digits and nails Overall: digits benign 09/14/2015 None Full Exam - General 1994 Musculoskeletal spine, ribs and pelvis Posture: kyphoscoliosis 09/14/2015 None Full Exam - General 1994 Musculoskeletal gait and station Overall: normal gait 09/14/2015 None Full Exam - General 1994 Musculoskeletal gait and station Overall: normal station 09/14/2015 None Full Exam - General 1994 Musculoskeletal head and neck Overall: head atraumatic 09/14/2015 None Full Exam - General 1994 Musculoskeletal head and neck Overall: TMJ benign 09/14/2015 None Full Exam - General 1994 Musculoskeletal head and neck Overall: cervical spine benign 09/14/2015 None Full Exam - General 1994 Neurologic cranial nerves Overall: crainial nerves 2 - 12 grossly intact 09/14/2015 None Full Exam - General 1994 Psychiatric orientation/consciousness Overall: oriented to person, place and time 09/14/2015 None Full Exam - General 1994 Psychiatric mood and affect Overall: normal mood and affect 09/14/2015 None Full Exam - General 1994 Psychiatric appearance Overall: well-groomed, good eye contact 09/14/2015 None Full Exam - General 1994 Constitutional general appearance Overall: well developed 10/21/2014 None Full Exam - General 1994 Constitutional general appearance Overall: in no acute distress 10/21/2014 None Full Exam - General 1994 Constitutional general appearance Overall: well nourished 10/21/2014 None Full Exam - General 1994 Eyes conjunctiva /eyelids Overall: conjunctiva clear 10/21/2014 None Full Exam - General 1994 Eyes conjunctiva /eyelids Overall: cornea clear 10/21/2014 None Full Exam - General 1994 Eyes conjunctiva /eyelids Overall: eyelids normal 10/21/2014 None Full Exam - General 1994 Eyes pupils and irises Overall: pupils equal, round, reactive to light and accomodation 10/21/2014 None Full Exam - General 1994 Ears/Nose/Throat otoscopic exam Overall: external auditory canals clear 10/21/2014 None Full Exam - General 1994 Ears/Nose/Throat otoscopic exam Overall: tympanic membranes clear 10/21/2014 None Full Exam - General 1994 Ears/Nose/Throat lips/teeth/gingiva Overall: benign lips 10/21/2014 None Full Exam - General 1994 Ears/Nose/Throat lips/teeth/gingiva Overall: no masses 10/21/2014 None Full Exam - General 1994 Ears/Nose/Throat oral cavity/pharynx/larynx Overall: oral mucosa clear 10/21/2014 None Full Exam - General 1994 Ears/Nose/Throat oral cavity/pharynx/larynx Overall: oropharyngeal mucosa clear 10/21/2014 None Full Exam - General 1994 Respiratory auscultation Overall: breath sounds clear bilaterally 10/21/2014 None Full Exam - General 1994 Respiratory respiratory effort/rhythm Overall: no retractions 10/21/2014 None Full Exam - General 1994 Respiratory respiratory effort/rhythm Overall: normal rate 10/21/2014 None Full Exam - General 1994 Cardiovascular auscultation of heart Overall: regular rate 10/21/2014 None Full Exam - General 1994 Cardiovascular auscultation of heart Overall: normal heart sounds 10/21/2014 None Full Exam - General 1994 Cardiovascular auscultation of heart Overall: no murmurs 10/21/2014 None Full Exam - General 1994 Abdomen abdominal exam Overall: no tenderness 10/21/2014 None Full Exam - General 1994 Abdomen abdominal exam Overall: normal bowel sounds 10/21/2014 None Full Exam - General 1994 Musculoskeletal digits and nails Overall: no clubbing 10/21/2014 None Full Exam - General 1994 Musculoskeletal digits and nails Overall: digits benign 10/21/2014 None Full Exam - General 1994 Musculoskeletal spine, ribs and pelvis Posture: kyphoscoliosis 10/21/2014 None Full Exam - General 1994 Musculoskeletal gait and station Overall: normal gait 10/21/2014 None Full Exam - General 1994 Musculoskeletal gait and station Overall: normal station 10/21/2014 None Full Exam - General 1994 Musculoskeletal head and neck Overall: head atraumatic 10/21/2014 None Full Exam - General 1994 Musculoskeletal head and neck Overall: TMJ benign 10/21/2014 None Full Exam - General 1994 Musculoskeletal head and neck Overall: cervical spine benign 10/21/2014 None Full Exam - General 1994 Neurologic cranial nerves Overall: crainial nerves 2 - 12 grossly intact 10/21/2014 None Full Exam - General 1994 Psychiatric orientation/consciousness Overall: oriented to person, place and time 10/21/2014 None Full Exam - General 1994 Psychiatric mood and affect Overall: normal mood and affect 10/21/2014 None Full Exam - General 1994 Psychiatric appearance Overall: well-groomed, good eye contact 10/21/2014 None Full Exam - General 1994 Constitutional general appearance Overall: well developed 10/11/2014 None Full Exam - General 1994 Constitutional general appearance Overall: in no acute distress 10/11/2014 None Full Exam - General 1994 Constitutional general appearance Overall: well nourished 10/11/2014 None Full Exam - General 1994 Eyes conjunctiva /eyelids Overall: conjunctiva clear 10/11/2014 None Full Exam - General 1994 Eyes conjunctiva /eyelids Overall: cornea clear 10/11/2014 None Full Exam - General 1994 Eyes conjunctiva /eyelids Overall: eyelids normal 10/11/2014 None Full Exam - General 1994 Eyes pupils and irises Overall: pupils equal, round, reactive to light and accomodation 10/11/2014 None Full Exam - General 1994 Ears/Nose/Throat otoscopic exam Overall: external auditory canals clear 10/11/2014 None Full Exam - General 1994 Ears/Nose/Throat otoscopic exam Overall: tympanic membranes clear 10/11/2014 None Full Exam - General 1994 Ears/Nose/Throat lips/teeth/gingiva Overall: benign lips 10/11/2014 None Full Exam - General 1994 Ears/Nose/Throat lips/teeth/gingiva Overall: no masses 10/11/2014 None Full Exam - General 1994 Ears/Nose/Throat oral cavity/pharynx/larynx Overall: oral mucosa clear 10/11/2014 None Full Exam - General 1994 Ears/Nose/Throat oral cavity/pharynx/larynx Overall: oropharyngeal mucosa clear 10/11/2014 None Full Exam - General 1994 Respiratory respiratory effort/rhythm Overall: no retractions 10/11/2014 None Full Exam - General 1994 Respiratory respiratory effort/rhythm Overall: normal rate 10/11/2014 None Full Exam - General 1994 Cardiovascular auscultation of heart Overall: regular rate 10/11/2014 None Full Exam - General 1994 Cardiovascular auscultation of heart Overall: normal heart sounds 10/11/2014 None Full Exam - General 1994 Cardiovascular auscultation of heart Overall: no murmurs 10/11/2014 None Full Exam - General 1994 Abdomen abdominal exam Overall: no tenderness 10/11/2014 None Full Exam - General 1994 Abdomen abdominal exam Overall: normal bowel sounds 10/11/2014 None Full Exam - General 1994 Musculoskeletal digits and nails Overall: no clubbing 10/11/2014 None Full Exam - General 1994 Musculoskeletal digits and nails Overall: digits benign 10/11/2014 None Full Exam - General 1994 Musculoskeletal spine, ribs and pelvis Posture: kyphoscoliosis 10/11/2014 None Full Exam - General 1994 Musculoskeletal gait and station Overall: normal gait 10/11/2014 None Full Exam - General 1994 Musculoskeletal gait and station Overall: normal station 10/11/2014 None Full Exam - General 1994 Musculoskeletal head and neck Overall: head atraumatic 10/11/2014 None Full Exam - General 1994 Musculoskeletal head and neck Overall: TMJ benign 10/11/2014 None Full Exam - General 1994 Musculoskeletal head and neck Overall: cervical spine benign 10/11/2014 None Full Exam - General 1994 Neurologic cranial nerves Overall: crainial nerves 2 - 12 grossly intact 10/11/2014 None Full Exam - General 1994 Psychiatric orientation/consciousness Overall: oriented to person, place and time 10/11/2014 None Full Exam - General 1994 Psychiatric mood and affect Overall: normal mood and affect 10/11/2014 None Full Exam - General 1994 Psychiatric appearance Overall: well-groomed, good eye contact 10/11/2014 None Full Exam - General 1994 Respiratory auscultation Upper lung field: crackles 10/11/2014 None Full Exam - General 1994 Constitutional general appearance Overall: well developed 07/28/2014 None Full Exam - General 1994 Constitutional general appearance Overall: in no acute distress 07/28/2014 None Full Exam - General 1994 Constitutional general appearance Overall: well nourished 07/28/2014 None Full Exam - General 1994 Eyes conjunctiva /eyelids Overall: conjunctiva clear 07/28/2014 None Full Exam - General 1994 Eyes conjunctiva /eyelids Overall: cornea clear 07/28/2014 None Full Exam - General 1994 Eyes conjunctiva /eyelids Overall: eyelids normal 07/28/2014 None Full Exam - General 1994 Eyes pupils and irises Overall: pupils equal, round, reactive to light and accomodation 07/28/2014 None Full Exam - General 1994 Ears/Nose/Throat otoscopic exam Overall: external auditory canals clear 07/28/2014 None Full Exam - General 1994 Ears/Nose/Throat otoscopic exam Overall: tympanic membranes clear 07/28/2014 None Full Exam - General 1994 Ears/Nose/Throat lips/teeth/gingiva Overall: benign lips 07/28/2014 None Full Exam - General 1994 Ears/Nose/Throat lips/teeth/gingiva Overall: no masses 07/28/2014 None Full Exam - General 1994 Ears/Nose/Throat oral cavity/pharynx/larynx Overall: oral mucosa clear 07/28/2014 None Full Exam - General 1994 Ears/Nose/Throat oral cavity/pharynx/larynx Overall: oropharyngeal mucosa clear 07/28/2014 None Full Exam - General 1994 Respiratory auscultation Overall: breath sounds clear bilaterally 07/28/2014 None Full Exam - General 1994 Respiratory respiratory effort/rhythm Overall: no retractions 07/28/2014 None Full Exam - General 1994 Respiratory respiratory effort/rhythm Overall: normal rate 07/28/2014 None Full Exam - General 1994 Cardiovascular auscultation of heart Overall: regular rate 07/28/2014 None Full Exam - General 1994 Cardiovascular auscultation of heart Overall: normal heart sounds 07/28/2014 None Full Exam - General 1994 Cardiovascular auscultation of heart Overall: no murmurs 07/28/2014 None Full Exam - General 1994 Abdomen abdominal exam Overall: no tenderness 07/28/2014 None Full Exam - General 1994 Abdomen abdominal exam Overall: normal bowel sounds 07/28/2014 None Full Exam - General 1994 Musculoskeletal digits and nails Overall: no clubbing 07/28/2014 None Full Exam - General 1994 Musculoskeletal digits and nails Overall: digits benign 07/28/2014 None Full Exam - General 1994 Musculoskeletal spine, ribs and pelvis Posture: kyphoscoliosis 07/28/2014 None Full Exam - General 1994 Musculoskeletal gait and station Overall: normal gait 07/28/2014 None Full Exam - General 1994 Musculoskeletal gait and station Overall: normal station 07/28/2014 None Full Exam - General 1994 Musculoskeletal head and neck Overall: head atraumatic 07/28/2014 None Full Exam - General 1994 Musculoskeletal head and neck Overall: TMJ benign 07/28/2014 None Full Exam - General 1994 Musculoskeletal head and neck Overall: cervical spine benign 07/28/2014 None Full Exam - General 1994 Psychiatric orientation/consciousness Overall: oriented to person, place and time 07/28/2014 None Full Exam - General 1994 Psychiatric mood and affect Overall: normal mood and affect 07/28/2014 None Full Exam - General 1994 Psychiatric appearance Overall: well-groomed, good eye contact 07/28/2014 None Full Exam - General 1994 Neurologic cranial nerves Overall: crainial nerves 2 - 12 grossly intact 07/28/2014 None Full Exam - General 1994 Constitutional general appearance Overall: well developed 01/27/2014 None Full Exam - General 1994 Constitutional general appearance Overall: in no acute distress 01/27/2014 None Full Exam - General 1994 Constitutional general appearance Overall: well nourished 01/27/2014 None Full Exam - General 1994 Eyes conjunctiva /eyelids Overall: conjunctiva clear 01/27/2014 None Full Exam - General 1994 Eyes conjunctiva /eyelids Overall: cornea clear 01/27/2014 None Full Exam - General 1994 Eyes conjunctiva /eyelids Overall: eyelids normal 01/27/2014 None Full Exam - General 1994 Eyes pupils and irises Overall: pupils equal, round, reactive to light and accomodation 01/27/2014 None Full Exam - General 1994 Respiratory auscultation Overall: breath sounds clear bilaterally 01/27/2014 None Full Exam - General 1994 Respiratory respiratory effort/rhythm Overall: no retractions 01/27/2014 None Full Exam - General 1994 Respiratory respiratory effort/rhythm Overall: normal rate 01/27/2014 None Full Exam - General 1994 Cardiovascular auscultation of heart Overall: regular rate 01/27/2014 None Full Exam - General 1994 Cardiovascular auscultation of heart Overall: normal heart sounds 01/27/2014 None Full Exam - General 1994 Cardiovascular auscultation of heart Overall: no murmurs 01/27/2014 None Full Exam - General 1994 Musculoskeletal spine, ribs and pelvis Posture: kyphoscoliosis 01/27/2014 None Full Exam - General 1994 Musculoskeletal gait and station Overall: normal gait 01/27/2014 None Full Exam - General 1994 Musculoskeletal gait and station Overall: normal station 01/27/2014 None Full Exam - General 1994 Musculoskeletal head and neck Overall: head atraumatic 01/27/2014 None Full Exam - General 1994 Musculoskeletal head and neck Overall: TMJ benign 01/27/2014 None Full Exam - General 1994 Musculoskeletal head and neck Overall: cervical spine benign 01/27/2014 None Full Exam - General 1994 Psychiatric orientation/consciousness Overall: oriented to person, place and time 01/27/2014 None Full Exam - General 1994 Psychiatric mood and affect Overall: normal mood and affect 01/27/2014 None Full Exam - General 1994 Psychiatric appearance Overall: well-groomed, good eye contact 01/27/2014 None Full Exam - General 1994 Ears/Nose/Throat otoscopic exam Overall: external auditory canals clear 01/27/2014 None Full Exam - General 1994 Ears/Nose/Throat otoscopic exam Overall: tympanic membranes clear 01/27/2014 None Full Exam - General 1994 Ears/Nose/Throat lips/teeth/gingiva Overall: benign lips 01/27/2014 None Full Exam - General 1994 Ears/Nose/Throat lips/teeth/gingiva Overall: no masses 01/27/2014 None Full Exam - General 1994 Ears/Nose/Throat oral cavity/pharynx/larynx Overall: oral mucosa clear 01/27/2014 None Full Exam - General 1994 Ears/Nose/Throat oral cavity/pharynx/larynx Overall: oropharyngeal mucosa clear 01/27/2014 None Full Exam - General 1994 Abdomen abdominal exam Overall: no tenderness 01/27/2014 None Full Exam - General 1994 Abdomen abdominal exam Overall: normal bowel sounds 01/27/2014 None Full Exam - General 1994 Musculoskeletal digits and nails Overall: no clubbing 01/27/2014 None Full Exam - General 1994 Musculoskeletal digits and nails Overall: digits benign 01/27/2014 None Full Exam - General 1994 Constitutional general appearance Overall: well developed 10/22/2013 None Full Exam - General 1994 Constitutional general appearance Overall: in no acute distress 10/22/2013 None Full Exam - General 1994 Constitutional general appearance Overall: well nourished 10/22/2013 None Full Exam - General 1994 Eyes conjunctiva /eyelids Overall: conjunctiva clear 10/22/2013 None Full Exam - General 1994 Eyes conjunctiva /eyelids Overall: cornea clear 10/22/2013 None Full Exam - General 1994 Eyes conjunctiva /eyelids Overall: eyelids normal 10/22/2013 None Full Exam - General 1994 Eyes pupils and irises Overall: pupils equal, round, reactive to light and accomodation 10/22/2013 None Full Exam - General 1994 Respiratory auscultation Overall: breath sounds clear bilaterally 10/22/2013 None Full Exam - General 1994 Respiratory respiratory effort/rhythm Overall: no retractions 10/22/2013 None Full Exam - General 1994 Respiratory respiratory effort/rhythm Overall: normal rate 10/22/2013 None Full Exam - General 1994 Cardiovascular auscultation of heart Overall: regular rate 10/22/2013 None Full Exam - General 1994 Cardiovascular auscultation of heart Overall: normal heart sounds 10/22/2013 None Full Exam - General 1994 Cardiovascular auscultation of heart Overall: no murmurs 10/22/2013 None Full Exam - General 1994 Musculoskeletal spine, ribs and pelvis Posture: kyphoscoliosis 10/22/2013 None Full Exam - General 1994 Musculoskeletal gait and station Overall: normal gait 10/22/2013 None Full Exam - General 1994 Musculoskeletal gait and station Overall: normal station 10/22/2013 None Full Exam - General 1994 Musculoskeletal head and neck Overall: head atraumatic 10/22/2013 None Full Exam - General 1994 Musculoskeletal head and neck Overall: TMJ benign 10/22/2013 None Full Exam - General 1994 Musculoskeletal head and neck Overall: cervical spine benign 10/22/2013 None Full Exam - General 1994 Psychiatric orientation/consciousness Overall: oriented to person, place and time 10/22/2013 None Full Exam - General 1994 Psychiatric mood and affect Overall: normal mood and affect 10/22/2013 None Full Exam - General 1994 Psychiatric appearance Overall: well-groomed, good eye contact 10/22/2013 None Full Exam - General 1994 Constitutional general appearance Overall: well developed 08/24/2013 None Full Exam - General 1994 Constitutional general appearance Overall: in no acute distress 08/24/2013 None Full Exam - General 1994 Constitutional general appearance Overall: well nourished 08/24/2013 None Full Exam - General 1994 Eyes conjunctiva /eyelids Overall: conjunctiva clear 08/24/2013 None Full Exam - General 1994 Eyes conjunctiva /eyelids Overall: cornea clear 08/24/2013 None Full Exam - General 1994 Eyes conjunctiva /eyelids Overall: eyelids normal 08/24/2013 None Full Exam - General 1994 Eyes pupils and irises Overall: pupils equal, round, reactive to light and accomodation 08/24/2013 None Full Exam - General 1994 Ears/Nose/Throat otoscopic exam Overall: external auditory canals clear 08/24/2013 None Full Exam - General 1994 Ears/Nose/Throat otoscopic exam Overall: tympanic membranes clear 08/24/2013 None Full Exam - General 1994 Ears/Nose/Throat lips/teeth/gingiva Overall: benign lips 08/24/2013 None Full Exam - General 1994 Ears/Nose/Throat lips/teeth/gingiva Overall: no masses 08/24/2013 None Full Exam - General 1994 Ears/Nose/Throat oral cavity/pharynx/larynx Overall: oral mucosa clear 08/24/2013 None Full Exam - General 1994 Ears/Nose/Throat oral cavity/pharynx/larynx Overall: oropharyngeal mucosa clear 08/24/2013 None Full Exam - General 1994 Respiratory auscultation Overall: breath sounds clear bilaterally 08/24/2013 None Full Exam - General 1994 Respiratory respiratory effort/rhythm Overall: no retractions 08/24/2013 None Full Exam - General 1994 Respiratory respiratory effort/rhythm Overall: normal rate 08/24/2013 None Full Exam - General 1994 Cardiovascular auscultation of heart Overall: regular rate 08/24/2013 None Full Exam - General 1994 Cardiovascular auscultation of heart Overall: normal heart sounds 08/24/2013 None Full Exam - General 1994 Cardiovascular auscultation of heart Overall: no murmurs 08/24/2013 None Full Exam - General 1995 Abdomen abdominal exam Overall: no tenderness 08/24/2013 None Full Exam - General 1994 Abdomen abdominal exam Overall: normal bowel sounds 08/24/2013 None Full Exam - General 1994 Musculoskeletal digits and nails Overall: no clubbing 08/24/2013 None Full Exam - General 1994 Musculoskeletal digits and nails Overall: digits benign 08/24/2013 None Full Exam - General 1994 Musculoskeletal spine, ribs and pelvis Posture: kyphoscoliosis 08/24/2013 None Full Exam - General 1994 Musculoskeletal gait and station Overall: normal gait 08/24/2013 None Full Exam - General 1994 Musculoskeletal gait and station Overall: normal station 08/24/2013 None Full Exam - General 1994 Musculoskeletal head and neck Overall: head atraumatic 08/24/2013 None Full Exam - General 1994 Musculoskeletal head and neck Overall: TMJ benign 08/24/2013 None Full Exam - General 1994 Musculoskeletal head and neck Overall: cervical spine benign 08/24/2013 None Full Exam - General 1994 Psychiatric orientation/consciousness Overall: oriented to person, place and time 08/24/2013 None Full Exam - General 1994 Psychiatric mood and affect Overall: normal mood and affect 08/24/2013 None Full Exam - General 1994 Psychiatric appearance Overall: well-groomed, good eye contact 08/24/2013 None Full Exam - General 1994 Psychiatric appearance Overall: well-groomed, good eye contact 04/02/2013 None Full Exam - General 1994 Constitutional general appearance Overall: well developed 04/02/2013 None Full Exam - General 1994 Constitutional general appearance Overall: in no acute distress 04/02/2013 None Full Exam - General 1994 Constitutional general appearance Overall: well nourished 04/02/2013 None Full Exam - General 1994 Cardiovascular auscultation of heart Overall: regular rate 04/02/2013 None Full Exam - General 1994 Cardiovascular auscultation of heart Overall: normal heart sounds 04/02/2013 None Full Exam - General 1994 Integument inspection of skin Location: right foot 04/02/2013 plantar surface-open, callus with ulceration in the center that is 1cm to it's base and 2.5 cm tunnels to great toe Full Exam - General 1994 Integument inspection of skin Rash/Lesions: ulceration 04/02/2013 None Full Exam - General 1994 Constitutional general appearance Overall: well developed 03/31/2013 None Full Exam - General 1995 Constitutional general appearance Overall: in no acute distress 03/31/2013 None Full Exam - General 1995 Constitutional general appearance Overall: well nourished 03/31/2013 None Full Exam - General 1994 Cardiovascular auscultation of heart Overall: regular rate 03/31/2013 None Full Exam - General 1994 Cardiovascular auscultation of heart Overall: normal heart sounds 03/31/2013 None Full Exam - General 1994 Integument inspection of skin Location: right foot 03/31/2013 plantar surface-open, callus with ulceration in the center that is 1cm to it's base and 2.5 cm tunnels to great toe Full Exam - General 1995 Integument inspection of skin Rash/Lesions: ulceration 03/31/2013 None Full Exam - General 1994 Psychiatric appearance Overall: well-groomed, good eye contact 03/31/2013 None Full Exam - General 1994 Constitutional general appearance Overall: well developed 12/18/2012 None Full Exam - General 1994 Constitutional general appearance Overall: in no acute distress 12/18/2012 None Full Exam - General 1994 Constitutional general appearance Overall: well nourished 12/18/2012 None Full Exam - General 1994 Cardiovascular auscultation of heart Overall: regular rate 12/18/2012 None Full Exam - General 1994 Cardiovascular auscultation of heart Overall: normal heart sounds 12/18/2012 None Full Exam - General 1994 Respiratory respiratory effort/rhythm Overall: normal rate 12/18/2012 None Full Exam - General 1994 Respiratory respiratory effort/rhythm Overall: no retractions 12/18/2012 None Full Exam - General 1994 Respiratory auscultation Overall: breath sounds clear bilaterally 12/18/2012 None Full Exam - General 1994 Psychiatric orientation/consciousness Overall: oriented to person, place and time 12/18/2012 None Full Exam - General 1994 Integument inspection of skin Rash/Lesions: macule 12/18/2012 None Full Exam - General 1994 Integument inspection of skin Rash/Lesions: papule 12/18/2012 None Full Exam - General 1994 Integument inspection of skin Location: abdomen 12/18/2012 None Full Exam - General 1994 Integument inspection of skin Location: chest 12/18/2012 None Full Exam - General 1994 Integument inspection of skin Location: back 12/18/2012 None Full Exam - General 1994 Integument inspection of skin Pigmentation: erythematous 12/18/2012 None Full Exam - General 1995 Constitutional general appearance Overall: well developed 10/20/2012 None Full Exam - General 1994 Constitutional general appearance Overall: in no acute distress 10/20/2012 None Full Exam - General 1995 Constitutional general appearance Overall: well nourished 10/20/2012 None Full Exam - General 1995 Cardiovascular auscultation of heart Overall: regular rate 10/20/2012 None Full Exam - General 1994 Cardiovascular auscultation of heart Overall: normal heart sounds 10/20/2012 None Full Exam - General 1995 Integument inspection of skin Location: left foot 10/20/2012 2nd digit-swollen and discolored Full Exam - General 1994 Integument inspection of skin Location: right foot 10/20/2012 plantar surface- ulcerated lesion- callusedulcerated callous right 2nd digit-serous drainage Full Exam - General 1994 Integument inspection of skin Rash/Lesions: ulceration 10/20/2012 None Full Exam - General 1994 Psychiatric appearance Overall: well-groomed, good eye contact 10/20/2012 None Full Exam - General 1994 Cardiovascular auscultation of heart Overall: normal heart sounds 10/16/2012 None Full Exam - General 1994 Integument inspection of skin Location: left foot 10/16/2012 2nd digit-swollen and discolored Full Exam - General 1994 Integument inspection of skin Location: right foot 10/16/2012 plantar surface- ulcerated lesion- callusedulcerated callous right 2nd digit-serous drainage Full Exam - General 1994 Integument inspection of skin Rash/Lesions: ulceration 10/16/2012 None Full Exam - General 1994 Psychiatric appearance Overall: well-groomed, good eye contact 10/16/2012 None Full Exam - General 1994 Respiratory auscultation Overall: breath sounds clear bilaterally 10/16/2012 None Full Exam - General 1994 Respiratory respiratory effort/rhythm Overall: no retractions 10/16/2012 None Full Exam - General 1994 Respiratory respiratory effort/rhythm Overall: normal rate 10/16/2012 None Full Exam - General 1994 Cardiovascular auscultation of heart Overall: no murmurs 10/16/2012 None Full Exam - General 1994 Abdomen abdominal exam Overall: no tenderness 10/16/2012 None Full Exam - General 1994 Abdomen abdominal exam Overall: normal bowel sounds 10/16/2012 None Full Exam - General 1994 Constitutional general appearance Overall: well developed 10/16/2012 None Full Exam - General 1995 Constitutional general appearance Overall: in no acute distress 10/16/2012 None Full Exam - General 1994 Constitutional general appearance Overall: well nourished 10/16/2012 None Full Exam - General 1994 Cardiovascular auscultation of heart Overall: regular rate 10/16/2012 None Full Exam - General 1995 Constitutional general appearance Overall: well developed 08/13/2012 None Full Exam - General 1994 Constitutional general appearance Overall: in no acute distress 08/13/2012 None Full Exam - General 1995 Constitutional general appearance Overall: well nourished 08/13/2012 None Full Exam - General 1994 Respiratory auscultation Overall: breath sounds clear bilaterally 08/13/2012 None Full Exam - General 1994 Respiratory respiratory effort/rhythm Overall: no retractions 08/13/2012 None Full Exam - General 1994 Respiratory respiratory effort/rhythm Overall: normal rate 08/13/2012 None Full Exam - General 1994 Cardiovascular auscultation of heart Overall: regular rate 08/13/2012 None Full Exam - General 1994 Cardiovascular auscultation of heart Overall: normal heart sounds 08/13/2012 None Full Exam - General 1994 Cardiovascular auscultation of heart Overall: no murmurs 08/13/2012 None Full Exam - General 1994 Abdomen abdominal exam Overall: no tenderness 08/13/2012 None Full Exam - General 1994 Abdomen abdominal exam Overall: normal bowel sounds 08/13/2012 None Full Exam - General 1994 Integument inspection of skin Location: left foot 08/13/2012 None Full Exam - General 1994 Integument inspection of skin Location: right foot 08/13/2012 plantar surface- ulcerated lesion- painful, callused, open with small amount of pustular discharge.Right 3rd toe with callous noted-small amout of serous drainage-pared down with a #15 blade scalpel Full Exam - General 1994 Integument inspection of skin Rash/Lesions: ulceration 08/13/2012 None Full Exam - General 1994 Psychiatric appearance Overall: well-groomed, good eye contact 08/13/2012 None Full Exam - General 1994 Constitutional general appearance Overall: well developed 07/29/2012 None Full Exam - General 1994 Constitutional general appearance Overall: in no acute distress 07/29/2012 None Full Exam - General 1994 Constitutional general appearance Overall: well nourished 07/29/2012 None Full Exam - General 1995 Respiratory auscultation Overall: breath sounds clear bilaterally 07/29/2012 None Full Exam - General 1994 Respiratory respiratory effort/rhythm Overall: no retractions 07/29/2012 None Full Exam - General 1994 Respiratory respiratory effort/rhythm Overall: normal rate 07/29/2012 None Full Exam - General 1994 Cardiovascular auscultation of heart Overall: regular rate 07/29/2012 None Full Exam - General 1994 Cardiovascular auscultation of heart Overall: normal heart sounds 07/29/2012 None Full Exam - General 1994 Cardiovascular auscultation of heart Overall: no murmurs 07/29/2012 None Full Exam - General 1994 Abdomen abdominal exam Overall: no tenderness 07/29/2012 None Full Exam - General 1994 Abdomen abdominal exam Overall: normal bowel sounds 07/29/2012 None Full Exam - General 1994 Integument inspection of skin Location: left foot 07/29/2012 None Full Exam - General 1994 Integument inspection of skin Location: right foot 07/29/2012 plantar surface- ulcerated lesion- painful, callused, open with small amount of pustular discharge.Right 3rd toe with callous noted-small amout of serous drainage-pared down with a #15 blade scalpel Full Exam - General 1994 Integument inspection of skin Rash/Lesions: ulceration 07/29/2012 None Full Exam - General 1994 Psychiatric appearance Overall: well-groomed, good eye contact 07/29/2012 None Full Exam - General 1994 Constitutional general appearance Overall: well developed 07/17/2012 None Full Exam - General 1994 Constitutional general appearance Overall: in no acute distress 07/17/2012 None Full Exam - General 1994 Constitutional general appearance Overall: well nourished 07/17/2012 None Full Exam - General 1994 Respiratory auscultation Overall: breath sounds clear bilaterally 07/17/2012 None Full Exam - General 1994 Respiratory respiratory effort/rhythm Overall: no retractions 07/17/2012 None Full Exam - General 1994 Respiratory respiratory effort/rhythm Overall: normal rate 07/17/2012 None Full Exam - General 1994 Cardiovascular auscultation of heart Overall: regular rate 07/17/2012 None Full Exam - General 1994 Cardiovascular auscultation of heart Overall: normal heart sounds 07/17/2012 None Full Exam - General 1994 Cardiovascular auscultation of heart Overall: no murmurs 07/17/2012 None Full Exam - General 1994 Abdomen abdominal exam Overall: no tenderness 07/17/2012 None Full Exam - General 1994 Abdomen abdominal exam Overall: normal bowel sounds 07/17/2012 None Full Exam - General 1994 Integument inspection of skin Location: left foot 07/17/2012 --Resolved Full Exam - General 1994 Integument inspection of skin Location: right foot 07/17/2012 plantar surface- ulcerated lesion- painful, callused, open with small amount of pustular discharge.Right 3rd toe with callous noted-small amout of serous drainage-pared down with a #15 blade scalpel Full Exam - General 1994 Integument inspection of skin Rash/Lesions: ulceration 07/17/2012 None Full Exam - General 1994 Psychiatric appearance Overall: well-groomed, good eye contact 07/17/2012 None Full Exam - General 1994 Constitutional general appearance Overall: well developed 07/07/2012 None Full Exam - General 1994 Constitutional general appearance Overall: in no acute distress 07/07/2012 None Full Exam - General 1994 Constitutional general appearance Overall: well nourished 07/07/2012 None Full Exam - General 1994 Integument inspection of skin Location: left foot 07/07/2012 ulcer noted to medial aspect of left great toe with fibrous tissue at base of wound Full Exam - General 1994 Integument inspection of skin Rash/Lesions: ulceration 07/07/2012 None Full Exam - General 1994 Psychiatric appearance Overall: well-groomed, good eye contact 07/07/2012 None Full Exam - General 1994 Respiratory respiratory effort/rhythm Overall: normal rate 07/07/2012 None Full Exam - General 1994 Respiratory respiratory effort/rhythm Overall: no retractions 07/07/2012 None Full Exam - General 1994 Respiratory auscultation Overall: breath sounds clear bilaterally 07/07/2012 None Full Exam - General 1994 Cardiovascular auscultation of heart Overall: regular rate 07/07/2012 None Full Exam - General 1994 Cardiovascular auscultation of heart Overall: normal heart sounds 07/07/2012 None Full Exam - General 1994 Cardiovascular auscultation of heart Overall: no murmurs 07/07/2012 None Full Exam - General 1994 Integument inspection of skin Location: right foot 07/07/2012 plantar surface- ulcerated lesion- painful, callused, open and foul smelling, but no acute discharge noted Full Exam - General 1994 Abdomen abdominal exam Overall: no tenderness 07/07/2012 None Full Exam - General 1995 Abdomen abdominal exam Overall: normal bowel sounds 07/07/2012 None Full Exam - General 1995 Constitutional general appearance Overall: well developed 06/26/2012 None Full Exam - General 1995 Constitutional general appearance Overall: in no acute distress 06/26/2012 None Full Exam - General 1995 Constitutional general appearance Overall: well nourished 06/26/2012 None Full Exam - General 1995 Integument inspection of skin Location: left foot 06/26/2012 ulcer noted to medial aspect of left great toe with fibrous tissue at base of wound Full Exam - General 1995 Integument inspection of skin Rash/Lesions: ulceration 06/26/2012 None Full Exam - General 1995 Psychiatric appearance Overall: well-groomed, good eye contact 06/26/2012 None Full Exam - General 1995 Constitutional general appearance Overall: well developed 06/19/2012 None Full Exam - General 1994 Constitutional general appearance Overall: in no acute distress 06/19/2012 None Full Exam - General 1994 Constitutional general appearance Overall: well nourished 06/19/2012 None Full Exam - General 1994 Integument inspection of skin Location: left foot 06/19/2012 ulcer noted to medial aspect of left great toe with fibrous tissue at base of wound and surrounding erythema. Full Exam - General 1994 Integument inspection of skin Rash/Lesions: ulceration 06/19/2012 None Full Exam - General 1994 Psychiatric appearance Overall: well-groomed, good eye contact 06/19/2012 None Full Exam - General 1995 Constitutional general appearance Overall: well developed 06/17/2012 None Full Exam - General 1994 Constitutional general appearance Overall: in no acute distress 06/17/2012 None Full Exam - General 1995 Constitutional general appearance Overall: well nourished 06/17/2012 None Full Exam - General 1994 Eyes pupils and irises Overall: pupils equal, round, reactive to light and accomodation 06/17/2012 None Full Exam - General 1994 Respiratory respiratory effort/rhythm Overall: no retractions 06/17/2012 None Full Exam - General 1994 Respiratory respiratory effort/rhythm Overall: normal rate 06/17/2012 None Full Exam - General 1994 Cardiovascular auscultation of heart Overall: regular rate 06/17/2012 None Full Exam - General 1994 Cardiovascular auscultation of heart Overall: normal heart sounds 06/17/2012 None Full Exam - General 1994 Musculoskeletal digits and nails Overall: no clubbing 06/17/2012 None Full Exam - General 1995 Musculoskeletal digits and nails Overall: digits benign 06/17/2012 None Full Exam - General 1995 Musculoskeletal spine, ribs and pelvis Posture: kyphoscoliosis 06/17/2012 None Full Exam - General 1995 Musculoskeletal gait and station Overall: normal gait 06/17/2012 None Full Exam - General 1995 Musculoskeletal gait and station Overall: normal station 06/17/2012 None Full Exam - General 1994 Psychiatric appearance Overall: well-groomed, good eye contact 06/17/2012 None Full Exam - General 1994 Integument inspection of skin Rash/Lesions: ulceration 06/17/2012 None Full Exam - General 1995 Integument inspection of skin Location: left foot 06/17/2012 ulcer noted to medial aspect of left great toe with fibrous tissue at base of wound and surrounding erythema. Full Exam - General 1994 Respiratory auscultation Overall: breath sounds clear bilaterally 06/06/2012 None Full Exam - General 1994 Cardiovascular auscultation of heart Overall: regular rate 06/06/2012 None Full Exam - General 1994 Cardiovascular auscultation of heart Overall: normal heart sounds 06/06/2012 None Full Exam - General 1994 Musculoskeletal head and neck Overall: head atraumatic 06/06/2012 None Full Exam - General 1994 Musculoskeletal head and neck Overall: cervical spine benign 06/06/2012 None Full Exam - General 1994 Musculoskeletal digits and nails Overall: no clubbing 06/06/2012 None Full Exam - General 1994 Musculoskeletal digits and nails Overall: digits benign 06/06/2012 None Full Exam - General 1994 Musculoskeletal gait and station Overall: normal gait 06/06/2012 None Full Exam - General 1994 Musculoskeletal gait and station Overall: normal station 06/06/2012 None Full Exam - General 1994 Integument inspection of skin Overall: no rash, lesions 06/06/2012 None Full Exam - General 1994 Psychiatric orientation/consciousness Overall: oriented to person, place and time 06/06/2012 None Full Exam - General 1994 Eyes pupils and irises Overall: pupils equal, round, reactive to light and accomodation 06/06/2012 None Full Exam - General 1994 Ears/Nose/Throat lips/teeth/gingiva Teeth: partially edentulous 06/06/2012 None Full Exam - General 1994 Ears/Nose/Throat oral cavity/pharynx/larynx Overall: oral mucosa clear 06/06/2012 None Full Exam - General 1995 Ears/Nose/Throat external nose Overall: benign appearance 06/06/2012 None Full Exam - General 1995 Ears/Nose/Throat external nose Overall: no masses 06/06/2012 None Full Exam - General 1994 Ears/Nose/Throat external nose Overall: non-tender 06/06/2012 Contusion noted to right side of chin. Slight swelling noted to right cheek and slightly TTP Full Exam - General 1994 Constitutional general appearance Overall: well developed 06/06/2012 None Full Exam - General 1994 Constitutional general appearance Overall: in no acute distress 06/06/2012 None Full Exam - General 1994 Constitutional general appearance Overall: well nourished 06/06/2012 None Full Exam - General 1994 Eyes conjunctiva /eyelids Overall: conjunctiva clear 06/06/2012 None Full Exam - General 1994 Eyes conjunctiva /eyelids Overall: cornea clear 06/06/2012 None Full Exam - General 1994 Eyes conjunctiva /eyelids Overall: eyelids normal 06/06/2012 None Full Exam - General 1994 Constitutional general appearance Overall: well developed 05/20/2012 None Full Exam - General 1994 Constitutional general appearance Overall: in no acute distress 05/20/2012 None Full Exam - General 1994 Constitutional general appearance Overall: well nourished 05/20/2012 None Full Exam - General 1994 Eyes pupils and irises Overall: pupils equal, round, reactive to light and accomodation 05/20/2012 None Full Exam - General 1994 Ears/Nose/Throat oral cavity/pharynx/larynx Overall: oral mucosa clear 05/20/2012 None Full Exam - General 1994 Ears/Nose/Throat oral cavity/pharynx/larynx Overall: oropharyngeal mucosa clear 05/20/2012 None Full Exam - General 1994 Respiratory auscultation Overall: breath sounds clear bilaterally 05/20/2012 None Full Exam - General 1994 Respiratory respiratory effort/rhythm Overall: no retractions 05/20/2012 None Full Exam - General 1994 Respiratory respiratory effort/rhythm Overall: normal rate 05/20/2012 None Full Exam - General 1994 Cardiovascular auscultation of heart Overall: regular rate 05/20/2012 None Full Exam - General 1994 Cardiovascular auscultation of heart Overall: normal heart sounds 05/20/2012 None Full Exam - General 1994 Cardiovascular auscultation of heart Overall: no murmurs 05/20/2012 None Full Exam - General 1994 Musculoskeletal digits and nails Overall: no clubbing 05/20/2012 None Full Exam - General 1994 Musculoskeletal digits and nails Overall: digits benign 05/20/2012 None Full Exam - General 1994 Musculoskeletal spine, ribs and pelvis Posture: kyphoscoliosis 05/20/2012 None Full Exam - General 1995 Musculoskeletal gait and station Overall: normal gait 05/20/2012 None Full Exam - General 1994 Musculoskeletal gait and station Overall: normal station 05/20/2012 None Full Exam - General 1994 Musculoskeletal head and neck Overall: head atraumatic 05/20/2012 None Full Exam - General 1994 Musculoskeletal head and neck Overall: TMJ benign 05/20/2012 None Full Exam - General 1994 Musculoskeletal head and neck Overall: cervical spine benign 05/20/2012 None Full Exam - General 1994 Integument inspection of skin Location: left foot 05/20/2012 None Full Exam - General 1994 Integument inspection of skin Location: right foot 05/20/2012 None Full Exam - General 1994 Integument inspection of skin Rash/Lesions: ulceration 05/20/2012 None Full Exam - General 1994 Integument inspection of skin Consistency: thick 05/20/2012 hyperkeratotic lesion on left great toe and right foot, plantar surface and 3rd toe right foot - all were pared down with 15blade. Full Exam - General 1994 Integument inspection of skin Consistency: moist 05/20/2012 None Full Exam - General 1994 Neurologic gait Overall: no ataxia, no unsteadiness 05/20/2012 None Full Exam - General 1994 Psychiatric orientation/consciousness Overall: oriented to person, place and time 05/20/2012 None Full Exam - General 1994 Psychiatric mood and affect Overall: normal mood and affect 05/20/2012 None Full Exam - General 1994 Psychiatric appearance Overall: well-groomed, good eye contact 05/20/2012 None Full Exam - General 1994 Constitutional general appearance Overall: well developed 05/06/2012 None Full Exam - General 1994 Constitutional general appearance Overall: in no acute distress 05/06/2012 None Full Exam - General 1994 Constitutional general appearance Overall: well nourished 05/06/2012 None Full Exam - General 1994 Eyes pupils and irises Overall: pupils equal, round, reactive to light and accomodation 05/06/2012 None Full Exam - General 1994 Ears/Nose/Throat oral cavity/pharynx/larynx Overall: oral mucosa clear 05/06/2012 None Full Exam - General 1995 Ears/Nose/Throat oral cavity/pharynx/larynx Overall: oropharyngeal mucosa clear 05/06/2012 None Full Exam - General 1994 Respiratory auscultation Overall: breath sounds clear bilaterally 05/06/2012 None Full Exam - General 1995 Respiratory respiratory effort/rhythm Overall: no retractions 05/06/2012 None Full Exam - General 1994 Respiratory respiratory effort/rhythm Overall: normal rate 05/06/2012 None Full Exam - General 1994 Cardiovascular auscultation of heart Overall: regular rate 05/06/2012 None Full Exam - General 1994 Cardiovascular auscultation of heart Overall: normal heart sounds 05/06/2012 None Full Exam - General 1994 Cardiovascular auscultation of heart Overall: no murmurs 05/06/2012 None Full Exam - General 1994 Musculoskeletal digits and nails Overall: no clubbing 05/06/2012 None Full Exam - General 1994 Musculoskeletal digits and nails Overall: digits benign 05/06/2012 None Full Exam - General 1994 Musculoskeletal spine, ribs and pelvis Posture: kyphoscoliosis 05/06/2012 None Full Exam - General 1994 Musculoskeletal gait and station Overall: normal gait 05/06/2012 None Full Exam - General 1994 Musculoskeletal gait and station Overall: normal station 05/06/2012 None Full Exam - General 1994 Musculoskeletal head and neck Overall: head atraumatic 05/06/2012 None Full Exam - General 1994 Musculoskeletal head and neck Overall: TMJ benign 05/06/2012 None Full Exam - General 1994 Musculoskeletal head and neck Overall: cervical spine benign 05/06/2012 None Full Exam - General 1994 Integument inspection of skin Location: left foot 05/06/2012 None Full Exam - General 1994 Integument inspection of skin Location: right foot 05/06/2012 None Full Exam - General 1994 Integument inspection of skin Rash/Lesions: ulceration 05/06/2012 None Full Exam - General 1994 Integument inspection of skin Consistency: thick 05/06/2012 hyperkeratotic lesion on left great toe and right foot, plantar surface and 3rd toe right foot - all were pared down with 15blade. Full Exam - General 1994 Integument inspection of skin Consistency: moist 05/06/2012 None Full Exam - General 1994 Neurologic gait Overall: no ataxia, no unsteadiness 05/06/2012 None Full Exam - General 1994 Psychiatric orientation/consciousness Overall: oriented to person, place and time 05/06/2012 None Full Exam - General 1994 Psychiatric mood and affect Overall: normal mood and affect 05/06/2012 None Full Exam - General 1994 Psychiatric appearance Overall: well-groomed, good eye contact 05/06/2012 None Full Exam - General 1994 Constitutional general appearance Overall: well nourished 04/21/2012 None Full Exam - General 1994 Constitutional general appearance Overall: well developed 04/21/2012 None Full Exam - General 1994 Constitutional general appearance Overall: in no acute distress 04/21/2012 None Full Exam - General 1994 Eyes conjunctiva /eyelids Overall: conjunctiva clear 04/21/2012 None Full Exam - General 1994 Eyes conjunctiva /eyelids Overall: cornea clear 04/21/2012 None Full Exam - General 1994 Eyes conjunctiva /eyelids Overall: eyelids normal 04/21/2012 None Full Exam - General 1994 Eyes pupils and irises Overall: pupils equal, round, reactive to light and accomodation 04/21/2012 None Full Exam - General 1994 Ears/Nose/Throat otoscopic exam Overall: external auditory canals clear 04/21/2012 None Full Exam - General 1994 Ears/Nose/Throat otoscopic exam Overall: tympanic membranes clear 04/21/2012 None Full Exam - General 1994 Ears/Nose/Throat lips/teeth/gingiva Overall: benign lips 04/21/2012 None Full Exam - General 1994 Ears/Nose/Throat lips/teeth/gingiva Overall: no masses 04/21/2012 None Full Exam - General 1994 Ears/Nose/Throat oral cavity/pharynx/larynx Overall: oral mucosa clear 04/21/2012 None Full Exam - General 1994 Ears/Nose/Throat oral cavity/pharynx/larynx Overall: oropharyngeal mucosa clear 04/21/2012 None Full Exam - General 1994 Neck inspection of neck Overall: normal size 04/21/2012 None Full Exam - General 1994 Neck inspection of neck Overall: normal appearance 04/21/2012 None Full Exam - General 1994 Neck inspection of neck Overall: no masses 04/21/2012 None Full Exam - General 1994 Neck inspection of neck Overall: absence of swelling 04/21/2012 None Full Exam - General 1994 Neck inspection of neck Size: a normal exam 04/21/2012 None Full Exam - General 1994 Neck inspection of neck Appearance: a normal exam 04/21/2012 None Full Exam - General 1994 Respiratory auscultation Overall: breath sounds clear bilaterally 04/21/2012 None Full Exam - General 1994 Respiratory respiratory effort/rhythm Overall: no retractions 04/21/2012 None Full Exam - General 1994 Respiratory respiratory effort/rhythm Overall: normal rate 04/21/2012 None Full Exam - General 1994 Cardiovascular auscultation of heart Overall: regular rate 04/21/2012 None Full Exam - General 1994 Cardiovascular auscultation of heart Overall: normal heart sounds 04/21/2012 None Full Exam - General 1994 Cardiovascular auscultation of heart Overall: no murmurs 04/21/2012 None Full Exam - General 1994 Abdomen abdominal exam Overall: no tenderness 04/21/2012 None Full Exam - General 1994 Abdomen abdominal exam Overall: normal bowel sounds 04/21/2012 None Full Exam - General 1994 Musculoskeletal digits and nails Overall: no clubbing 04/21/2012 None Full Exam - General 1994 Musculoskeletal digits and nails Overall: digits benign 04/21/2012 None Full Exam - General 1994 Musculoskeletal spine, ribs and pelvis Posture: kyphoscoliosis 04/21/2012 None Full Exam - General 1994 Musculoskeletal gait and station Overall: normal gait 04/21/2012 None Full Exam - General 1994 Musculoskeletal gait and station Overall: normal station 04/21/2012 None Full Exam - General 1994 Musculoskeletal head and neck Overall: head atraumatic 04/21/2012 None Full Exam - General 1994 Musculoskeletal head and neck Overall: TMJ benign 04/21/2012 None Full Exam - General 1994 Musculoskeletal head and neck Overall: cervical spine benign 04/21/2012 None Full Exam - General 1994 Integument inspection of skin Location: left foot 04/21/2012 None Full Exam - General 1994 Integument inspection of skin Location: right foot 04/21/2012 None Full Exam - General 1994 Integument inspection of skin Rash/Lesions: ulceration 04/21/2012 None Full Exam - General 1994 Integument inspection of skin Consistency: thick 04/21/2012 hyperkeratotic lesion on left great toe and right foot, plantar surface and 3rd toe right foot - all were pared down with 15blade. Full Exam - General 1994 Integument inspection of skin Consistency: moist 04/21/2012 None Full Exam - General 1994 Neurologic gait Overall: no ataxia, no unsteadiness 04/21/2012 None Full Exam - General 1994 Psychiatric orientation/consciousness Overall: oriented to person, place and time 04/21/2012 None Full Exam - General 1994 Psychiatric mood and affect Overall: normal mood and affect 04/21/2012 None Full Exam - General 1994 Psychiatric appearance Overall: well-groomed, good eye contact 04/21/2012 None Full Exam - General 1994 Constitutional general appearance Overall: well nourished 04/07/2012 None Full Exam - General 1994 Constitutional general appearance Overall: well developed 04/07/2012 None Full Exam - General 1994 Constitutional general appearance Overall: in no acute distress 04/07/2012 None Full Exam - General 1994 Eyes pupils and irises Overall: pupils equal, round, reactive to light and accomodation 04/07/2012 None Full Exam - General 1994 Ears/Nose/Throat otoscopic exam Overall: external auditory canals clear 04/07/2012 None Full Exam - General 1994 Ears/Nose/Throat otoscopic exam Overall: tympanic membranes clear 04/07/2012 None Full Exam - General 1994 Ears/Nose/Throat lips/teeth/gingiva Overall: benign lips 04/07/2012 None Full Exam - General 1994 Ears/Nose/Throat lips/teeth/gingiva Overall: no masses 04/07/2012 None Full Exam - General 1994 Ears/Nose/Throat oral cavity/pharynx/larynx Overall: oral mucosa clear 04/07/2012 None Full Exam - General 1995 Ears/Nose/Throat oral cavity/pharynx/larynx Overall: oropharyngeal mucosa clear 04/07/2012 None Full Exam - General 1994 Respiratory auscultation Overall: breath sounds clear bilaterally 04/07/2012 None Full Exam - General 1994 Respiratory respiratory effort/rhythm Overall: no retractions 04/07/2012 None Full Exam - General 1994 Respiratory respiratory effort/rhythm Overall: normal rate 04/07/2012 None Full Exam - General 1994 Cardiovascular auscultation of heart Overall: regular rate 04/07/2012 None Full Exam - General 1994 Cardiovascular auscultation of heart Overall: normal heart sounds 04/07/2012 None Full Exam - General 1994 Abdomen abdominal exam Overall: no tenderness 04/07/2012 None Full Exam - General 1994 Abdomen abdominal exam Overall: normal bowel sounds 04/07/2012 None Full Exam - General 1994 Musculoskeletal head and neck Overall: head atraumatic 04/07/2012 None Full Exam - General 1994 Musculoskeletal head and neck Overall: TMJ benign 04/07/2012 None Full Exam - General 1994 Musculoskeletal head and neck Overall: cervical spine benign 04/07/2012 None Full Exam - General 1995 Musculoskeletal spine, ribs and pelvis Posture: kyphoscoliosis 04/07/2012 None Full Exam - General 1994 Neurologic gait Overall: no ataxia, no unsteadiness 04/07/2012 None Full Exam - General 1994 Psychiatric orientation/consciousness Overall: oriented to person, place and time 04/07/2012 None Full Exam - General 1994 Psychiatric mood and affect Overall: normal mood and affect 04/07/2012 None Full Exam - General 1994 Psychiatric appearance Overall: well-groomed, good eye contact 04/07/2012 None Full Exam - General 1995 Eyes conjunctiva /eyelids Overall: conjunctiva clear 04/07/2012 None Full Exam - General 1995 Eyes conjunctiva /eyelids Overall: cornea clear 04/07/2012 None Full Exam - General 1994 Eyes conjunctiva /eyelids Overall: eyelids normal 04/07/2012 None Full Exam - General 1994 Neck inspection of neck Overall: normal size 04/07/2012 None Full Exam - General 1994 Neck inspection of neck Overall: normal appearance 04/07/2012 None Full Exam - General 1994 Neck inspection of neck Overall: no masses 04/07/2012 None Full Exam - General 1994 Neck inspection of neck Overall: absence of swelling 04/07/2012 None Full Exam - General 1994 Neck inspection of neck Size: a normal exam 04/07/2012 None Full Exam - General 1994 Neck inspection of neck Appearance: a normal exam 04/07/2012 None Full Exam - General 1994 Cardiovascular auscultation of heart Overall: no murmurs 04/07/2012 None Full Exam - General 1994 Musculoskeletal digits and nails Overall: no clubbing 04/07/2012 None Full Exam - General 1994 Musculoskeletal digits and nails Overall: digits benign 04/07/2012 None Full Exam - General 1994 Musculoskeletal gait and station Overall: normal gait 04/07/2012 None Full Exam - General 1994 Musculoskeletal gait and station Overall: normal station 04/07/2012 None Full Exam - General 1994 Integument inspection of skin Location: left foot 04/07/2012 None Full Exam - General 1994 Integument inspection of skin Location: right foot 04/07/2012 None Full Exam - General 1994 Integument inspection of skin Rash/Lesions: ulceration 04/07/2012 None Full Exam - General 1994 Integument inspection of skin Consistency: moist 04/07/2012 None Full Exam - General 1994 Integument inspection of skin Consistency: thick 04/07/2012 hyperkeratotic lesion on left great toe and right foot, plantar surface and 3rd toe right foot - all were pared down with 15blade. Full Exam - General 1994 Ears/Nose/Throat otoscopic exam Overall: external auditory canals clear 03/27/2012 None Full Exam - General 1995 Ears/Nose/Throat otoscopic exam Overall: tympanic membranes clear 03/27/2012 None Full Exam - General 1995 Ears/Nose/Throat lips/teeth/gingiva Overall: benign lips 03/27/2012 None Full Exam - General 1994 Ears/Nose/Throat lips/teeth/gingiva Overall: no masses 03/27/2012 None Full Exam - General 1994 Ears/Nose/Throat oral cavity/pharynx/larynx Overall: oral mucosa clear 03/27/2012 None Full Exam - General 1994 Ears/Nose/Throat oral cavity/pharynx/larynx Overall: oropharyngeal mucosa clear 03/27/2012 None Full Exam - General 1994 Neck inspection of neck Overall: normal size 03/27/2012 None Full Exam - General 1994 Neck inspection of neck Overall: normal appearance 03/27/2012 None Full Exam - General 1994 Neck inspection of neck Overall: no masses 03/27/2012 None Full Exam - General 1994 Neck inspection of neck Overall: absence of swelling 03/27/2012 None Full Exam - General 1994 Neck inspection of neck Size: a normal exam 03/27/2012 None Full Exam - General 1994 Neck inspection of neck Appearance: a normal exam 03/27/2012 None Full Exam - General 1994 Respiratory auscultation Overall: breath sounds clear bilaterally 03/27/2012 None Full Exam - General 1994 Constitutional general appearance Overall: well developed 03/27/2012 None Full Exam - General 1994 Constitutional general appearance Overall: in no acute distress 03/27/2012 None Full Exam - General 1994 Constitutional general appearance Overall: well nourished 03/27/2012 None Full Exam - General 1994 Eyes conjunctiva /eyelids Overall: conjunctiva clear 03/27/2012 None Full Exam - General 1994 Eyes conjunctiva /eyelids Overall: cornea clear 03/27/2012 None Full Exam - General 1994 Eyes conjunctiva /eyelids Overall: eyelids normal 03/27/2012 None Full Exam - General 1994 Eyes pupils and irises Overall: pupils equal, round, reactive to light and accomodation 03/27/2012 None Full Exam - General 1994 Respiratory respiratory effort/rhythm Overall: no retractions 03/27/2012 None Full Exam - General 1995 Respiratory respiratory effort/rhythm Overall: normal rate 03/27/2012 None Full Exam - General 1995 Cardiovascular auscultation of heart Overall: regular rate 03/27/2012 None Full Exam - General 1995 Cardiovascular auscultation of heart Overall: normal heart sounds 03/27/2012 None Full Exam - General 1995 Cardiovascular auscultation of heart Overall: no murmurs 03/27/2012 None Full Exam - General 1994 Abdomen abdominal exam Overall: no tenderness 03/27/2012 None Full Exam - General 1995 Abdomen abdominal exam Overall: normal bowel sounds 03/27/2012 None Full Exam - General 1995 Musculoskeletal digits and nails Overall: no clubbing 03/27/2012 None Full Exam - General 1994 Musculoskeletal digits and nails Overall: digits benign 03/27/2012 None Full Exam - General 1994 Musculoskeletal spine, ribs and pelvis Posture: kyphoscoliosis 03/27/2012 None Full Exam - General 1994 Musculoskeletal gait and station Overall: normal gait 03/27/2012 None Full Exam - General 1994 Musculoskeletal gait and station Overall: normal station 03/27/2012 None Full Exam - General 1994 Musculoskeletal head and neck Overall: head atraumatic 03/27/2012 None Full Exam - General 1994 Musculoskeletal head and neck Overall: TMJ benign 03/27/2012 None Full Exam - General 1994 Musculoskeletal head and neck Overall: cervical spine benign 03/27/2012 None Full Exam - General 1994 Integument inspection of skin Location: left foot 03/27/2012 None Full Exam - General 1994 Integument inspection of skin Location: right foot 03/27/2012 None Full Exam - General 1994 Integument inspection of skin Rash/Lesions: ulceration 03/27/2012 None Full Exam - General 1994 Integument inspection of skin Consistency: thick 03/27/2012 hyperkeratotic lesion on left great toe and right foot, plantar surface and 3rd toe right foot - all were pared down with 15blade. Full Exam - General 1994 Integument inspection of skin Consistency: moist 03/27/2012 None Full Exam - General 1994 Neurologic gait Overall: no ataxia, no unsteadiness 03/27/2012 None Full Exam - General 1994 Psychiatric orientation/consciousness Overall: oriented to person, place and time 03/27/2012 None Full Exam - General 1994 Psychiatric mood and affect Overall: normal mood and affect 03/27/2012 None Full Exam - General 1994 Psychiatric appearance Overall: well-groomed, good eye contact 03/27/2012 None Full Exam - General 1994 Constitutional general appearance Overall: well nourished 11/22/2011 None Full Exam - General 1994 Constitutional general appearance Overall: well developed 11/22/2011 None Full Exam - General 1994 Constitutional general appearance Overall: in no acute distress 11/22/2011 None Full Exam - General 1994 Ears/Nose/Throat otoscopic exam Overall: tympanic membranes clear 11/22/2011 None Full Exam - General 1995 Ears/Nose/Throat otoscopic exam Overall: external auditory canals clear 11/22/2011 None Full Exam - General 1994 Neck inspection of neck Overall: normal size 11/22/2011 None Full Exam - General 1994 Neck inspection of neck Overall: normal appearance 11/22/2011 None Full Exam - General 1994 Neck inspection of neck Overall: no masses 11/22/2011 None Full Exam - General 1994 Neck inspection of neck Overall: absence of swelling 11/22/2011 None Full Exam - General 1994 Neck inspection of neck Size: a normal exam 11/22/2011 None Full Exam - General 1994 Neck inspection of neck Appearance: a normal exam 11/22/2011 None Full Exam - General 1994 Respiratory auscultation Overall: breath sounds clear bilaterally 11/22/2011 None Full Exam - General 1994 Cardiovascular auscultation of heart Overall: regular rate 11/22/2011 None Full Exam - General 1994 Cardiovascular auscultation of heart Overall: normal heart sounds 11/22/2011 None Full Exam - General 1994 Cardiovascular auscultation of heart Overall: no murmurs 11/22/2011 None Full Exam - General 1994 Eyes conjunctiva /eyelids Overall: conjunctiva clear 11/22/2011 None Full Exam - General 1994 Eyes conjunctiva /eyelids Overall: cornea clear 11/22/2011 None Full Exam - General 1994 Eyes conjunctiva /eyelids Overall: eyelids normal 11/22/2011 None Full Exam - General 1994 Abdomen abdominal exam Overall: no tenderness 11/22/2011 None Full Exam - General 1994 Abdomen abdominal exam Overall: normal bowel sounds 11/22/2011 None Full Exam - General 1994 Musculoskeletal head and neck Overall: cervical spine benign 11/22/2011 None Full Exam - General 1994 Musculoskeletal head and neck Overall: head atraumatic 11/22/2011 None Full Exam - General 1994 Musculoskeletal digits and nails Overall: digits benign 11/22/2011 None Full Exam - General 1994 Musculoskeletal digits and nails Overall: no clubbing 11/22/2011 None Full Exam - General 1994 Musculoskeletal gait and station Overall: normal station 11/22/2011 None Full Exam - General 1994 Musculoskeletal gait and station Overall: normal gait 11/22/2011 None Full Exam - General 1994 Integument inspection of skin Overall: no rash, lesions 11/22/2011 None Full Exam - General 1994 Psychiatric orientation/consciousness Overall: oriented to person, place and time 11/22/2011 None Full Exam - General 1994 Constitutional general appearance Overall: well nourished 09/06/2011 None Full Exam - General 1994 Constitutional general appearance Overall: well developed 09/06/2011 None Full Exam - General 1994 Constitutional general appearance Overall: in no acute distress 09/06/2011 None Full Exam - General 1994 Eyes pupils and irises Overall: pupils equal, round, reactive to light and accomodation 09/06/2011 None Full Exam - General 1994 Ears/Nose/Throat otoscopic exam Overall: external auditory canals clear 09/06/2011 None Full Exam - General 1994 Ears/Nose/Throat otoscopic exam Overall: tympanic membranes clear 09/06/2011 None Full Exam - General 1994 Ears/Nose/Throat lips/teeth/gingiva Overall: benign lips 09/06/2011 None Full Exam - General 1994 Ears/Nose/Throat lips/teeth/gingiva Overall: no masses 09/06/2011 None Full Exam - General 1994 Ears/Nose/Throat oral cavity/pharynx/larynx Overall: oral mucosa clear 09/06/2011 None Full Exam - General 1994 Ears/Nose/Throat oral cavity/pharynx/larynx Overall: oropharyngeal mucosa clear 09/06/2011 None Full Exam - General 1994 Respiratory auscultation Overall: breath sounds clear bilaterally 09/06/2011 None Full Exam - General 1994 Respiratory respiratory effort/rhythm Overall: no retractions 09/06/2011 None Full Exam - General 1994 Respiratory respiratory effort/rhythm Overall: normal rate 09/06/2011 None Full Exam - General 1994 Cardiovascular auscultation of heart Overall: regular rate 09/06/2011 None Full Exam - General 1994 Cardiovascular auscultation of heart Overall: normal heart sounds 09/06/2011 None Full Exam - General 1994 Abdomen abdominal exam Overall: no tenderness 09/06/2011 None Full Exam - General 1994 Abdomen abdominal exam Overall: normal bowel sounds 09/06/2011 None Full Exam - General 1994 Musculoskeletal head and neck Overall: head atraumatic 09/06/2011 None Full Exam - General 1994 Musculoskeletal head and neck Overall: TMJ benign 09/06/2011 None Full Exam - General 1994 Musculoskeletal head and neck Overall: cervical spine benign 09/06/2011 None Full Exam - General 1994 Musculoskeletal spine, ribs and pelvis Posture: kyphoscoliosis 09/06/2011 None Full Exam - General 1994 Neurologic gait Overall: no ataxia, no unsteadiness 09/06/2011 None Full Exam - General 1994 Psychiatric orientation/consciousness Overall: oriented to person, place and time 09/06/2011 None Full Exam - General 1994 Psychiatric mood and affect Overall: normal mood and affect 09/06/2011 None Full Exam - General 1994 Psychiatric appearance Overall: well-groomed, good eye contact 09/06/2011 None Full Exam - General 1994 Integument inspection of skin Location: diffuse 09/06/2011 None Full Exam - General 1994 Integument inspection of skin Rash/Lesions: macule 09/06/2011 None Full Exam - General 1994 Integument inspection of skin Pigmentation: hyperpigmentation 09/06/2011 None Full Exam - General 1994 Integument inspection of skin Consistency: thick 09/06/2011 None Full Exam - General 1994 Integument inspection of skin Consistency: dry 09/06/2011 None Full Exam - General Constitutional general appearance Overall: well nourished 08/28/2011 None Full Exam - General Constitutional general appearance Overall: well developed 08/28/2011 None Full Exam - General Constitutional general appearance Overall: in no acute distress 08/28/2011 None Full Exam - General Respiratory auscultation Overall: breath sounds clear bilaterally 08/28/2011 None Full Exam - General Respiratory respiratory effort/rhythm Overall: normal rate 08/28/2011 None Full Exam - General Respiratory respiratory effort/rhythm Overall: no retractions 08/28/2011 None Full Exam - General Cardiovascular auscultation of heart Rhythm: regular rhythm 08/28/2011 None Full Exam - General Cardiovascular auscultation of heart Rate: regular rate 08/28/2011 None Full Exam - General Cardiovascular auscultation of heart Murmur: previously known murmur unchanged 08/28/2011 None Full Exam - General Cardiovascular auscultation of heart Systolic murmur grade: II/ 08/28/2011 None Full Exam - General Abdomen abdominal exam Overall: no tenderness 08/28/2011 None Full Exam - General Abdomen abdominal exam Overall: normal bowel sounds 08/28/2011 None Full Exam - General Psychiatric orientation/consciousness Overall: oriented to person, place and time 08/28/2011 None Full Exam - General 1994 Constitutional general appearance Overall: well developed 07/20/2011 None Full Exam - General 1994 Constitutional general appearance Overall: in no acute distress 07/20/2011 None Full Exam - General 1994 Eyes pupils and irises Overall: pupils equal, round, reactive to light and accomodation 07/20/2011 None Full Exam - General 1994 Ears/Nose/Throat lips/teeth/gingiva Overall: benign lips 07/20/2011 None Full Exam - General 1994 Ears/Nose/Throat lips/teeth/gingiva Overall: no masses 07/20/2011 None Full Exam - General 1994 Ears/Nose/Throat oral cavity/pharynx/larynx Overall: oral mucosa clear 07/20/2011 None Full Exam - General 1994 Respiratory auscultation Overall: breath sounds clear bilaterally 07/20/2011 None Full Exam - General 1994 Respiratory respiratory effort/rhythm Overall: no retractions 07/20/2011 None Full Exam - General 1994 Respiratory respiratory effort/rhythm Overall: normal rate 07/20/2011 None Full Exam - General 1994 Cardiovascular auscultation of heart Overall: regular rate 07/20/2011 None Full Exam - General 1994 Cardiovascular auscultation of heart Overall: normal heart sounds 07/20/2011 None Full Exam - General 1994 Abdomen abdominal exam Overall: no tenderness 07/20/2011 None Full Exam - General 1994 Abdomen abdominal exam Overall: normal bowel sounds 07/20/2011 None Full Exam - General 1994 Constitutional general appearance Overall: well nourished 07/20/2011 None Full Exam - General 1994 Psychiatric orientation/consciousness Overall: oriented to person, place and time 07/20/2011 None Full Exam - General 1994 Psychiatric mood and affect Overall: normal mood and affect 07/20/2011 None Full Exam - General 1994 Psychiatric appearance Overall: well-groomed, good eye contact 07/20/2011 None Full Exam - General 1994 Cardiovascular auscultation of heart Overall: normal heart sounds 07/06/2011 None Full Exam - General 1994 Psychiatric orientation/consciousness Overall: oriented to person, place and time 07/06/2011 None Full Exam - General 1994 Constitutional general appearance Overall: well nourished 07/06/2011 None Full Exam - General 1994 Constitutional general appearance Overall: well developed 07/06/2011 None Full Exam - General 1994 Constitutional general appearance Overall: in no acute distress 07/06/2011 None Full Exam - General 1994 Eyes pupils and irises Overall: pupils equal, round, reactive to light and accomodation 07/06/2011 None Full Exam - General 1994 Ears/Nose/Throat otoscopic exam Overall: external auditory canals clear 07/06/2011 None Full Exam - General 1994 Ears/Nose/Throat otoscopic exam Overall: tympanic membranes clear 07/06/2011 None Full Exam - General 1994 Ears/Nose/Throat oral cavity/pharynx/larynx Overall: oral mucosa clear 07/06/2011 None Full Exam - General 1994 Ears/Nose/Throat oral cavity/pharynx/larynx Overall: oropharyngeal mucosa clear 07/06/2011 None Full Exam - General 1994 Respiratory auscultation Overall: breath sounds clear bilaterally 07/06/2011 None Full Exam - General 1994 Respiratory respiratory effort/rhythm Overall: normal rate 07/06/2011 None Full Exam - General 1994 Cardiovascular auscultation of heart Overall: regular rate 07/06/2011 None Full Exam - General 1994 Respiratory respiratory effort/rhythm Overall: no retractions 06/25/2011 None Full Exam - General 1994 Cardiovascular auscultation of heart Overall: regular rate 06/25/2011 None Full Exam - General 1994 Cardiovascular auscultation of heart Overall: normal heart sounds 06/25/2011 None Full Exam - General 1994 Abdomen abdominal exam Overall: no tenderness 06/25/2011 None Full Exam - General 1994 Abdomen abdominal exam Overall: normal bowel sounds 06/25/2011 None Full Exam - General 1994 Musculoskeletal head and neck Overall: cervical spine benign 06/25/2011 None Full Exam - General 1994 Musculoskeletal head and neck Overall: head atraumatic 06/25/2011 None Full Exam - General 1994 Musculoskeletal head and neck Overall: TMJ benign 06/25/2011 None Full Exam - General 1994 Musculoskeletal spine, ribs and pelvis Posture: kyphoscoliosis 06/25/2011 None Full Exam - General 1994 Psychiatric orientation/consciousness Overall: oriented to person, place and time 06/25/2011 None Full Exam - General 1994 Psychiatric mood and affect Overall: normal mood and affect 06/25/2011 None Full Exam - General 1994 Psychiatric appearance Overall: well-groomed, good eye contact 06/25/2011 None Full Exam - General 1994 Neurologic gait Overall: no ataxia, no unsteadiness 06/25/2011 None Full Exam - General 1994 Constitutional general appearance Overall: well nourished 06/25/2011 None Full Exam - General 1994 Constitutional general appearance Overall: well developed 06/25/2011 None Full Exam - General 1994 Constitutional general appearance Overall: in no acute distress 06/25/2011 None Full Exam - General 1994 Eyes pupils and irises Overall: pupils equal, round, reactive to light and accomodation 06/25/2011 None Full Exam - General 1994 Ears/Nose/Throat otoscopic exam Overall: tympanic membranes clear 06/25/2011 None Full Exam - General 1994 Ears/Nose/Throat otoscopic exam Overall: external auditory canals clear 06/25/2011 None Full Exam - General 1994 Ears/Nose/Throat lips/teeth/gingiva Overall: no masses 06/25/2011 None Full Exam - General 1994 Ears/Nose/Throat lips/teeth/gingiva Overall: benign lips 06/25/2011 None Full Exam - General 1994 Ears/Nose/Throat oral cavity/pharynx/larynx Overall: oral mucosa clear 06/25/2011 None Full Exam - General 1994 Ears/Nose/Throat oral cavity/pharynx/larynx Overall: oropharyngeal mucosa clear 06/25/2011 None Full Exam - General 1994 Respiratory auscultation Overall: breath sounds clear bilaterally 06/25/2011 None Full Exam - General 1994 Respiratory respiratory effort/rhythm Overall: normal rate 06/25/2011 None Procedures Procedure Codes Date ADMIN INFLUENZA VIRUS VAC CPT-4: G0008 07/09/2017 FLU VACC PRSV FREE INC ANTIG CPT-4: 58252 07/09/2017 VITAMIN B12 INJECTION CPT-4: J3420 03/12/2017 THER/PROPH/DIAG INJ SC/IM CPT-4: 09068 03/12/2017 ADMIN INFLUENZA VIRUS VAC CPT-4: G0008 07/19/2016 FLU VACC 4 FELIX 3 YRS PLUS IM SNOMED CT: 12288952 CPT-4: 32612 07/19/2016 URINALYSIS NONAUTO W/O SCOPE CPT-4: 92870 06/15/2016 ADMIN PNEUMOCOCCAL VACCINE Formatting Model/CDA Sections, Assigned to SNOMED CT: 82422079 CPT-4: [id number] 09/14/2015 PNEUMOCOCCAL VACC 13 FELIX IM Formatting Model/CDA Sections, Assigned to SNOMED CT: 65631032 CPT-4: 93843Iyvprqt 09/14/2015 ADMIN INFLUENZA VIRUS VAC CPT-4: G0008 07/05/2015 FLU VACC 4 FELIX 3 YRS PLUS IM Formatting Model/CDA Sections, Assigned to/Chasity Alvarado SNOMED CT: 23117048 CPT-4: 42348Vayfcki 07/05/2015 TRIAMCINOLONE ACET INJ NOS CPT-4: J3301 10/11/2014 THER/PROPH/DIAG INJ SC/IM CPT-4: 37362 10/11/2014 ROCEPHIN, PER 250 MG CPT-4: J0696 10/11/2014 ADMIN PNEUMOCOCCAL VACCINE SNOMED CT: 07729424 CPT-4: G0009 09/09/2014 Pneumococcal Polysaccharide Vaccine, 23-Valent, Ad Assigned to/Chasity Alvarado CPT-4: 57833Ndqsplt 09/09/2014 URINALYSIS NONAUTO W/O SCOPE CPT-4: 54869 06/21/2014 URINALYSIS NONAUTO W/O SCOPE CPT-4: 16474 06/16/2014 URINALYSIS NONAUTO W/O SCOPE CPT-4: 56905 05/04/2014 ROUTINE VENIPUNCTURE CPT-4: 96823 01/21/2014 ROUTINE VENIPUNCTURE CPT-4: 63152 10/22/2013 PRESCRIP TRANSMIT VIA ERX SY CPT-4: G8553 03/31/2013 TRIAMCINOLONE ACET INJ NOS CPT-4: J3301 12/18/2012 ROUTINE VENIPUNCTURE CPT-4: 62128 09/05/2012 66743 EST. PATIENT, LEVEL III CPT-4: 93900 07/29/2012 PRESCRIP TRANSMIT VIA ERX SY CPT-4: G8553 07/29/2012 TRIM SKIN LESION CPT-4 : 91513 07/17/2012 PRESCRIP TRANSMIT VIA ERX SY CPT-4: G8553 07/17/2012 PRESCRIP TRANSMIT VIA ERX SY CPT-4: G8553 07/07/2012 ROCEPHIN, PER 250 MG CPT-4: J0696 06/17/2012 PRESCRIP TRANSMIT VIA ERX SY CPT-4: G8553 06/17/2012 TRIM SKIN LESION CPT-4 : 11458 05/06/2012 TRIM SKIN LESION CPT-4 : 61994 04/21/2012 TRIM SKIN LESIONS 2 TO 4 CPT-4: 59829 04/07/2012 PRESCRIP TRANSMIT VIA ERX SY CPT-4: G8553 03/27/2012 URINALYSIS NONAUTO W/O SCOPE CPT-4: 95568 09/06/2011 URINALYSIS NONAUTO W/O SCOPE CPT-4: 35691 08/28/2011 ROUTINE VENIPUNCTURE CPT-4: 98994 08/28/2011 PRESCRIP TRANSMIT VIA ERX SY CPT-4: G8553 08/28/2011 URINALYSIS NONAUTO W/O SCOPE CPT-4: 35741 07/20/2011 PRESCRIP TRANSMIT VIA ERX SY CPT-4: G8553 07/20/2011 THER/PROPH/DIAG INJ SC/IM CPT-4: 00356 07/06/2011 TRIAMCINOLONE ACET INJ NOS CPT-4: J3301 07/06/2011 Vital Signs Date Vital 09/13/2017 Blood Pressure 1: 132/54 Code : 8480-6 BMI: 26.5 Code : 73263-3 Heart Rate 1 : 97 bpm Height: 5'3" SpO2: 99% Weight: 152 lbs 07/09/2017 Blood Pressure 1: 142/70 Code : 8480-6 BMI: 26.7 Code : 14086-7 Heart Rate 1 : 65 bpm Height: 5'3" SpO2: 98% Weight: 153 lbs 05/17/2017 Blood Pressure 1: 142/72 Code : 8480-6 Heart Rate 1: 64 bpm Height: SpO2: 74% Weight: 04/23/2017 Blood Pressure 1: 130/70 Code : 8480-6 BMI: 26.2 Code : 53872-3 Heart Rate 1 : 71 bpm Height: 5'3" SpO2: 97% Weight: 150 lbs 03/26/2017 Blood Pressure 1: 132/76 Code : 8480-6 BMI: 27.2 Code : 55129-9 Heart Rate 1 : 70 bpm Height: 5'3" SpO2: 94% Weight: 156 lbs 03/12/2017 Blood Pressure 1: 122/64 Code : 8480-6 BMI: 27.5 Code : 76521-0 Heart Rate 1 : 70 bpm Height: 5'3" SpO2: 98% Weight: 158 lbs 03/08/2017 Blood Pressure 1: 122/54 Code : 8480-6 BMI: 27.4 Code : 06369-7 Heart Rate 1 : 79 bpm Height: 5'3" SpO2: 96% Temperature: 36.8 (C) / 98.2 (F) Weight: 157 lbs 02/16/2016 Blood Pressure 1: 128/72 Code : 8480-6 BMI: 28.1 Code : 13934-9 Heart Rate 1 : 72 bpm Height: 5'3" SpO2: 99% Weight: 161 lbs 09/14/2015 Blood Pressure 1: 132/82 Code : 8480-6 BMI: 29.1 Code : 00029-7 Heart Rate 1 : 58 bpm Height: 5'3" SpO2: 98% Weight: 167 lbs 10/21/2014 Blood Pressure 1: 120/68 Code : 8480-6 BMI: 28.4 Code : 86735-3 Heart Rate 1 : 60 bpm Height: 5'3" Weight: 163 lbs 10/11/2014 Blood Pressure 1: 126/62 Code : 8480-6 BMI: 28.8 Code : 52620-0 Heart Rate 1 : 64 bpm Height: 5'3" Weight: 165 lbs 07/28/2014 Blood Pressure 1: 130/72 Code : 8480-6 BMI: 29.6 Code : 97089-6 Heart Rate 1 : 68 bpm Height: 5'3" Weight: 170 lbs 01/27/2014 Blood Pressure 1: 132/72 Code : 8480-6 BMI: 29.5 Code : 69929-2 Heart Rate 1 : 64 bpm Height: 5'3" Weight: 169 lbs 10/22/2013 Blood Pressure 1: 140/78 Code : 8480-6 BMI: 29.6 Code : 74946-3 Heart Rate 1 : 80 bpm Height: 5'3" Weight: 170 lbs 08/24/2013 Blood Pressure 1: 122/62 Code : 8480-6 BMI: 29.6 Code : 31949-2 Heart Rate 1 : 96 bpm Height: 5'3" Weight: 170 lbs 04/02/2013 Blood Pressure 1: 146/76 Code : 8480-6 Heart Rate 1: 80 bpm Weight: 03/31/2013 Blood Pressure 1: 124/64 Code : 8480-6 Heart Rate 1: 72 bpm Weight: 12/18/2012 Blood Pressure 1: 122/78 Code : 8480-6 BMI: 29.3 Code : 07487-7 Heart Rate 1 : 64 bpm Height: 5'3" Weight: 168 lbs 10/20/2012 Blood Pressure 1: 144/70 Code : 8480-6 Heart Rate 1: 68 bpm Weight: 10/16/2012 Blood Pressure 1: 106/64 Code : 8480-6 Heart Rate 1: 64 bpm Respiratory Rate : 16 bpm Weight: 168 lbs 08/13/2012 Blood Pressure 1: 132/60 Code : 8480-6 Heart Rate 1: 77 bpm Weight: 07/29/2012 Blood Pressure 1: 124/70 Code : 8480-6 Heart Rate 1: 68 bpm Weight: 162 lbs 07/17/2012 Blood Pressure 1: 136/82 Code : 8480-6 Heart Rate 1: 76 bpm Weight: 159 lbs 07/07/2012 Blood Pressure 1: 124/72 Code : 8480-6 Heart Rate 1: 68 bpm Weight: 162 lbs 06/26/2012 Blood Pressure 1: 116/68 Code : 8480-6 Heart Rate 1: 72 bpm Temperature: 36.4 (C) / 97.6 (F) 06/19/2012 Blood Pressure 1: 120/62 Code : 8480-6 Heart Rate 1: 68 bpm Weight: 164 lbs 06/17/2012 Blood Pressure 1: 128/72 Code : 8480-6 Heart Rate 1: 72 bpm Respiratory Rate : 16 bpm Temperature: 36.8 (C) / 98.3 (F) 06/06/2012 Blood Pressure 1: 138/70 Code : 8480-6 Heart Rate 1: 68 bpm Weight: 165 lbs 05/20/2012 Blood Pressure 1: 112/68 Code : 8480-6 Heart Rate 1: 68 bpm Respiratory Rate : 16 bpm Weight: 165 lbs 05/06/2012 Blood Pressure 1: 112/72 Code : 8480-6 Heart Rate 1: 72 bpm Respiratory Rate : 18 bpm Weight: 165 lbs 04/21/2012 Blood Pressure 1: 110/64 Code : 8480-6 Heart Rate 1: 70 bpm Respiratory Rate : 18 bpm SpO2: 98% Weight: 167 lbs 04/07/2012 Blood Pressure 1: 132/80 Code : 8480-6 Heart Rate 1: 68 bpm Respiratory Rate : 18 bpm Weight: 166 lbs 03/27/2012 Blood Pressure 1: 140/80 Code : 8480-6 Heart Rate 1: 64 bpm Weight: 166 lbs 11/22/2011 Blood Pressure 1: 124/70 Code : 8480-6 Heart Rate 1: 60 bpm Respiratory Rate : 16 bpm Weight: 163 lbs 09/06/2011 Blood Pressure 1: 142/78 Code : 8480-6 Heart Rate 1: 68 bpm 08/28/2011 Blood Pressure 1: 135/53 Code : 8480-6 BMI: 28.4 Code : 20847-9 Heart Rate 1 : 72 bpm Height: 5'3" Weight: 163 lbs 07/20/2011 Blood Pressure 1: 142/59 Code : 8480-6 BMI: 28.5 Code : 08347-9 Heart Rate 1 : 70 bpm Height: 5'3" Temperature: 36.6 (C) / 97.9 (F) Weight: 163 lbs 8 oz 07/06/2011 Blood Pressure 1: 128/69 Code : 8480-6 BMI: 27.8 Code : 48446-1 Heart Rate 1 : 68 bpm Height: 5'4" Temperature: 36.6 (C) / 97.8 (F) Weight: 162 lbs 06/25/2011 Blood Pressure 1: 142/70 Code : 8480-6 BMI: 28.2 Code : 04224-2 Heart Rate 1 : 68 bpm Height: 5'4" Respiratory Rate: 16 bpm Weight: 164 lbs Functional Status No Functional Status data History of Present Illness Symptom Name Status Result Effective Date Notes diabetes mellitus Quality non-insulin dependent 09/13/2017 None diabetes mellitus Glucose monitoring does not test 09/13/2017 None fatigue Limitation on Activities moderately limits activities 09/13/2017 None fatigue Frequency of Episodes daily 09/13/2017 None diabetes mellitus Severity mild 09/13/2017 None diabetes mellitus Test results HgbA1c level 6.2 09/13/2017 None diabetes mellitus Alleviating Factors diet 09/13/2017 None diabetes mellitus Exercise no exercise 09/13/2017 None diabetes mellitus Pertinent Findings Denies dehydration 09/13/2017 None diabetes mellitus Pertinent Findings Denies dizziness 09/13/2017 None diabetes mellitus Pertinent Findings Denies dyspnea 09/13/2017 None diabetes mellitus Pertinent Findings Denies nausea 09/13/2017 None foot ulcer Location Right Foot 07/09/2017 None foot ulcer Quality improving 07/09/2017 None foot ulcer Onset and Resolution ongoing 07/09/2017 None foot ulcer Onset of Symptom 2-3 weeks ago 07/09/2017 None foot ulcer Limitation on Activities restricts weight bearing activity 07/09/2017 None foot ulcer Severity moderate 07/09/2017 None foot ulcer Significant Medical Conditions diabetes mellitus 07/09/2017 None foot ulcer Pertinent Findings redness 07/09/2017 None foot ulcer Pertinent Findings Denies warmth 07/09/2017 None hypertension Quality chronic 07/09/2017 None hypertension Onset and Resolution ongoing 07/09/2017 None hypertension Onset of Symptom during adulthood 07/09/2017 None hypertension Blood Pressure Values not checking blood pressure at home 07/09/2017 None hypertension Pertinent Findings Denies dizziness 07/09/2017 None hypertension Pertinent Findings Denies dyspnea 07/09/2017 None hypertension Pertinent Findings Denies edema 07/09/2017 None diabetes mellitus Onset of Symptom onset as an adult 07/09/2017 None diabetes mellitus Quality non-insulin dependent 07/09/2017 None diabetes mellitus Pertinent Findings Denies nausea 07/09/2017 None memory loss Onset and Resolution ongoing 07/09/2017 None memory loss Onset of Symptom during adulthood 07/09/2017 None memory loss Limitation on Activities does not limit activities 07/09/2017 None memory loss Pertinent Findings Denies difficulty reading 07/09/2017 None memory loss Pertinent Findings Denies difficulty writing 07/09/2017 None memory loss Quality intermittent 07/09/2017 - mild symptoms - mostly minor "forgetfulness" hypertension Pertinent Findings Denies palpitations 07/09/2017 None blood pressure followup Quality chronic 05/17/2017 None blood pressure followup Onset and Resolution ongoing 05/17/2017 None blood pressure followup Onset of Symptom during adulthood 05/17/2017 None blood pressure followup Blood Pressure Values not checking blood pressure at home 05/17/2017 None blood pressure followup Severity mild 05/17/2017 None blood pressure followup Frequency of Episodes unchanged 05/17/2017 None blood pressure followup Significant Medical Conditions cardiac disease 05/17/2017 None blood pressure followup Triggers no known associated factors 05/17/2017 None blood pressure followup Alleviating Factors medication 05/17/2017 None foot ulcer Location Right Foot 04/23/2017 None foot ulcer Quality improving 04/23/2017 None foot ulcer Onset and Resolution ongoing 04/23/2017 None foot ulcer Onset of Symptom 2-3 weeks ago 04/23/2017 None foot ulcer Limitation on Activities restricts weight bearing activity 04/23/2017 None foot ulcer Severity moderate 04/23/2017 None foot ulcer Significant Medical Conditions diabetes mellitus 04/23/2017 None foot ulcer Pertinent Findings redness 04/23/2017 None foot ulcer Pertinent Findings Denies warmth 04/23/2017 None foot ulcer Location Right Foot 03/26/2017 None foot ulcer Quality improving 03/26/2017 None foot ulcer Onset and Resolution ongoing 03/26/2017 None foot ulcer Onset of Symptom 2-3 weeks ago 03/26/2017 None foot ulcer Limitation on Activities restricts weight bearing activity 03/26/2017 None foot ulcer Severity moderate 03/26/2017 None foot ulcer Significant Medical Conditions diabetes mellitus 03/26/2017 None foot ulcer Pertinent Findings redness 03/26/2017 None foot ulcer Pertinent Findings warmth 03/26/2017 None swelling Quality acute 03/12/2017 None swelling Onset and Resolution sudden in onset 03/12/2017 None swelling Onset of Symptom 2-3 weeks ago 03/12/2017 None swelling Triggers no known triggers 03/12/2017 None swelling Alleviating Factors no alleviating factors 03/12/2017 None swelling Pertinent Findings dizziness 03/12/2017 None swelling Pertinent Findings Denies fever 03/12/2017 None swelling Pertinent Findings Denies pain 03/12/2017 None swelling Pertinent Findings Denies tenderness 03/12/2017 None foot ulcer Location Right Foot 03/12/2017 None foot ulcer Onset of Symptom 2-3 weeks ago 03/12/2017 None foot ulcer Limitation on Activities restricts weight bearing activity 03/12/2017 None foot ulcer Pertinent Findings redness 03/12/2017 None foot ulcer Pertinent Findings warmth 03/12/2017 None swelling Quality improving 03/12/2017 None foot ulcer Quality improving 03/12/2017 None foot ulcer Onset and Resolution ongoing 03/12/2017 None foot ulcer Severity moderate 03/12/2017 None foot ulcer Significant Medical Conditions diabetes mellitus 03/12/2017 None swelling Location-Major on the feet 03/08/2017 None swelling Location-Extremities on the right foot 03/08/2017 None swelling Quality acute 03/08/2017 None swelling Color erythematous 03/08/2017 None swelling Onset and Resolution sudden in onset 03/08/2017 None swelling Onset of Symptom 2-3 weeks ago 03/08/2017 None swelling Alleviating Factors no alleviating factors 03/08/2017 None swelling Triggers no known triggers 03/08/2017 None swelling Pertinent Findings dizziness 03/08/2017 None swelling Pertinent Findings Denies tenderness 03/08/2017 None swelling Pertinent Findings Denies pain 03/08/2017 None swelling Pertinent Findings Denies fever 03/08/2017 None foot ulcer Location Right Foot 03/08/2017 None foot ulcer Quality worsening 03/08/2017 None foot ulcer Onset of Symptom 2-3 weeks ago 03/08/2017 None foot ulcer Limitation on Activities restricts weight bearing activity 03/08/2017 None foot ulcer Pertinent Findings redness 03/08/2017 None foot ulcer Pertinent Findings warmth 03/08/2017 None dysuria Quality acute 02/16/2016 None dysuria Quality burning 02/16/2016 None dysuria Onset and Resolution sudden in onset 02/16/2016 None dysuria Limitation on Activities does not limit urination 02/16/2016 None dysuria Triggers no known associated factors 02/16/2016 None dysuria Pertinent Findings Denies chills 02/16/2016 None dysuria Pertinent Findings Denies fever 02/16/2016 None dysuria Pertinent Findings Denies nausea 02/16/2016 None dysuria Pertinent Findings urinary urgency 02/16/2016 None dysuria Pertinent Findings Denies vomiting 02/16/2016 None hypertension Quality chronic 09/14/2015 None hypertension Onset and Resolution ongoing 09/14/2015 None hypertension Onset of Symptom during adulthood 09/14/2015 None hypertension Blood Pressure Values not checking blood pressure at home 09/14/2015 None hypertension Pertinent Findings Denies dizziness 09/14/2015 None hypertension Pertinent Findings Denies dyspnea 09/14/2015 None hypertension Pertinent Findings Denies edema 09/14/2015 None diabetes mellitus Onset of Symptom onset as an adult 09/14/2015 None diabetes mellitus Quality non-insulin dependent 09/14/2015 None diabetes mellitus Pertinent Findings Denies nausea 09/14/2015 None memory loss Onset and Resolution ongoing 09/14/2015 None memory loss Onset of Symptom during adulthood 09/14/2015 None memory loss Limitation on Activities does not limit activities 09/14/2015 None memory loss Pertinent Findings Denies difficulty reading 09/14/2015 None memory loss Pertinent Findings Denies difficulty writing 09/14/2015 None memory loss Quality intermittent 09/14/2015 - mild symptoms - mostly minor "forgetfulness" hypertension Quality stable 09/14/2015 None diabetes mellitus Test results Pt not checking blood glucose readings at home 09/14/2015 None hypertension Quality chronic 10/21/2014 None hypertension Onset and Resolution ongoing 10/21/2014 None hypertension Onset of Symptom during adulthood 10/21/2014 None hypertension Blood Pressure Values not checking blood pressure at home 10/21/2014 None hypertension Pertinent Findings Denies dizziness 10/21/2014 None hypertension Pertinent Findings Denies dyspnea 10/21/2014 None hypertension Pertinent Findings Denies edema 10/21/2014 None diabetes mellitus Onset of Symptom onset as an adult 10/21/2014 None diabetes mellitus Quality non-insulin dependent 10/21/2014 None diabetes mellitus Pertinent Findings Denies nausea 10/21/2014 None memory loss Onset and Resolution ongoing 10/21/2014 None memory loss Onset of Symptom during adulthood 10/21/2014 None memory loss Limitation on Activities does not limit activities 10/21/2014 None memory loss Pertinent Findings Denies difficulty reading 10/21/2014 None memory loss Pertinent Findings Denies difficulty writing 10/21/2014 None memory loss Quality intermittent 10/21/2014 - mild symptoms - mostly minor "forgetfulness" cough Onset of Symptom 3 days ago 10/21/2014 None cough Pertinent Findings Denies dyspnea 10/21/2014 None cough Pertinent Findings Denies fever 10/21/2014 None cough Pertinent Findings Denies nasal congestion 10/21/2014 None cough Pertinent Findings Denies sputum production 10/21/2014 None hypertension Quality chronic 10/11/2014 None hypertension Onset and Resolution ongoing 10/11/2014 None hypertension Onset of Symptom during adulthood 10/11/2014 None hypertension Blood Pressure Values not checking blood pressure at home 10/11/2014 None hypertension Pertinent Findings Denies dizziness 10/11/2014 None hypertension Pertinent Findings Denies dyspnea 10/11/2014 None hypertension Pertinent Findings Denies edema 10/11/2014 None diabetes mellitus Onset of Symptom onset as an adult 10/11/2014 None diabetes mellitus Quality non-insulin dependent 10/11/2014 None diabetes mellitus Pertinent Findings Denies nausea 10/11/2014 None memory loss Onset and Resolution ongoing 10/11/2014 None memory loss Onset of Symptom during adulthood 10/11/2014 None memory loss Limitation on Activities does not limit activities 10/11/2014 None memory loss Pertinent Findings Denies difficulty reading 10/11/2014 None memory loss Pertinent Findings Denies difficulty writing 10/11/2014 None memory loss Quality intermittent 10/11/2014 - mild symptoms - mostly minor "forgetfulness" cough Onset of Symptom 3 days ago 10/11/2014 None cough Pertinent Findings Denies dyspnea 10/11/2014 None cough Pertinent Findings Denies fever 10/11/2014 None cough Pertinent Findings nasal congestion 10/11/2014 None cough Pertinent Findings sputum production 10/11/2014 light green hypertension Quality chronic 07/28/2014 None hypertension Onset and Resolution ongoing 07/28/2014 None hypertension Onset of Symptom during adulthood 07/28/2014 None hypertension Blood Pressure Values not checking blood pressure at home 07/28/2014 None hypertension Pertinent Findings Denies dizziness 07/28/2014 None hypertension Pertinent Findings Denies dyspnea 07/28/2014 None hypertension Pertinent Findings Denies edema 07/28/2014 None hypertension Pertinent Findings Denies palpitations 07/28/2014 None diabetes mellitus Onset of Symptom onset as an adult 07/28/2014 None diabetes mellitus Quality non-insulin dependent 07/28/2014 None diabetes mellitus Pertinent Findings Denies nausea 07/28/2014 None memory loss Onset and Resolution ongoing 07/28/2014 None memory loss Pertinent Findings Denies difficulty reading 07/28/2014 None memory loss Pertinent Findings Denies difficulty writing 07/28/2014 None memory loss Onset of Symptom during adulthood 07/28/2014 None memory loss Limitation on Activities does not limit activities 07/28/2014 None memory loss Quality intermittent 07/28/2014 - mild symptoms - mostly minor "forgetfulness" hypertension Blood Pressure Values not checking blood pressure at home 01/27/2014 None hypertension Pertinent Findings Denies dizziness 01/27/2014 None hypertension Pertinent Findings Denies dyspnea 01/27/2014 None hypertension Pertinent Findings Denies edema 01/27/2014 None hypertension Pertinent Findings Denies palpitations 01/27/2014 None diabetes mellitus Test results Pt not checking blood glucose readings at home 01/27/2014 None diabetes mellitus Pertinent Findings Denies nausea 01/27/2014 None hypertension Quality chronic 01/27/2014 None hypertension Onset and Resolution ongoing 01/27/2014 None hypertension Onset of Symptom during adulthood 01/27/2014 None diabetes mellitus Onset of Symptom onset as an adult 01/27/2014 None diabetes mellitus Quality non-insulin dependent 01/27/2014 None diabetes mellitus Quality non-insulin dependent 10/22/2013 None diabetes mellitus Quality chronic 10/22/2013 None diabetes mellitus Glucose monitoring does not test 10/22/2013 None diabetes mellitus Severity mild 10/22/2013 None diabetes mellitus Test results Pt not checking blood glucose readings at home 10/22/2013 None diabetes mellitus Nutrition regular diet 10/22/2013 None diabetes mellitus Exercise no exercise 10/22/2013 None diabetes mellitus Onset of Symptom onset as an adult 10/22/2013 None Hospital Follow Up _ 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 patient is in walking boot-see's dr. das this afternoon to follow up on foot. 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 None Hospital Follow Up Onset and Resolution ongoing 08/24/2013 None foot ulcer Location Right Foot 04/02/2013 None foot ulcer Quality sharp pain 04/02/2013 None foot ulcer Onset and Resolution gradual in onset 04/02/2013 None foot ulcer Onset of Symptom 1 months ago 04/02/2013 None foot ulcer Severity moderate 04/02/2013 None foot ulcer Pertinent Findings Denies bruising 04/02/2013 None foot ulcer Pertinent Findings Denies limping 04/02/2013 None foot ulcer Pertinent Findings plantar pain 04/02/2013 None foot ulcer Pertinent Findings warmth 04/02/2013 None foot ulcer Location Right Foot 03/31/2013 None foot ulcer Quality sharp pain 03/31/2013 None foot ulcer Quality worsening 03/31/2013 None foot ulcer Onset and Resolution gradual in onset 03/31/2013 None foot ulcer Onset of Symptom 1 months ago 03/31/2013 None foot ulcer Pertinent Findings Denies bruising 03/31/2013 None foot ulcer Pertinent Findings Denies limping 03/31/2013 None foot ulcer Pertinent Findings plantar pain 03/31/2013 None foot ulcer Pertinent Findings warmth 03/31/2013 None foot ulcer Severity moderate 03/31/2013 None rash Location-Major on the upper body 12/18/2012 None rash Location-Major on the back 12/18/2012 None rash Quality acute None rash Quality burning 12/18/2012 None rash Quality pruritic 12/18/2012 None rash Quality uncomfortable 12/18/2012 None rash Pertinent Findings itching 12/18/2012 None rash Pertinent Findings tenderness 12/18/2012 None rash Triggers no known triggers 12/18/2012 None rash Color pink 2012 None rash Onset and Resolution sudden in onset 12/18/2012 None rash Onset of Symptom 2 days ago 12/18/2012 None rash Alleviating Factors no alleviating factors 12/18/2012 used hydrocortisone ointment and an allergy pill-no relief foot ulcer Location left foot 10/20/2012 None foot ulcer Location Right Foot 10/20/2012 None foot ulcer Onset and Resolution ongoing 10/20/2012 None foot ulcer Onset of Symptom 2 weeks ago 10/20/2012 None foot ulcer Pertinent Findings redness 10/20/2012 None foot ulcer Location left foot 10/16/2012 None foot ulcer Location Right Foot 10/16/2012 None foot ulcer Onset of Symptom 1 weeks ago 10/16/2012 None foot ulcer Onset and Resolution ongoing 10/16/2012 None foot ulcer Pertinent Findings redness 10/16/2012 None foot ulcer Onset of Symptom _ months ago 08/13/2012 None foot ulcer Limitation on Activities allows weight bearing activity 08/13/2012 None foot ulcer Severity mild 08/13/2012 None foot ulcer Onset and Resolution ongoing 08/13/2012 patient states she thinks her ulcer is resolved. foot ulcer Quality chronic 08/13/2012 callous on right foot, pressure area left 2nd toe foot ulcer Alleviating Factors superficial paring 08/13/2012 None foot ulcer Exacerbating Factors activity 08/13/2012 None foot ulcer Pertinent Findings Denies bruising 08/13/2012 None foot ulcer Pertinent Findings Denies instability 08/13/2012 None foot ulcer Pertinent Findings Denies limping 08/13/2012 None foot ulcer Pertinent Findings Denies numbness 08/13/2012 None foot ulcer Pertinent Findings Denies plantar pain 08/13/2012 None foot ulcer Pertinent Findings Denies stiffness 08/13/2012 None foot ulcer Pertinent Findings Denies tingling 08/13/2012 None foot ulcer Pertinent Findings Denies warmth 08/13/2012 None foot ulcer Location left foot 08/13/2012 big toe- surgical site foot ulcer Location Right Foot 08/13/2012 plantar surface ulcer/ painful lesion foot ulcer Quality improving 08/13/2012 None foot ulcer Pertinent Findings redness 08/13/2012 None foot ulcer Location left foot 07/29/2012 big toe- surgical site foot ulcer Location Right Foot 07/29/2012 plantar surface ulcer/ painful lesion foot ulcer Quality improving 07/29/2012 None foot ulcer Limitation on Activities allows weight bearing activity 07/29/2012 None foot ulcer Severity mild 07/29/2012 None foot ulcer Exacerbating Factors activity 07/29/2012 None foot ulcer Pertinent Findings redness 07/29/2012 None foot ulcer Pertinent Findings Denies warmth 07/29/2012 None foot ulcer Location left foot 07/17/2012 big toe- surgical site foot ulcer Location Right Foot 07/17/2012 plantar surface ulcer/ painful lesion foot ulcer Quality improving 07/17/2012 None foot ulcer Limitation on Activities allows weight bearing activity 07/17/2012 None foot ulcer Severity mild 07/17/2012 None foot ulcer Exacerbating Factors activity 07/17/2012 None foot ulcer Pertinent Findings redness 07/17/2012 None foot ulcer Pertinent Findings Denies warmth 07/17/2012 None foot ulcer Location left foot 07/07/2012 big toe- surgical site foot ulcer Limitation on Activities allows weight bearing activity 07/07/2012 None foot ulcer Severity mild 07/07/2012 None foot ulcer Exacerbating Factors activity 07/07/2012 None foot ulcer Pertinent Findings redness 07/07/2012 None foot ulcer Pertinent Findings Denies warmth 07/07/2012 None foot ulcer Quality improving 07/07/2012 None foot ulcer Location Right Foot 07/07/2012 plantar surface ulcer/ painful lesion foot ulcer Location left foot 06/26/2012 None foot ulcer Quality worsening 06/26/2012 left great toe and 2nd left toe foot ulcer Limitation on Activities allows weight bearing activity 06/26/2012 None foot ulcer Severity mild 06/26/2012 None foot ulcer Exacerbating Factors activity 06/26/2012 None foot ulcer Pertinent Findings redness 06/26/2012 None foot ulcer Pertinent Findings Denies warmth 06/26/2012 None foot ulcer Location left foot 06/17/2012 None foot ulcer Quality worsening 06/17/2012 left great toe and 2nd left toe foot ulcer Limitation on Activities allows weight bearing activity 06/17/2012 None foot ulcer Severity mild 06/17/2012 None foot ulcer Exacerbating Factors activity 06/17/2012 None foot ulcer Pertinent Findings redness 06/17/2012 None foot ulcer Pertinent Findings Denies warmth 06/17/2012 None ecchymosis Location on the chin 06/06/2012 None ecchymosis Quality acute 06/06/2012 None ecchymosis Onset and Resolution ongoing 06/06/2012 None ecchymosis Onset of Symptom 1 days ago 06/06/2012 None ecchymosis Frequency of Episodes unchanged 06/06/2012 None hypertension Quality chronic 05/20/2012 None hypertension Onset and Resolution ongoing 05/20/2012 None hypertension Onset of Symptom during adulthood 05/20/2012 None hypertension Blood Pressure Values patient checking blood pressure at home - did not bring in readings 05/20/2012 None hypertension Severity mild 05/20/2012 None hypertension Alleviating Factors medication 05/20/2012 None hypertension Exacerbating Factors change in dietary habits 05/20/2012 None hypertension Exacerbating Factors stress 05/20/2012 None hypertension Pertinent Findings Denies anxiety 05/20/2012 None hypertension Significant Medical Conditions diabetes 05/20/2012 None hypertension Triggers no known associated factors 05/20/2012 None foot ulcer Quality chronic 05/06/2012 None foot ulcer Onset and Resolution ongoing 05/06/2012 None foot ulcer Pertinent Findings redness 05/06/2012 None foot ulcer Exacerbating Factors activity 05/06/2012 None foot ulcer 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 05/06/2012 None foot ulcer Severity moderate 05/06/2012 None foot ulcer Limitation on Activities allows weight bearing activity 05/06/2012 None sores Quality chronic 05/06/2012 None sores Onset and Resolution ongoing 05/06/2012 None sores Limitation on Activities does not limit activities 05/06/2012 None hypertension Quality chronic 04/21/2012 None hypertension Onset and Resolution ongoing 04/21/2012 None hypertension Blood Pressure Values not checking blood pressure at home 04/21/2012 None hypertension Blood Pressure Values patient checking blood pressure at home - did not bring in readings 04/21/2012 None hypertension Severity mild 04/21/2012 None hypertension Alleviating Factors medication 04/21/2012 None hypertension Exacerbating Factors change in dietary habits 04/21/2012 None hypertension Pertinent Findings Denies anxiety 04/21/2012 None sores Location-Extremities on the left ( 1st) toe 04/21/2012 None sores Location-Extremities on the right sole 04/21/2012 None sores Quality chronic 04/21/2012 None sores Color flesh-colored 04/21/2012 None sores Onset and Resolution ongoing 04/21/2012 None sores Limitation on Activities does not limit activities 04/21/2012 None hypertension Blood Pressure Values not checking blood pressure at home 04/07/2012 None hypertension Quality chronic 04/07/2012 None diabetes mellitus Test results Pt not checking blood glucose readings at home 04/07/2012 None hypertension Onset and Resolution ongoing 04/07/2012 None hypertension Onset of Symptom during adulthood 04/07/2012 None hypertension Severity mild 04/07/2012 None hypertension Alleviating Factors medication 04/07/2012 None hypertension Blood Pressure Values patient checking blood pressure at home - did not bring in readings 04/07/2012 None hypertension Exacerbating Factors change in dietary habits 04/07/2012 None hypertension Exacerbating Factors stress 04/07/2012 None hypertension Pertinent Findings Denies anxiety 04/07/2012 None diabetes mellitus Quality non-insulin dependent 04/07/2012 None diabetes mellitus Pertinent Findings Denies dizziness 04/07/2012 None diabetes mellitus Pertinent Findings Denies dyspnea 04/07/2012 None diabetes mellitus Pertinent Findings Denies nausea 04/07/2012 None diabetes mellitus Nutrition regular diet 04/07/2012 None diabetes mellitus Exercise no exercise 04/07/2012 None hypertension Quality chronic 03/27/2012 None hypertension Onset and Resolution ongoing 03/27/2012 None hypertension Blood Pressure Values patient checking blood pressure at home - did not bring in readings 03/27/2012 None skin lesion Quality fixed 03/27/2012 None skin lesion Quality tender 03/27/2012 lt great toe, ball of right foot hypertension Onset of Symptom during adulthood 03/27/2012 None hypertension Blood Pressure Values not checking blood pressure at home 03/27/2012 None hypertension Severity mild 03/27/2012 None hypertension Alleviating Factors medication 03/27/2012 None hypertension Exacerbating Factors change in dietary habits 03/27/2012 None hypertension Exacerbating Factors stress 03/27/2012 None hypertension Pertinent Findings Denies anxiety 03/27/2012 None hypertension Quality chronic 11/22/2011 None hypertension Onset and Resolution ongoing 11/22/2011 None hypertension Blood Pressure Values patient checking blood pressure at home - did not bring in readings 11/22/2011 None hypertension Severity mild 11/22/2011 None hypertension Alleviating Factors medication 11/22/2011 None hypertension Exacerbating Factors stress 11/22/2011 None hypertension Exacerbating Factors change in dietary habits 11/22/2011 None hypertension Pertinent Findings Denies anxiety 11/22/2011 None dysuria Onset and Resolution resolved 09/06/2011 None new lesion Location-Trunk on the mid back 09/06/2011 one mid back new lesion Location-Trunk on the right side of the back 09/06/2011 1 lower rt side of back new lesion Location-Extremities on the right wrist 09/06/2011 2 new lesion Location-Extremities on the right shoulder 09/06/2011 3 new lesion Location-Extremities on the right forearm 09/06/2011 1 urinary urgency Onset of Symptom 4 days ago 08/28/2011 None urinary frequency Onset of Symptom 4 days ago 08/28/2011 None dysuria Quality acute 08/28/2011 None dysuria Quality burning 08/28/2011 None dysuria Onset and Resolution ongoing 08/28/2011 None dysuria Onset of Symptom 4 days ago 08/28/2011 None dysuria Frequency of Episodes increasing 08/28/2011 None dysuria Limitation on Activities does not limit urination 08/28/2011 None dysuria Significant Medical Conditions recurrent urinary tract infections 08/28/2011 None dysuria Triggers no known associated factors 08/28/2011 None urinary frequency Quality acute 08/28/2011 None urinary frequency Onset and Resolution ongoing 08/28/2011 None urinary frequency Limitation on Activities does not limit activities 08/28/2011 None urinary frequency Frequency of Episodes increasing 08/28/2011 None urinary frequency Triggers no known associated factors 08/28/2011 None urinary frequency Significant Medical Conditions urinary tract infections 08/28/2011 None urinary urgency Quality acute 08/28/2011 None urinary urgency Onset and Resolution sudden in onset 08/28/2011 None urinary urgency Limitation on Activities does not limit activities 08/28/2011 None urinary urgency Frequency of Episodes increasing 08/28/2011 None urinary urgency Significant Medical Conditions urinary tract infections 08/28/2011 None urinary urgency Triggers no known associated factors. 08/28/2011 She she just finished an antibiotic for a UTI but has symtoms again. States she did notice some improvement while on the antibiotic but now the symptoms are back. urinary frequency Quality acute 07/20/2011 None urinary frequency Onset and Resolution sudden in onset 07/20/2011 None urinary frequency Onset of Symptom 1 days ago 07/20/2011 None urinary urgency Quality acute 07/20/2011 None urinary urgency Onset and Resolution sudden in onset 07/20/2011 None urinary urgency Onset of Symptom 1 days ago 07/20/2011 None dysuria Quality acute 07/20/2011 None dysuria Quality burning 07/20/2011 None dysuria Onset and Resolution sudden in onset 07/20/2011 None dysuria Onset of Symptom 1 days ago 07/20/2011 None dysuria Limitation on Activities does not limit urination 07/20/2011 None dysuria Frequency of Episodes increasing 07/20/2011 None cough Location in the throat 07/06/2011 None cough Quality acute None cough Onset and Resolution ongoing 07/06/2011 None cough Limitation on Activities does not limit activities 07/06/2011 None cough Frequency of Episodes increasing 07/06/2011 None cough Onset of Symptom 2 weeks ago 07/06/2011 None hypertension Quality chronic 06/25/2011 None hypertension Onset and Resolution ongoing 06/25/2011 None hypertension Onset of Symptom during adulthood 06/25/2011 None hypertension Blood Pressure Values not checking blood pressure at home 06/25/2011 None hypertension Severity mild 06/25/2011 None hypertension Alleviating Factors medication 06/25/2011 None Advance Directives No Advance Directive data Encounters Encounter Performer Location Codes Date ([id number]) 21120 EST. 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 PATIENT, LEVEL IV Diagnosis: Type 2 diabetes mellitus with hyperglycemia[ICD10: E11.65] Diagnosis: Essential (primary) hypertension[ICD10: I10] Diagnosis: Vitamin B12 deficiency anemia, unspecified[ICD10: D51.9] Diagnosis: Encounter for immunization[ICD10: Z23] Opal Guerra MD, [facility] CPT-4: 57917 07/09/[id number]) 94859 EST. 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 PATIENT, LEVEL IV Diagnosis: Type 2 diabetes mellitus with hyperglycemia[ICD10: E11.65] Diagnosis: Cellulitis of right lower limb[ICD10: L03.115] Diagnosis: Vitamin B12 deficiency anemia, unspecified[ICD10: D51.9] Opal Guerra MD , [facility] CPT-4: 53000 03/12/2017 ([id number]) 40922 EST. PATIENT, LEVEL IV Diagnosis: Cellulitis of right lower limb[ICD10: L03.115] Diagnosis: Type 2 diabetes mellitus with hyperglycemia[ICD10: E11.65] Diagnosis: Essential (primary) hypertension[ICD10: I10] Diagnosis: Mild cognitive impairment, so stated[ICD10: G31.84] Opal Guerra MD, [facility] CPT-4: 89755 03/08/2017 20173 EST. PATIENT, LEVEL IV Diagnosis: Dysuria[ICD10: R30.0] Maru Guerra MD, [facility] CPT-4: 17905 02/16/2016 ([id number]) 61190 EST. PATIENT, LEVEL IV Diagnosis: Type 2 diabetes mellitus with hyperglycemia[ICD10: E11.65] Diagnosis: Essential (primary) hypertension[ICD10: I10] Diagnosis: Mixed hyperlipidemia[ICD10: E78.2] Diagnosis: Encounter for immunization[ICD10: Z23] Frida Guerra MD, [facility] CPT-4: 17715 09/14/2015 ([id number]) 74579 EST. PATIENT, LEVEL IV Diagnosis: ESSENTIAL HYPERTENSION[ICD9: 401.9] Diagnosis: DIABETES TYPE II[ICD9: 250.00] Diagnosis: MCI (mild cognitive impairment)[ICD9: 331.83] Frida Guerra MD, [facility] CPT-4: 02638 10/21/2014 ([id number]) 00653 EST. PATIENT, LEVEL IV Diagnosis: ESSENTIAL HYPERTENSION[ICD9: 401.9] Diagnosis: Diabetes mellitus[ICD9: 250.00] Diagnosis: HYPERLIPIDEMIA[ICD9: 272.4] Frida Guerra MD, [facility] CPT- 4: 91383 10/11/2014 ([id number]) 98728 EST. PATIENT, LEVEL IV Diagnosis: ESSENTIAL HYPERTENSION[SNOMED: 56702799] Diagnosis: Diabetes mellitus[SNOMED: 488353344] Diagnosis: Mild cognitive impairment[ICD9: 331.83] Frida Guerra MD, [facility] CPT-4: 11300 07/28/2014 ([id number]) 92343 EST. PATIENT, LEVEL IV Diagnosis: Diabetes mellitus[SNOMED: 522712337] Diagnosis: ESSENTIAL HYPERTENSION[SNOMED: 77028446] Frida Guerra MD, [facility] CPT-4: 54740 01/27/2014 ([id number]) 76574 EST. PATIENT, LEVEL III Diagnosis: Diabetes mellitus[SNOMED: 051741421] Diagnosis: Dietary counseling and surveillance[ICD9: V65.3] Opal Guerra MD, [facility] CPT-4: 58924 10/22/2013 ([id number]) 66204 EST. PATIENT, LEVEL IV Diagnosis: ESSENTIAL HYPERTENSION[SNOMED: 08146152] Diagnosis: DIABETES TYPE II[SNOMED: 383958641] Frida Guerra MD, [facility] CPT-4: 59157 08/24/2013 ([id number]) Miscellaneous no charge Diagnosis: CELLULITIS, TOE[ICD9: 681.10] Frida Guerra MD, [facility] CPT- 4: 52222 04/02/2013 ([id number]) 85152 EST. PATIENT, LEVEL III Diagnosis: CELLULITIS, TOE[ICD9: 681.10] Diagnosis: ULCER OTHER PART OF FOOT[ICD9: 707.15] Frida Guerra MD, [facility] CPT-4: 22253 03/31/2013 ([id number]) 66533 EST. PATIENT, LEVEL III Diagnosis: Rash[ICD9: 782.1] Opal Guerra MD, [facility] CPT-4: 48820 12/18/2012 ([id number]) Miscellaneous no charge Diagnosis: CHRONIC SKIN ULCER NEC[ICD9: 707.8] Diagnosis: CELLULITIS, TOE[ICD9: 681.10] Diagnosis: ULCER OTHER PART OF FOOT[ICD9: 707.15] Frida Guerra MD, [facility] CPT-4: 08526 10/20/2012 ([id number]) 15899 EST. PATIENT, LEVEL IV Diagnosis: ULCER OTHER PART OF FOOT[ICD9: 707.15] Diagnosis: CELLULITIS, TOE[ICD9: 681.10] Diagnosis: CHRONIC SKIN ULCER NEC[ICD9: 707.8] Friad Guerra MD [facility] CPT-4: 01053 10/16/2012 ([id number]) Miscellaneous no charge Diagnosis: CHRONIC SKIN ULCER[ICD9: 707.9] Diagnosis: CORNS AND CALLOSITIES[ICD9: 700] Frida Guerra MD [facility] CPT-4: 48899 08/13/2012 24207 EST. PATIENT, LEVEL III Diagnosis: CELLULITIS OF FOOT[ICD9: 682.7] Diagnosis: Callous ulcer[ICD9: 707.8] Diagnosis: CHRONIC SKIN ULCER[ICD9: 707.9] Frida Guerra MD [facility] CPT- 4: 43444 07/17/2012 ([id number]) 95318 EST. PATIENT, LEVEL III Diagnosis: Cellulitis of foot[ICD9: 682.7] Diagnosis: Callous ulcer[ICD9: 707.8] Frida Guerra MD [facility] CPT- 4: 15581 07/07/2012 ([id number]) 02939 EST. PATIENT, LEVEL III Diagnosis: ULCER OTHER PART OF FOOT[ICD9: 707.15] Frida Guerra MD [facility] CPT-4: 27586 06/26/2012 Miscellaneous no charge Diagnosis: CELLULITIS, TOE[ICD9: 681.10] Frida Guerra MD [facility] CPT- 4: 50894 06/19/2012 ([id number]) 87440 EST. PATIENT, LEVEL III Diagnosis: Cellulitis of toe[ICD9: 681.10] Diagnosis: ULCER OTHER PART OF FOOT[ICD9: 707.15] Frida Guerra MD [facility] CPT-4: 21487 06/17/2012 ([id number]) 56728 EST. PATIENT, LEVEL III Diagnosis: Facial contusion[ICD9: 920] Diagnosis: Facial pain[ICD9: 784.0] Diagnosis: Fall from slipping[ICD9: E885.9] Opal Guerra MD [facility] CPT-4: 20582 06/06/2012 ([id number]) 26319 EST. PATIENT, LEVEL IV Diagnosis: ESSENTIAL HYPERTENSION[SNOMED: 60544422] Diagnosis: CHRONIC OSTEOMYELITIS, ANKLE[ICD9: 730.17] Frida Guerra MD [facility] CPT-4: 40118 05/20/2012 ([id number]) 91455 EST. PATIENT, LEVEL III Diagnosis: ULCER OTHER PART OF FOOT[ICD9: 707.15] Frida Guerra MD [facility] CPT-4: 67525 05/06/2012 ([id number]) 33472 EST. PATIENT, LEVEL III Diagnosis: ESSENTIAL HYPERTENSION[SNOMED: 74656389] Frida Guerra MD [facility] CPT-4: 93829 04/21/2012 ([id number]) 70534 EST. PATIENT, LEVEL IV Diagnosis: ESSENTIAL HYPERTENSION[SNOMED: 23927199] Diagnosis: Ulceration[ICD9: 707.9] Frida Guerra MD [facility] CPT-4: 34963 04/07/2012 ([id number]) 71806 EST. PATIENT, LEVEL IV Diagnosis: Skin lesion[ICD9: 709.9] Diagnosis: ESSENTIAL HYPERTENSION[SNOMED: 56458882] Frida Guerra MD [facility] CPT-4: 65901 03/27/2012 ([id number]) 92529 EST. PATIENT, LEVEL III Diagnosis: ESSENTIAL HYPERTENSION[SNOMED: 22209271] Frida Guerra MD [facility] CPT-4: 64642 11/22/2011 31619 EST. PATIENT, LEVEL IV Diagnosis: Urinary tract infection, recurrent[ICD9: 599.0] Diagnosis: Seborrheic keratosis[ICD9: 702.19] Diagnosis: ESSENTIAL HYPERTENSION[SNOMED: 13076862] Frida Guerra MD [facility] CPT-4: 19205 09/06/2011 22918 EST. PATIENT, LEVEL III Diagnosis: UTI[ICD9: 599.0] Diagnosis: Leg cramps[ICD9: 729.82] Frida Guerra MD [facility] CPT-4: 06591 08/28/2011 58382 EST. PATIENT, LEVEL III Diagnosis: Acute UTI[ICD9: 599.0] Opal Guerra MD [facility] CPT-4: 48578 07/20/2011 31183 EST. PATIENT, LEVEL IV Diagnosis: Cough[ICD9: 786.2] Diagnosis: Environmental allergies[ICD9: 477.9] Frida Guerra MD, [facility] CPT-4: 03139 07/06/2011 96135 EST. PATIENT, LEVEL IV Diagnosis: ESSENTIAL HYPERTENSION[SNOMED: 65837560] Diagnosis: DIABETES TYPE II[SNOMED: 567596952] Diagnosis: Skin lesion[ICD9: 709.9] Frida Guerra MD, [facility] CPT-4: 30939 06/25/2011 Plan of Care Planned Activity Notes Codes Status Date Appointment: [facility] [phone] [id number] [place] (15 min) Moderate 10/23/2017 Appointment: [facility] [phone] [id number] [place] (15 min) Moderate 10/11/2017 Visit Plan: Hypertension - well controlled - continue with current medications, continue with no added salt diet. Pt has been encouraged to exercise daily. The pt has been advised to call the office if there are any acute concerns about change in blood pressure readings at home. Diabetes Mellitus - I have recommended for the patient to have follow up labs prior to the next office visit. The patient has been instructed to continue with current medications as previously directed, continue with regular FSBS monitoring to assure continued control of diabetes. Pt to call for any acute concerns, complaints, or if the blood glucose readings are starting to become less controlled. B12 def-B12 injection today in the office 09/13/2017 Visit Plan: Hypertension - well controlled - continue with current medications, continue with no added salt diet. Pt has been encouraged to exercise daily. The pt has been advised to call the office if there are any acute concerns about change in blood pressure readings at home. Diabetes Mellitus - I have recommended for the patient to have follow up labs prior to the next office visit. The patient has been instructed to continue with current medications as previously directed, continue with regular FSBS monitoring to assure continued control of diabetes. Pt to call for any acute concerns, complaints, or if the blood glucose readings are starting to become less controlled. B12 def-B12 injection today in the office 09/13/2017 Appointment: Opal Perez WPtel: [phone] (30 min) Complex 09/13/2017 Patient Education: Patient Medication Summary Completed 09/13/2017 Patient Education: Hypertension Completed 09/13/2017 Appointment: Opal Perez WPtel: [phone] (30 min) Complex 09/10/2017 Visit Plan: Diabetes Mellitus - I have recommended for the patient to have follow up labs prior to the next office visit. The patient has been instructed to continue with current medications as previously directed, continue with regular FSBS monitoring to assure continued control of diabetes. Pt to call for any acute concerns, complaints, or if the blood glucose readings are starting to become less controlled. Hypertension - well controlled - continue with current medications, continue with no added salt diet. Pt has been encouraged to exercise daily. The pt has been advised to call the office if there are any acute concerns about change in blood pressure readings at home. B12 def-check level 07/09/2017 Patient Education: Patient Medication Summary Completed 07/09/2017 Appointment: Opal Perez WPtel: [phone] (30 min) Complex 07/02/2017 Referral: Maria Del Rosario Lemons Referral Completed 06/27/2017 Referral: Maria Del Rosario Lemons Referral Completed 05/22/2017 Visit Plan: Hypertension - well controlled - continue with current medications, continue with no added salt diet. Pt has been encouraged to exercise daily. The pt has been advised to call the office if there are any acute concerns about change in blood pressure readings at home. Refer to Dr Das for significant heart murmur, bradycardia with anesthesia, needs cardiac clearance for foot surgery with Dr Das Osteomyelitis-Dr Das planning resection of right metatarsal head-needs cardiac work up 05/17/2017 Appointment: Opal Perez WPtel: [address] [phone] (30 min) Complex 05/17/2017 Patient Education: Patient Medication Summary Completed 05/17/2017 Care Plan: Referral Order SNOMED-CT : [id number] Pending 05/17/2017 Appointment: Opal Perez WPtel: [phone] (30 min) Complex 05/14/2017 Visit Plan: Hypertension - well controlled - continue with current medications, continue with no added salt diet. Pt has been encouraged to exercise daily. The pt has been advised to call the office if there are any acute concerns about change in blood pressure readings at home. Cellulitis and ulcer of foot - improved - continue with oral antibiotics. Off load site of ulcer. Diabetes Mellitus - controlled - per recent FSBS reports. I have recommended for the patient to have follow up labs prior to the next office visit. The patient has been instructed to continue with current medications as previously directed, continue with regular FSBS monitoring to assure continued control of diabetes. Pt to call for any acute concerns, complaints, or if the blood glucose readings are starting to become less controlled. 04/23/2017 Appointment: Frida Guerra WPtel: [facility] (15 min) Moderate 04/23/2017 Patient Education: Patient Medication Summary Completed 04/23/2017 Patient Education: Hypertension Completed 04/23/2017 Visit Plan: Diabetic foot ulcers-now seeing wound care- continue treatment with wound care as directed-needs to keep woulds clean at all times. Hgb A1C 6.5%-no changes in medications today in the office. Follow up in 1 month, sooner if needed. 03/26/2017 Appointment: Opal Perez WPtel: [facility]5 [phone] (30 min) Complex 03/26/2017 Patient Education: Patient Medication Summary Completed 03/26/2017 Visit Plan: Diabetes Mellitus - controlled - per recent FSBS reports. I have recommended for the patient to have follow up labs prior to the next office visit. The patient has been instructed to continue with current medications as previously directed, continue with regular FSBS monitoring to assure continued control of diabetes. Pt to call for any acute concerns, complaints, or if the blood glucose readings are starting to become less controlled. Acute vs chronic renal failure-decrease indapamide to daily- avoid NSAIDs-tylenol okay-repeat labs in 2 weeks Vitamin B12 deficiency-Vitamin B12 injection today in the office 03/12/2017 Appointment: Opal Perez WPtel: [phone] (15 min) Moderate 03/12/2017 Patient Education: Patient Medication Summary Completed 03/12/2017 Visit Plan: Cellulitis-right foot - continue with oral antibiotics as previously directed, return to clinic as previously directed, call for acute change in symptoms, worsening redness, warmth, discharge. DM-no recent labs-will order AEN-yixkkrnjsn-qq changes today Memory loss-needs memory testing-will schedule after patient completes treatment for infection 03/08/2017 Appointment: Opal Perez WPtel: [phone] (30 min) Complex 03/08/2017 Patient Education: Patient Medication Summary Completed 03/08/2017 Patient Education: Hypertension Completed 03/08/2017 Appointment: Injection 07/19/2016 Patient Education: Patient Medication Summary Completed 07/19/2016 Appointment: Lab Draw 06/15/2016 Patient Education: Patient Medication Summary Completed 06/15/2016 Appointment: Frida Guerra WPtel: [address] [place], [place] [phone] (15 min) Moderate 03/15/2016 Appointment: Frida Guerra WPtel: [address] [place], [place] [id number] (15 min) Moderate 03/15/2016 Visit Plan: UTI - pt with positive urinalysis - culture sent if appropriate. Antibiotic electronically prescribed to pt's pharmacy of choice. Pt to call if symptoms do not improve. 02/16/2016 Patient Education: Patient Medication Summary Completed 02/16/2016 Visit Plan: Diabetes Mellitus - controlled - per recent FSBS reports. I have recommended for the patient to have follow up labs prior to the next office visit. The patient has been instructed to continue with current medications as previously directed, continue with regular FSBS monitoring to assure continued control of diabetes. Pt to call for any acute concerns, complaints, or if the blood glucose readings are starting to become less controlled. Hypertension - well controlled - continue with current medications, continue with no added salt diet. Pt has been encouraged to exercise daily. The pt has been advised to call the office if there are any acute concerns about change in blood pressure readings at home. Hyperlipidemia - pt has been counseled about appropriate diet, exercise, and need for low fat food choices. I have discussed the need for the patient to take medications as prescribed. If the patient has negative side effects from the medication, they are to CALL the office and not abruptly discontinue the medication without discussion with a practitioner in the office. We will check labs in 3-6 months for follow up on the patient's chronic medical problem and to assure normal liver response to medications. 09/14/2015 Appointment: Frida Guerra WPtel: [address] (15 min) Moderate 09/14/2015 Patient Education: Patient Medication Summary Completed 09/14/2015 Patient Education: Hypertension Completed 09/14/2015 Care Plan: COMPLETE CBC AUTOMATED LOINC : 89805-4 Ordered 09/14/2015 Appointment: Injection 07/06/2015 Appointment: Nurse Visit 07/05/2015 Patient Education: Patient Medication Summary Completed 07/05/2015 Appointment: Fr[facility]Ptel[facility] Sick 10/28/2014 Visit Plan: Hypertension - well controlled - continue with current medications, continue with no added salt diet. Pt has been encouraged to exercise daily. The pt has been advised to call the office if there are any acute concerns about change in blood pressure readings at home. Diabetes Mellitus - controlled - per recent FSBS reports. I have recommended for the patient to have follow up labs prior to the next office visit. The patient has been instructed to continue with current medications as previously directed, continue with regular FSBS monitoring to assure continued control of diabetes. Pt to call for any acute concerns, complaints, or if the blood glucose readings are starting to become less controlled. 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 Treatment modalities have been discussed and pt is considering different treatment options. We will follow up with treatment at next office visit after review of testing. Pt started on namenda- will monitor symptoms at next office visit. 10/21/2014 Appointment: Frida Guerra WPtel: [address] [facility] Follow up 10/21/2014 Patient Education: Patient Medication Summary Completed 10/21/2014 Patient Education: Hypertension Completed 10/21/2014 Visit Plan: Pneumonia and Cough - Pt has been diagnosed with pneumonia by physical exam. A chest xray has been ordered as have antibiotics. The pt is aware of the diagnosis and the need for acute treatment of this illness. Hypertension - well controlled - continue with current medications, continue with no added salt diet. Pt has been encouraged to exercise daily. The pt has been advised to call the office if there are any acute concerns about change in blood pressure readings at home. Diabetes Mellitus - controlled - per recent FSBS reports. I have recommended for the patient to have follow up labs prior to the next office visit. The patient has been instructed to continue with current medications as previously directed, continue with regular FSBS monitoring to assure continued control of diabetes. Pt to call for any acute concerns, complaints, or if the blood glucose readings are starting to become less controlled. Hyperlipidemia - pt has been counseled about appropriate diet, exercise, and need for low fat food choices. I have discussed the need for the patient to take medications as prescribed. If the patient has negative side effects from the medication, they are to CALL the office and not abruptly discontinue the medication without discussion with a practitioner in the office. We will check labs in 3-6 months for follow up on the patient's chronic medical problem and to assure normal liver response to medications. 10/11/2014 Appointment: Frida Guerra WPtel: [address] [facility] [place] Follow up 10/11/2014 Patient Education: Patient Medication Summary Completed 10/11/2014 Patient Education: Hypertension Completed 10/11/2014 Appointment: Frida Guerra WPtel: [address] [facility] Follow up 09/28/2014 Patient Education: Patient Medication Summary Completed 09/09/2014 Appointment: Frida Guerra WPtel: [address] [facility] [place] Injection 09/07/2014 Appointment: CharlieFrida WPtel: [facility] [place] Injection 09/06/2014 Visit Plan: Hypertension - well controlled - continue with current medications, continue with no added salt diet. Pt has been encouraged to exercise daily. The pt has been advised to call the office if there are any acute concerns about change in blood pressure readings at home. Diet Controlled Diabetes Mellitus - controlled - per recent Hgba1c.. I have recommended for the patient to have follow up labs prior to the next office visit. Pt to call for any acute concerns, complaints. Pt needs to monitor diet and have better dietary control of carbohydrates and straight glucose intake. 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 07/28/2014 Appointment: Frida Guerra WPtel: [facility] Follow up 07/28/2014 Patient Education: Patient Medication Summary Completed 07/28/2014 Patient Education: Hypertension Completed 07/28/2014 Appointment: Lab Draw 06/21/2014 Patient Education: Patient Medication Summary Completed 06/21/2014 Appointment: Lab Draw 06/16/2014 Patient Education: Patient Medication Summary Completed 06/16/2014 Appointment: Frida Guerra WPtel: [facility] Lab Draw 05/04/2014 Patient Education: Patient Medication Summary Completed 05/04/2014 Visit Plan: Diabetes Mellitus - not quite optimally controlled- pt having trouble with her diabetic diet - I have recommended counseling for her diet and review of FSBS in about a month with my BALBINA Bautista. The patient has been instructed to continue with current medications as previously directed, continue with regular FSBS monitoring to assure continued control of diabetes. Pt to call for any acute concerns, complaints, or if the blood glucose readings are starting to become less controlled. I have recommended for the patient to follow more strictly to the diabetic diet as discussed in clinic to allow for greater blood glucose control. Hypertension - well controlled - continue with current medications, continue with no added salt diet. Pt has been encouraged to exercise daily. The pt has been advised to call the office if there are any acute concerns about change in blood pressure readings at home. 01/27/2014 Appointment: Frida Guerra WPtel: [facility] Follow up 01/27/2014 Patient Education: Patient Medication Summary Completed 01/27/2014 Patient Education: Hypertension Completed 01/27/2014 Appointment: Frida Guerra WPtel: [address] [place], [place] [phone] Lab Draw 01/21/2014 Patient Education: Patient Medication Summary Completed 01/21/2014 Patient Education: Hypertension Completed 01/21/2014 Visit Plan: Daibetes and diabetic diet discussed in detail today with the patient-recommend cutting back on soda, cutting back on white breads, white pasta, and white potatoes. Check HgbA1C today in the office.-will repeat in 3-6 months. Patient verbalized understanding of plan. 10/22/2013 Appointment: Opal Perez WPtel: [facility]5 [id number] [place] [address] Diabetic education 10/22/2013 Patient Education: Patient Medication Summary Completed 10/22/2013 Patient Education: .Amazing charts Diabetic meal planning guide Completed 10/22 Visit Plan: Hypertension - well controlled - continue with current medications, continue with no added salt diet. Pt has been encouraged to exercise daily. The pt has been advised to call the office if there are any acute concerns about change in blood pressure readings at home. Diabetes Mellitus - controlled with diet. I have recommended for the patient to have follow up labs prior to the next office visit. The patient has been instructed to continue with current medications as previously directed, continue with regular FSBS monitoring to assure continued control of diabetes. Pt to call for any acute concerns, complaints, or if the blood glucose readings are starting to become less controlled. 08/24/2013 Appointment: Frida Guerra WPtel: [address] [place], [place] [phone] [facility] follow up 08/24/2013 Patient Education: Patient Medication Summary Completed 08/24/2013 Patient Education: Hypertension Completed 08/24/2013 Appointment: Frida Guerra WPtel: [facility] Follow up 07/08/2013 Visit Plan: Continue with treatment strategy as previously directed. 04/02/2013 Appointment: rFida Guerra WPtel: [address] [place], [place] [id number] Follow up 04/02/2013 Patient Education: Patient Medication Summary Completed 04/02/2013 Visit Plan: Dressing change today in the office-pt started on clindamycin 300mg bid, and plan-bone scan tomorrow and appointment with Dr Ren for next week. If positive scan positive, will need to consider potential amputation. 03/31/2013 Appointment: Frida Guerra WPtel: [address] [place], [place] [phone] Other 03/31/2013 Patient Education: Patient Medication Summary Completed 03/31/2013 Visit Plan: Pwjt-qctuxrwz-xniygpmja natural and expected course of this diagnosis and to alert me if symptoms do not follow the expected course, or if any worse. Kenalog injection today in the office for acute symptoms. Instructed patient to call in a.m. with update on symptoms. Continue otc allergy pill daily. 12/18/2012 Appointment: Opal Perez WPtel: [address] [place], [place] [phone] Other 12/18/2012 Patient Education: Patient Medication Summary Completed 12/18/2012 Visit Plan: Dressing change today in the office-continue current treatment plan-bone scan tomorrow and appointment with Dr Ren. If positive scan positive, will also start antibiotics. 10/20/2012 Appointment: Opal Perez WPtel: [address] [place] [id number] Follow up 10/20/2012 Patient Education: Patient Medication Summary Completed 10/20/2012 Visit Plan: suspected osteomyelitis of the second digits in both feet, and ulcer of the great toe metatarsal head on the right. pt to have a 3 phase bone scan on 10/21/12, i will also have her see an orthopedic surgeon nusrat. 10/16/2012 Appointment: Frida Guerra WPtel: [address] [place], [place] [phone] Follow up 10/16/2012 Patient Education: Patient Medication Summary Completed 10/16/2012 Appointment: Frida Guerra WPtel: [address] [place], [place] [phone] Follow up 10/15/2012 Patient Education: Patient Medication Summary Completed 09/05/2012 Patient Education: High Blood Pressure: Essential Hypertension Completed 2011 Visit Plan: Ulcer/callus on foot - recommended that the patient continue with current management of feet - also recommended use of the A and D ointment over the edges of the callus to get the callus to become softer , call if worsening symptoms. 08/13/2012 Appointment: Frida Guerra WPtel: [address] [place], [place] [phone] Follow up 08/13/2012 Patient Education: Patient Medication Summary Completed 08/13/2012 Visit Plan: Callous of right 3rd toe and callous ulcer of right foot-pared down today in the office. Patient tolerated welll Pt to use bactroban to the wounds on the feet, start on oral antibiotics as instructed. Ulcer of left great toe-healed 07/29/2012 Appointment: Frida Guerra WPtel: [address] [place], [place] [phone] Follow up 07/29/2012 Appointment: Frida Guerra WPtel: [address] [place], [place] [phone] Follow up 07/29/2012 Patient Education: Patient Medication Summary Completed 07/29/2012 Visit Plan: Abscess/Cellulitis-right foot - The patient was instructed in appropriate wound care. The patient was instructed to use the antibiotic ointment as per RX. The patient is to call for any change in symptoms , increase in size of the lesion, increase in pain. Callous of right 3rd toe and callous ulcer of right foot-pared down today in the office. Patient tolerated welll Pt to use bactroban to the wounds on the feet, start on oral antibiotics as instructed. Ulcer of left great toe-healed 07/17/2012 Appointment: Opal Perez WPtel: [address] [place], [place] [phone] [place] Follow up 07/17/2012 Patient Education: Patient Medication Summary Completed 07/17/2012 Visit Plan: Abscess/Cellulitis - The patient was instructed in appropriate wound care. The patient was instructed to use the antibiotic ointment as per RX. The patient is to call for any change in symptoms , increase in size of the lesion, increase in pain. Pt to use bactroban to the wounds on the feet, start on oral antibiotics, and xray of the right foot. 07/07/2012 Appointment: Frida Guerra WPtel: [address] [place] Follow up 07/07/2012 Patient Education: Patient Medication Summary Completed 07/07/2012 Visit Plan: Ulcer of left great plg-nkqgdycdi-wjqzjxsdn natural and expected course of this diagnosis and to alert me if symptoms do not follow expected course, or if any worse. Continue wound care as directed. Continue to wear post op shoe. 06/26/2012 Appointment: Opal Perez WPtel: [address] [place], [place] [phone] [place] Follow up 06/26/2012 Patient Education: Patient Medication Summary Completed 06/26/2012 Visit Plan: Naebsozwbs-agu-owwyomuo wound care and abx- follow up appt with Dr. Ren as well 06/19/2012 Appointment: Opal Perez WPtel: [facility]5 [phone] [place] Follow up 06/19/2012 Patient Education: Patient Medication Summary Completed 06/19/2012 Visit Plan: Ulcer of left great ond-rtidqbcfmx-idctqzvwy natural and expected course of this diagnosis and to alert me if symptoms do not follow expected course, or if any worse. RX sent to patient's pharmacy. Return to clinic in 2 days for quick look at toes. 06/17/2012 Appointment: Opal Perez WPtel: [phone] [place] Other 06/17/2012 Patient Education: Patient Medication Summary Completed 06/17/2012 Visit Plan: Fall-facial pyoi-aepcupqfb-qdhi to xray facial bones to evaluate for acute fracture-discussed natural and expected course of this diagnosis and to alert me if symptoms do not follow expected course, or if any worse. Recommend ice to affected areas. 06/06/2012 Appointment: Opal Perez WPtel: [address] [phone] Other 06/06/2012 Patient Education: Patient Medication Summary Completed 06/06/2012 Visit Plan: Hypertension - well controlled - continue with current medications, continue with no added salt diet. Pt has been encouraged to exercise daily. The pt has been advised to call the office if there are any acute concerns about change in blood pressure readings at home. Osteomyelitis- pt is scheduled for surgery of this week for amputation of great toe and other affect digits. 05/20/2012 Appointment: Frida Guerra WPtel: [address] Other 05/20/2012 Patient Education: Patient Medication Summary Completed 05/20/2012 Patient Education: High Blood Pressure: Essential Hypertension Completed 2011 Visit Plan: Ulcer of foot - after paring down the callus around the ulcer, there was clear liquid exuding from the open wound. THe pt was sent to the hospital for xray of the foot, if the xray of foot did not reveal and abnormality, then will likely need further imaging. I suspect that she will end up with amputation of the toe, I informed CAMERON that she may end up with a partial amputation if there is in fection in the bone as she simply cannot heal otherwise due to previous infection and failure of long-term cure. depending on xray results, will have her see kido 05/06/2012 Appointment: Frida Guerra WPtel: [facility] [place] Other 05/06/2012 Patient Education: Patient Medication Summary Completed 05/06/2012 Visit Plan: Hypertension - well controlled - continue with current medications, continue with no added salt diet. Pt has been encouraged to exercise daily. The pt has been advised to call the office if there are any acute concerns about change in blood pressure readings at home. Ulcer can callus of the great toe on left foot, 3rd digit of right foot and on the plantar surface of the right foot - allwere pared down with a 15 blade, and the pt tolerated the procedure without incident, the lesions were dressed with: silvadene to the toe and over the callus on the bottom of the foot. 04/21/2012 Appointment: Frida Guerra WPtel: [address] [place] [address] Other 04/21/2012 Patient Education: Patient Medication Summary Completed 04/21/2012 Patient Education: High Blood Pressure: Essential Hypertension Completed 2011 Visit Plan: Hypertension - well controlled - continue with current medications, continue with no added salt diet. Pt has been encouraged to exercise daily. The pt has been advised to call the office if there are any acute concerns about change in blood pressure readings at home. Ulcer can callus of the great toe on left foot, 3rd digit of right foot and on the plantar surface of the right foot - allwere pared down with a 15 blade, and the pt tolerated the procedure without incident, the lesions were dressed with: silvadene to the toe and over the callus on the bottom of the foot. 04/07/2012 Appointment: Frida Guerra WPtel: [address] [place] [address] Other 04/07/2012 Patient Education: Patient Medication Summary Completed 04/07/2012 Patient Education: High Blood Pressure: Essential Hypertension Completed 2011 Visit Plan: Hypertension - well controlled - continue with current medications, continue with no added salt diet. Pt has been encouraged to exercise daily. The pt has been advised to call the office if there are any acute concerns about change in blood pressure readings at home. Cellulitis- pt started on antibiotics, the callus around the wound was pared down 03/27/2012 Appointment: Frida Guerra WPtel: [address] [place] [address] Other 03/27/2012 Patient Education: Patient Medication Summary Completed 03/27/2012 Patient Education: High Blood Pressure: Essential Hypertension Completed 2011 Visit Plan: Hypertension - well controlled - continue with current medications, continue with no added salt diet. Pt has been encouraged to exercise daily. The pt has been advised to call the office if there are any acute concerns about change in blood pressure readings at home. 11/22/2011 Appointment: Frida Guerra WPtel: [id number] Other 11/22/2011 Patient Education: Patient Medication Summary Completed 11/22/2011 Patient Education: High Blood Pressure: Essential Hypertension Completed 2011 Visit Plan: UTI - pt with positive urinalysis - culture sent if appropriate. Antibiotic electronically prescribed to pt's pharmacy of choice. Pt to call if symptoms do not improve. Seborrheic keratosis - continue with watching lesion - too many to remove at this time, the lesions are not inflammed, there are several that are on the neckline which may easliy become inflammed, pt warned of signs to look for, or symptoms to be aware of and told to come to clinic for any acute concern. HTN - BP up today - monitor. 09/06/2011 Appointment: Frida Guerra WPtel: [address] [place], [place] [phone] Surgical Procedure 09/06/2011 Patient Education: Patient Medication Summary Completed 09/06/2011 Patient Education: High Blood Pressure: Essential Hypertension Completed 2010 Appointment: Opal Perez WPtel: [address] [place], [place] [id number] Other 08/29/2011 Visit Plan: UTI-discussed natural and expected course of this diagnosis and to alert me if symptoms do not follow expected course, or if any worse. Leg cramps-check chemistry panel 08/28/2011 Appointment: Opal Perez WPtel: [address] [place], [place] [id number] Other 08/28/2011 Patient Education: Patient Medication Summary Completed 08/28/2011 Visit Plan: UTI-Urine collected in the office today sent for culture-discussed natural and expected course of this diagnosis and patient to alert me if symptoms do not follow expected course, or if any worse. RX sent to patient's pharmacy. 07/20/2011 Appointment: Opal Perez WPtel: [address] [place], [place] [phone] Other 07/20/2011 Patient Education: Patient Medication Summary Completed 07/20/2011 Appointment: Firda Guerra WPtel: [address] [place], [place] [phone] Other 07/11/2011 Visit Plan: Allergies - Advised avoidance of allergens if possible, we discussed natural and expected course of this diagnosis and need to alert me if symtpoms do not follow expected course, or if any worse. Cough- RX for cough med called to patient's pharmacy. Patient to call if cough persists. Will consider switching lisinopril if cough persists. 07/06/2011 Appointment: Opal Perez WPtel: [phone] Other 07/06/2011 Patient Education: Patient Medication Summary Completed 07/06/2011 Visit Plan: Hypertension - well controlled - continue with current medications, continue with no added salt diet. Pt has been encouraged to exercise daily. The pt has been advised to call the office if there are any acute concerns about change in blood pressure readings at home. Diet controlled diabetes- recommend a low carbohydrate diet and continue with daily exercise activity. Return to clinic in JULY FOR LABS hgba1c SKIN LESION- use neosporin to upper right chest lesion that was removed today in clinic. 06/25/2011 Appointment: Frida Guerra WPtel: [address] [place] [id number] Other 06/25/2011 Appointment: Frida Guerra WPtel: [address] [place], [place] [phone] Other 06/25/2011 Patient Education: Patient Medication Summary Completed 06/25/2011 Referral: Maria Del Rosario Lemons Referral Appointment Requested Instructions Comment . Hypertension - well controlled - continue with current medications, continue with no added salt diet. Pt has been encouraged to exercise daily. The pt has been advised to call the office if there are any acute concerns about change in blood pressure readings at home. Ulcer can callus of the great toe on left foot, 3rd digit of right foot and on the plantar surface of the right foot - allwere pared down with a 15 blade, and the pt tolerated the procedure without incident, the lesions were dressed with: silvadene to the toe and over the callus on the bottom of the foot. . suspected osteomyelitis of the second digits in both feet , and ulcer of the great toe metatarsal head on the right. pt to have a 3 phase bone scan on 10/21/12, i will also have her see an orthopedic surgeon nusrat. . Dressing change today in the office-continue current treatment plan-bone scan tomorrow and appointment with Dr Ren. If positive scan positive, will also start antibiotics. Call Saturday with update. . Allergies - Advised avoidance of allergens if possible, we discussed natural and expected course of this diagnosis and need to alert me if symtpoms do not follow expected course, or if any worse. Cough-RX for cough med called to patient's pharmacy. Patient to call if cough persists. Will consider switching lisinopril if cough persists. start cefdinir tomorrow 10/12/14 and start zpack TODAY sweet oil to ears daily x 7 days . Pneumonia and Cough - Pt has been diagnosed with pneumonia by physical exam. A chest xray has been ordered as have antibiotics. The pt is aware of the diagnosis and the need for acute treatment of this illness. Hypertension - well controlled - continue with current medications, continue with no added salt diet. Pt has been encouraged to exercise daily. The pt has been advised to call the office if there are any acute concerns about change in blood pressure readings at home. Diabetes Mellitus - controlled - per recent FSBS reports. I have recommended for the patient to have follow up labs prior to the next office visit. The patient has been instructed to continue with current medications as previously directed, continue with regular FSBS monitoring to assure continued control of diabetes. Pt to call for any acute concerns, complaints, or if the blood glucose readings are starting to become less controlled. Hyperlipidemia - pt has been counseled about appropriate diet, exercise, and need for low fat food choices. I have discussed the need for the patient to take medications as prescribed. If the patient has negative side effects from the medication, they are to CALL the office and not abruptly discontinue the medication without discussion with a practitioner in the office. We will check labs in 3-6 months for follow up on the patient's chronic medical problem and to assure normal liver response to medications. Refer to Dr Das for pre-op clearance/heart murmur . Hypertension - well controlled - continue with current medications, continue with no added salt diet. Pt has been encouraged to exercise daily. The pt has been advised to call the office if there are any acute concerns about change in blood pressure readings at home. Refer to Dr Das for significant heart murmur, bradycardia with anesthesia, needs cardiac clearance for foot surgery with Dr Das Osteomyelitis-Dr Das planning resection of right metatarsal head-needs cardiac work up . Ulcer of left great lgh-whlgllqwx-yivjlnniy natural and expected course of this diagnosis and to alert me if symptoms do not follow expected course, or if any worse. Continue wound care as directed. Continue to wear post op shoe. CHECK LABS IN 2 MONTHS MONITOR BLOOD PRESSURE AND PULSE AT HOME . Hypertension - well controlled - continue with current medications, continue with no added salt diet. Pt has been encouraged to exercise daily. The pt has been advised to call the office if there are any acute concerns about change in blood pressure readings at home. Diabetes Mellitus - I have recommended for the patient to have follow up labs prior to the next office visit. The patient has been instructed to continue with current medications as previously directed, continue with regular FSBS monitoring to assure continued control of diabetes. Pt to call for any acute concerns, complaints, or if the blood glucose readings are starting to become less controlled. B12 def-B12 injection today in the office . Ulcer of foot - after paring down the callus around the ulcer, there was clear liquid exuding from the open wound. THe pt was sent to the hospital for xray of the foot, if the xray of foot did not reveal and abnormality, then will likely need further imaging. I suspect that she will end up with amputation of the toe, I informed CAMERON that she may end up with a partial amputation if there is in fection in the bone as she simply cannot heal otherwise due to previous infection and failure of long-term cure. depending on xray results, will have her see huy . Dressing change today in the office-pt started on clindamycin 300mg bid, and plan-bone scan tomorrow and appointment with Dr Ren for next week. If positive scan positive, will need to consider potential amputation. . UTI-Urine collected in the office today sent for culture- discussed natural and expected course of this diagnosis and patient to alert me if symptoms do not follow expected course, or if any worse. RX sent to patient' s pharmacy. . Hypertension - well controlled - continue with current medications, continue with no added salt diet. Pt has been encouraged to exercise daily. The pt has been advised to call the office if there are any acute concerns about change in blood pressure readings at home. Osteomyelitis- pt is scheduled for surgery of this week for amputation of great toe and other affect digits. . Continue with treatment strategy as previously directed. Bactrim Ds twice daily-I called it to your pharmacy-start it TODAY . Ulcer of left great gid-pcplqlapta-ietwpgmbl natural and expected course of this diagnosis and to alert me if symptoms do not follow expected course, or if any worse. RX sent to patient's pharmacy. Return to clinic in 2 days for quick look at toes. . Diabetic foot ulcers-now seeing wound care-continue treatment with wound care as directed-needs to keep woulds clean at all times. Hgb A1C 6.5%-no changes in medications today in the office. Follow up in 1 month , sooner if needed. flu vaccine . Diabetes Mellitus - I have recommended for the patient to have follow up labs prior to the next office visit. The patient has been instructed to continue with current medications as previously directed, continue with regular FSBS monitoring to assure continued control of diabetes. Pt to call for any acute concerns, complaints, or if the blood glucose readings are starting to become less controlled. Hypertension - well controlled - continue with current medications, continue with no added salt diet. Pt has been encouraged to exercise daily. The pt has been advised to call the office if there are any acute concerns about change in blood pressure readings at home. B12 def-check level . Hypertension - well controlled - continue with current medications, continue with no added salt diet. Pt has been encouraged to exercise daily. The pt has been advised to call the office if there are any acute concerns about change in blood pressure readings at home. . Hypertension - well controlled - continue with current medications, continue with no added salt diet. Pt has been encouraged to exercise daily. The pt has been advised to call the office if there are any acute concerns about change in blood pressure readings at home. Diet controlled diabetes- recommend a low carbohydrate diet and continue with daily exercise activity. Return to clinic in JUL[facility] FOR LABS hgba1c SKIN LESION- use neosporin to upper right chest lesion that was removed today in clinic. . Cellulitis-right foot - continue with oral antibiotics as previously directed, return to clinic as previously directed, call for acute change in symptoms, worsening redness, warmth, discharge. DM-no recent labs-will order UYY-plsgmaminw-bm changes today Memory loss-needs memory testing-will schedule after patient completes treatment for infection . Diabetes Mellitus - not quite optimally controlled- pt having trouble with her diabetic diet - I have recommended counseling for her diet and review of FSBS in about a month with my BALBINA Bautista. The patient has been instructed to continue with current medications as previously directed, continue with regular FSBS monitoring to assure continued control of diabetes. Pt to call for any acute concerns, complaints, or if the blood glucose readings are starting to become less controlled. I have recommended for the patient to follow more strictly to the diabetic diet as discussed in clinic to allow for greater blood glucose control. Hypertension - well controlled - continue with current medications, continue with no added salt diet. Pt has been encouraged to exercise daily. The pt has been advised to call the office if there are any acute concerns about change in blood pressure readings at home. . Jegw-jnnhbqch-qzkngsqjv natural and expected course of this diagnosis and to alert me if symptoms do not follow the expected course, or if any worse. Kenalog injection today in the office for acute symptoms. Instructed patient to call in a.m. with update on symptoms. Continue otc allergy pill daily. . Hypertension - well controlled - continue with current medications, continue with no added salt diet. Pt has been encouraged to exercise daily. The pt has been advised to call the office if there are any acute concerns about change in blood pressure readings at home. Diabetes Mellitus - controlled - per recent FSBS reports. I have recommended for the patient to have follow up labs prior to the next office visit. The patient has been instructed to continue with current medications as previously directed, continue with regular FSBS monitoring to assure continued control of diabetes. Pt to call for any acute concerns, complaints, or if the blood glucose readings are starting to become less controlled. 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 Treatment modalities have been discussed and pt is considering different treatment options. We will follow up with treatment at next office visit after review of testing. Pt started on namenda- will monitor symptoms at next office visit. . Hypertension - well controlled - continue with current medications, continue with no added salt diet. Pt has been encouraged to exercise daily. The pt has been advised to call the office if there are any acute concerns about change in blood pressure readings at home. Cellulitis and ulcer of foot - improved - continue with oral antibiotics. Off load site of ulcer. Diabetes Mellitus - controlled - per recent FSBS reports. I have recommended for the patient to have follow up labs prior to the next office visit. The patient has been instructed to continue with current medications as previously directed, continue with regular FSBS monitoring to assure continued control of diabetes. Pt to call for any acute concerns, complaints, or if the blood glucose readings are starting to become less controlled. . Fall-facial vtkc-vvmynxcei-vkel to xray facial bones to evaluate for acute fracture-discussed natural and expected course of this diagnosis and to alert me if symptoms do not follow expected course, or if any worse. Recommend ice to affected areas. . Hypertension - well controlled - continue with current medications, continue with no added salt diet. Pt has been encouraged to exercise daily. The pt has been advised to call the office if there are any acute concerns about change in blood pressure readings at home. Cellulitis- pt started on antibiotics, the callus around the wound was pared down . Abscess/Cellulitis-right foot - The patient was instructed in appropriate wound care. The patient was instructed to use the antibiotic ointment as per RX. The patient is to call for any change in symptoms, increase in size of the lesion, increase in pain. Callous of right 3rd toe and callous ulcer of right foot-pared down today in the office. Patient tolerated welll Pt to use bactroban to the wounds on the feet, start on oral antibiotics as instructed. Ulcer of left great toe-healed CHECK LABS IN 2 MONTHS MONITOR BLOOD PRESSURE AND PULSE AT HOME . Hypertension - well controlled - continue with current medications, continue with no added salt diet. Pt has been encouraged to exercise daily. The pt has been advised to call the office if there are any acute concerns about change in blood pressure readings at home. Diabetes Mellitus - I have recommended for the patient to have follow up labs prior to the next office visit. The patient has been instructed to continue with current medications as previously directed, continue with regular FSBS monitoring to assure continued control of diabetes. Pt to call for any acute concerns, complaints, or if the blood glucose readings are starting to become less controlled. B12 def-B12 injection today in the office REFER TO DR KAHN AT WOUND CARE IF [place] WITH DR DAS DECREASE INDAPAMIDE TO DAILY DUE TO RENAL FUNCTION STOP EVENING POTASSIUM DOSE B12 INJECTION TODAY IN THE OFFICE PATIENT NEEDS ECHO-WILL GET COPY OF PREVIOUS ECHO AND PLAN TO DISCUSS AT FOLLOW UP APPT IN 2 WEEKS REPEAT LABS IN 2 WEEKS TO MONITOR RENAL FUNCTION INCREASE WATER INTAKE AVOID NSAIDS-NO ALEVE, ADVIL, NAPROXEN, IBUPROFEN, ETC -TYLENOL IS OKAY . Diabetes Mellitus - controlled - per recent FSBS reports. I have recommended for the patient to have follow up labs prior to the next office visit. The patient has been instructed to continue with current medications as previously directed, continue with regular FSBS monitoring to assure continued control of diabetes. Pt to call for any acute concerns, complaints, or if the blood glucose readings are starting to become less controlled. Acute vs chronic renal failure-decrease indapamide to daily-avoid NSAIDs- tylenol okay-repeat labs in 2 weeks Vitamin B12 deficiency-Vitamin B12 injection today in the office . Hypertension - well controlled - continue with current medications, continue with no added salt diet. Pt has been encouraged to exercise daily. The pt has been advised to call the office if there are any acute concerns about change in blood pressure readings at home. Diabetes Mellitus - controlled with diet. I have recommended for the patient to have follow up labs prior to the next office visit. The patient has been instructed to continue with current medications as previously directed, continue with regular FSBS monitoring to assure continued control of diabetes. Pt to call for any acute concerns, complaints, or if the blood glucose readings are starting to become less controlled. . Piofkjxaus-xaw-nsghxaqa wound care and abx-follow up appt with Dr. Ren as well . UTI - pt with positive urinalysis - culture sent if appropriate. Antibiotic electronically prescribed to pt's pharmacy of choice. Pt to call if symptoms do not improve. Seborrheic keratosis - continue with watching lesion - too many to remove at this time, the lesions are not inflammed, there are several that are on the neckline which may easliy become inflammed, pt warned of signs to look for, or symptoms to be aware of and told to come to clinic for any acute concern. HTN - BP up today - monitor. . Abscess/Cellulitis - The patient was instructed in appropriate wound care. The patient was instructed to use the antibiotic ointment as per RX. The patient is to call for any change in symptoms, increase in size of the lesion, increase in pain. Pt to use bactroban to the wounds on the feet, start on oral antibiotics, and xray of the right foot. I sent prescriptions to [facility] for you to start today. Cipro (antibiotic) is twice daily for a week. Lactobacillus is also twice daily but I want you to take it for a week. After you finish the antibiotic, return to clinic for follow up UA. Okay to continue with cranberry juice. . UTI-discussed natural and expected course of this diagnosis and to alert me if symptoms do not follow expected course, or if any worse. Leg cramps-check chemistry panel Apply Silvadene to sore on left great toe and right foot once per day.. Hypertension - well controlled - continue with current medications, continue with no added salt diet. Pt has been encouraged to exercise daily. The pt has been advised to call the office if there are any acute concerns about change in blood pressure readings at home. Ulcer can callus of the great toe on left foot, 3rd digit of right foot and on the plantar surface of the right foot - allwere pared down with a 15 blade, and the pt tolerated the procedure without incident, the lesions were dressed with: silvadene to the toe and over the callus on the bottom of the foot. . Callous of right 3rd toe and callous ulcer of right foot-pared down today in the office. Patient tolerated welll Pt to use bactroban to the wounds on the feet, start on oral antibiotics as instructed. Ulcer of left great toe-healed . Daibetes and diabetic diet discussed in detail today with the patient-recommend cutting back on soda, cutting back on white breads, white pasta, and white potatoes. Check HgbA1C today in the office.-will repeat in 3-6 months. Patient verbalized understanding of plan. . Hypertension - well controlled - continue with current medications, continue with no added salt diet. Pt has been encouraged to exercise daily. The pt has been advised to call the office if there are any acute concerns about change in blood pressure readings at home. Diet Controlled Diabetes Mellitus - controlled - per recent Hgba1c.. I have recommended for the patient to have follow up labs prior to the next office visit. Pt to call for any acute concerns, complaints. Pt needs to monitor diet and have better dietary control of carbohydrates and straight glucose intake. 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 . Ulcer/callus on foot - recommended that the patient continue with current management of feet - also recommended use of the A and D ointment over the edges of the callus to get the callus to become softer, call if worsening symptoms. . UTI - pt with positive urinalysis - culture sent if appropriate. Antibiotic electronically prescribed to pt's pharmacy of choice. Pt to call if symptoms do not improve. sweet oil or olive oil in both ears every night x 1 week, then come back to clinic for an appt for ears to be cleaned out . Diabetes Mellitus - controlled - per recent FSBS reports. I have recommended for the patient to have follow up labs prior to the next office visit. The patient has been instructed to continue with current medications as previously directed, continue with regular FSBS monitoring to assure continued control of diabetes. Pt to call for any acute concerns, complaints, or if the blood glucose readings are starting to become less controlled. Hypertension - well controlled - continue with current medications, continue with no added salt diet. Pt has been encouraged to exercise daily. The pt has been advised to call the office if there are any acute concerns about change in blood pressure readings at home. Hyperlipidemia - pt has been counseled about appropriate diet, exercise, and need for low fat food choices. I have discussed the need for the patient to take medications as prescribed. If the patient has negative side effects from the medication, they are to CALL the office and not abruptly discontinue the medication without discussion with a practitioner in the office. We will check labs in 3-6 months for follow up on the patient's chronic medical problem and to assure normal liver response to medications.
--- OUTSIDE RECORDS SUMMARY | 2018-05-08 01:15 | XMS REPORT | Continuity of Care Document ---
Author Author [facility] Organization [facility] Address Unknown Phone Unavailable Care Team Providers Care Occasional Caregiver Name Role Phone BILL CARRANZA MD PP Insurance Providers Payer Name Policy Number Subscriber Name Relationship Garett Arevalo [facility] Supp [id number] Liliam Dominguez 01 Self / Same As Patient Wps Medicare [id number] Liliam Dominguez Self / Same As Patient Advance Directives Directive Response Recorded Date Advance Directives N 07/14/13 12:50pm Health Care Power of Assembler Lay Ups N 07/14/13 12:50pm Organ Donor Y 07/14/13 12:50pm Problems No Known Problems or Medical conditions. Social History History Response Recorded Date/Time Alcohol Use Denies Use 07/14/13 12:50pm Recreational Drug Use N 07/14/13 12:50pm Recent Infectious Disease Exposure N 05/19 12:50pm Allergies, Adverse Reactions, Alerts Allergen Type Severity Reaction Last Updated No Known Drug Allergies 07/13/11 Medications Medication Dose Units Route Sig Qty Days Clindamycin HCl (Cleocin Cap) 300 Mg PO BID Estradiol (Estrace) 0.5 Mg PO HS Potassium Chloride 20 Meq PO DAILY [place]-3/Dha/Epa/Fish Oil (Fish Oil 1,000 Mg Softgel) 1000 Mg PO BID Potassium Chloride 10 Meq PO HS Simvastatin (Zocor) 20 Mg PO HS Calcium Carbonate/Vitamin D3 (Caltrate 600 + D Chewable Tab) 1 Tab PO HS Lisinopril 20 Mg PO HS Indapamide 2.5 Mg PO BID Folic Acid/Multivits-Min/Lut (Centrum Silver Chewable Tablet) 1 Tab PO HS [Potassium ER] 10 Meq HS [Potassium ER] 10 Meq PO DAILY Estrogens Conjugated (Premarin Tab) 0.3 Mg PO HS Acetaminophen/Hydrocodone Bitart (Lortab 5 Mg) 1 - 2 Ea PO Q 4 - 6 HR PRN 30 Potassium Chloride (Klor-Con) 10 Meq PO HS Potassium Chloride (Klor-Con) 20 Meq PO DAILY Immunizations Name Given Type Date of Pneumonia Vaccine 08/07/12 H Date of Influenza Vaccine 07/10/13 H influenza, split (incl. purified surface antigen) 07/09/13 A Response Recorded Date/Time Status not known Unknown Results Test Date Result Interp. Ref. Range Alanine Aminotransferase (ALT/SGPT) July 13, 2013 9:30am 55 U/L N 30-65 Albumin July 13, 2013 9:30am 2.6 G/ DL L 3.4-5.0 Alkaline Phosphatase July 13, 2013 9:30am 94 U/L N 50-136 Aspartate Amino Transf (AST/SGOT) July 13, 2013 9:30am 45 U/L H 15-37 BUN/Creatinine Ratio July 13, 2013 9:30am 13 - Basophils # (Auto) July 13, 2013 9:30am 0.1 10^3/uL N 0.0-0.1 Basophils (%) (Auto) July 13, 2013 9:30am 1 % N 0-10 Blood Urea Nitrogen July 13, 2013 9:30am 12 MG/DL N 7-18 C-Reactive Protein June 24, 2013 12:18pm < 0.2 MG/DL L 0.2-0.9 Calcium Level July 13, 2013 9:30am 8.7 MG/DL N 8.5-10.1 Carbon Dioxide Level July 13, 2013 9:30am 25 MMOL/L N 21-32 Chloride Level July 13, 2013 9:30am 102 MMOL/L N 101-110 Cholesterol Level July 18, 2012 8:20am 192 MG/DL N -200 Creatinine July 13, 2013 9:30am 0.9 MG/DL N 0.6-1.3 Eosinophils # (Auto) July 13, 2013 9:30am 0.3 10^3/uL N 0.0-0.3 Eosinophils (%) (Auto) July 13, 2013 9:30am 3 % N 0-10 Erythrocyte Sedimentation Rate June 24, 2013 12:18pm 24 MM/HR N 0-30 Glucose Level July 13, 2013 9:30am 127 MG/DL H 74-106 HDL Cholesterol July 18, 2012 8:20am 53 MG/DL N 35-60 Hematocrit July 13, 2013 9:30am 38 % N 35-52 Hemoglobin July 13, 2013 9:30am 12.6 G/DL N 11.5-16.0 Hemoglobin A1c July 13, 2011 8:40am 5.9 % N 4.8-6.0 LDL Cholesterol July 18, 2012 8:20am 115 MG/DL N 0-129 Lymphocytes # (Auto) July 13, 2013 9:30am 2.4 X 10^3 N 1.0-4.0 Lymphocytes (%) (Auto) July 13, 2013 9:30am 31 % N 12-44 Mean Corpuscular Hemoglobin July 13, 2013 9:30am 31 PG N 25-34 Mean Corpuscular Hemoglobin Concent July 13, 2013 9:30am 33 G/DL N 32-36 Mean Corpuscular Volume July 13, 2013 9:30am 92 FL N 80-99 Mean Platelet Volume July 13, 2013 9:30am 10.1 FL N 7.4-10.4 Monocytes # (Auto) July 13, 2013 9:30am 0.7 X 10^3 N 0.0-1.0 Monocytes (%) (Auto) July 13, 2013 9:30am 9 % N 0-12 Neutrophils # (Auto) July 13, 2013 9:30am 4.3 X 10^3 N 1.8-7.8 Neutrophils (%) (Auto) July 13, 2013 9:30am 56 % N 42-75 Platelet Count July 13, 2013 9:30am 356 10^3/uL N 130-400 Potassium Level July 13, 2013 9:30am 3.8 MMOL/L N 3.6-5.0 Red Blood Count July 13, 2013 9:30am 4.09 10^6/uL L 4.35-5.85 Red Cell Distribution Width July 13, 2013 9:30am 13.4 % N 10.0-14.5 Sodium Level July 13, 2013 9:30am 137 MMOL/L N 135-145 Thyroid Stimulating Hormone (TSH) July 18, 2012 8:20am 3.13 UIU/ML N 0.34- 5.60 Total Bilirubin July 13, 2013 9:30am 0.3 MG/DL N 0.0-1.0 Total Protein July 13, 2013 9:30am 7.0 G/DL N 6.4-8.2 Triglycerides Level July 18, 2012 8:20am 118 MG/DL N 30.0-150.0 VLDL Cholesterol July 18, 2012 8:20am 24 MG/DL N 5-40 Vancomycin Level Trough July 11, 2013 11:00am 4 UG/ML L 15-20 White Blood Count July 13, 2013 9:30am 7.6 10^3/uL N 4.3-11.0 Estimat Glomerular Filtration Rate June 24, 2013 12: 18pm 53 - Procedures Procedure Code Date EXCIS DEBRIDE OF WOUND, INFECT, OR BURN 86.22 05/09/11 REMOVE NAIL BED/FINGER TIP 51077 PARTIAL AMPUTATION OF TOE 60064 11/06/12 PART OSTECT-METATAR/TAR 77.88 07/08/13 INJECT ANTIBIOTIC 99.21 07/08/13 OTHER LOCAL DESTRUC SKIN 86.3 07/08/13 Blood Culture 10/13/10 MRSA Screen 07/08/13 Gram Stain 07/08/13 Encounters Encounter Location Date/Time Admitted Inpatient [facility] 12:48pm Discharged Inpatient [facility] 10:23am Departed Emergency Room [facility] 31/07 8:20pm
--- OUTSIDE RECORDS SUMMARY | 2018-05-08 01:16 | XMS REPORT | Continuity of Care Document ---
Author Author [facility] Organization [facility] Address Unknown Phone Unavailable Care Team Providers Care Otolaryngology Nurse Name Role Phone BILL CARRANZA MD PP Insurance Providers Payer Name Policy Number Subscriber Name Relationship Garett Arevalo [facility] Supp [id number] Liliam Dominguez 01 Self / Same As Patient Wps Medicare [id number] Liliam Dominguez Self / Same As Patient Advance Directives Directive Response Recorded Date Advance Directives N 07/24/13 1:10am Health Care Power of Beam Machine Operator N 07/24/13 1:10am Organ Donor Y 07/24/13 1:10am Problems No Known Problems or Medical conditions. Social History History Response Recorded Date/Time Alcohol Use Denies Use 07/24/13 1:10am Recreational Drug Use N 07/24/13 1:10am Recent Foreign Travel N 07/24/13 1:10am Recent Infectious Disease Exposure N 1:10am Hospitalization with Isolation Contact 1:46pm Allergies, Adverse Reactions, Alerts Allergen Type Severity Reaction Last Updated No Known Drug Allergies 07/13/11 Medications Medication Dose Units Route Sig Qty Days Clindamycin HCl (Cleocin Cap) 300 Mg PO BID Estradiol (Estrace) 0.5 Mg PO HS Potassium Chloride 20 Meq PO DAILY [place]-3/Dha/Epa/Fish Oil (Fish Oil 1,000 Mg Softgel) 1000 [...] Interp. Ref. Range Alanine Aminotransferase (ALT/SGPT) July 18, 2013 12: 23pm 40 U/L N 30-65 Albumin July 18, 2013 12:23pm 2.9 G/ DL L 3.4-5.0 Alkaline Phosphatase July 18, 2013 12:23pm 103 U/L N 50-136 Aspartate Amino Transf (AST/SGOT) July 18, 2013 12:23pm 33 U/L N 15-37 BUN/Creatinine Ratio July 24, 2013 5:44am 15 - Basophils # (Auto) July 18, 2013 12:23pm 0.0 10^3/uL N 0.0-0.1 Basophils (%) (Auto) July 18, 2013 12:23pm 0 % N 0-10 Blood Urea Nitrogen July 24, 2013 5:44am 16 MG/DL N 7-18 C-Reactive Protein June 24, 2013 12:18pm < 0.2 MG/DL L 0.2-0.9 Calcium Level July 24, 2013 5:44am 8.4 MG/DL L 8.5-10.1 Carbon Dioxide Level July 24, 2013 5:44am 27 MMOL/L N 21-32 Chloride Level July 24, 2013 5:44am 105 MMOL/L N 101-110 Cholesterol Level July 18, 2012 8:20am 192 MG/DL N -200 Creatinine July 24, 2013 5:44am 1.1 MG/DL N 0.6-1.3 Eosinophils # (Auto) July 18, 2013 12:23pm 0.2 10^3/uL N 0.0-0.3 Eosinophils (%) (Auto) July 18, 2013 12:23pm 3 % N 0-10 Erythrocyte Sedimentation Rate June 24, 2013 12:18pm 24 MM/HR N 0-30 Glucose Level July 24, 2013 5:44am 109 MG/DL H 74-106 HDL Cholesterol July 18, 2012 8:20am 53 MG/DL N 35-60 Hematocrit July 18, 2013 12:23pm 39 % N 35-52 Hemoglobin July 18, 2013 12:23pm 13.2 G/DL N 11.5-16.0 Hemoglobin A1c July 13, 2011 8:40am 5.9 % N 4.8-6.0 LDL Cholesterol July 18, 2012 8:20am 115 MG/DL N 0-129 Lymphocytes # (Auto) July 18, 2013 12:23pm 2.8 X 10^3 N 1.0-4.0 Lymphocytes (%) (Auto) July 18, 2013 12:23pm 30 % N 12-44 Mean Corpuscular Hemoglobin July 18, 2013 12:23pm 31 PG N 25-34 Mean Corpuscular Hemoglobin Concent July 18, 2013 12: 23pm 34 G/DL N 32-36 Mean Corpuscular Volume July 18, 2013 12:23pm 92 FL N 80-99 Mean Platelet Volume July 18, 2013 12:23pm 10.2 FL N 7.4-10.4 Monocytes # (Auto) July 18, 2013 12:23pm 0.8 X 10^3 N 0.0-1.0 Monocytes (%) (Auto) July 18, 2013 12:23pm 9 % N 0-12 Neutrophils # (Auto) July 18, 2013 12:23pm 5.5 X 10^3 N 1.8-7.8 Neutrophils (%) (Auto) July 18, 2013 12:23pm 59 % N 42-75 Platelet Count July 18, 2013 12:23pm 378 10^3/uL N 130-400 Potassium Level July 24, 2013 5:44am 3.5 MMOL/L L 3.6-5.0 Red Blood Count July 18, 2013 12:23pm 4.22 10^6/uL L 4.35-5.85 Red Cell Distribution Width July 18, 2013 12:23pm 13.5 % N 10.0-14.5 Sodium Level July 24, 2013 5:44am 143 MMOL/L N 135-145 Thyroid Stimulating Hormone (TSH) July 18, 2012 8:20am 3.13 UIU/ML N 0.34- 5.60 Total Bilirubin July 18, 2013 12:23pm 0.4 MG/DL N 0.0-1.0 Total Protein July 18, 2013 12:23pm 7.1 G/DL N 6.4-8.2 Triglycerides Level July 18, 2012 8:20am 118 MG/DL N 30.0-150.0 VLDL Cholesterol July 18, 2012 8:20am 24 MG/DL N 5-40 Vancomycin Level Trough July 27, 2013 9:11am 14 UG/ML L 15-20 White Blood Count July 18, 2013 12:23pm 9.4 10^3/uL N 4.3-11.0 Glucometer July 28, 2013 10:37am 131 MG/DL H 70-110 Estimat Glomerular Filtration Rate June 24, 2013 12: 18pm 53 - Procedures Procedure Code Date EXCIS DEBRIDE OF WOUND, INFECT, OR BURN 86.22 05/09/11 REMOVE NAIL BED/FINGER TIP 17300 PARTIAL AMPUTATION OF TOE 96326 11/06/12 PART OSTECT-METATAR/TAR 77.88 07/08/13 INJECT ANTIBIOTIC 99.21 07/08/13 OTHER LOCAL DESTRUC SKIN 86.3 07/08/13 PART OSTECT-METATAR/TAR 77.88 07/24/13 OTHER TENOTOMY 83.13 07/24/13 REMOVAL OF (CEMENT) SPACER 84.57 Blood Culture 10/13/10 MRSA Screen 07/08/13 Gram Stain 07/08/13 Encounters Encounter Location Date/Time Discharged Inpatient [facility] 1:05am Departed Emergency Room [facility] 31/07 8:20pm
--- OUTSIDE RECORDS SUMMARY | 2018-05-08 01:16 | XMS REPORT | Continuity of Care Document ---
Author Author [facility] Organization [facility] Address Unknown Phone Unavailable Care Team Providers Care Data Integration Architect Name Role Phone BILL CARRANZA MD PP Insurance Providers Payer Name Policy Number Subscriber Name Relationship Garett Arevalo [facility] Supp [id number] Liliam Dominguez 01 Self / Same As Patient Wps Medicare [id number] Liliam Dominguez Self / Same As Patient Advance Directives Directive Response Recorded Date Advance Directives N 07/14/13 12:50pm Health Care Power of Rocket Engine Component Mechanic N 07/14/13 12:50pm Organ Donor Y 07/14/13 [...] HS Potassium Chloride 20 Meq PO DAILY [place]-3/Dha/Epa/Fish Oil (Fish Oil 1,000 Mg Softgel) 1000 [...] MG/DL N 5-40 Vancomycin Level Trough July 15, 2013 8:52am 13 UG/ML L 15-20 White Blood Count July 13, 2013 9:30am 7.6 10^3/uL N 4.3-11.0 Glucometer July 16, 2013 10:41am 177 MG/DL H 70-110 Estimat Glomerular Filtration Rate June 24, 2013 12: 18pm 53 - Procedures Procedure Code Date EXCIS DEBRIDE OF WOUND, INFECT, OR BURN 86.22 05/09/11 REMOVE NAIL BED/FINGER TIP 31915 PARTIAL AMPUTATION OF TOE 69311 11/06/12 PART OSTECT-METATAR/TAR 77.88 07/08/13 INJECT ANTIBIOTIC 99.21 07/08/13 OTHER LOCAL DESTRUC SKIN 86.3 07/08/13 Blood Culture 10/13/10 MRSA Screen 07/08/13 Gram Stain 07/08/13 Encounters Encounter Location Date/Time Discharged Inpatient [facility] 12:48pm Departed Emergency Room [facility] 31/07 8:20pm
--- OUTSIDE RECORDS SUMMARY | 2018-05-08 01:16 | XMS REPORT | Continuity of Care Document ---
Author Author [facility] Organization [facility] Address Unknown Phone Unavailable Care Team Providers Care [employer] Truck Driver Name Role Phone BILL CARRANZA MD PP Insurance Providers Payer Name Policy Number Subscriber Name Relationship Garett Arevalo [facility] Supp [id number] Liliam Dominguez 01 Self / Same As Patient Wps Medicare [id number] Liliam Dominguez 01 Self / Same As Patient Advance Directives Directive Response Recorded Date Advance Directives N 07/08/13 11:11am Health Care Power of Helmet Hat Sweatband Puncher N 07/08/13 11:11am Organ Donor Y 07/08/13 11:11am Problems No Known Problems or Medical conditions. Social History History Response Recorded Date/Time Alcohol Use Denies Use 07/08/13 5:53pm Recreational Drug Use N 07/08/13 11:11am Recent Infectious Disease Exposure N 11/19 5:53pm Allergies, Adverse Reactions, Alerts Allergen Type Severity Reaction Last Updated No Known Drug Allergies 07/13/11 Medications Medication Dose Units Route Sig Qty Days Clindamycin HCl (Cleocin Cap) 300 Mg PO BID Estradiol (Estrace) 0.5 Mg PO HS Potassium Chloride 20 Meq PO DAILY [place]-3/Dha/Epa/Fish Oil (Fish Oil 1,000 Mg Softgel) 1000 [...] Vaccine 08/07/12 H Date of Influenza Vaccine 08/07/12 H influenza, split (incl. purified surface antigen) 07/09/13 A Response Recorded Date/Time Status not known Unknown Results Test Date Result Interp. Ref. Range Alanine Aminotransferase (ALT/SGPT) July 18, 2012 8:20am 50 U/L N 30-65 Albumin July 18, 2012 8:20am 3.5 G/ DL N 3.4-5.0 Alkaline Phosphatase July 18, 2012 8:20am 81 U/L N 50-136 Aspartate Amino Transf (AST/SGOT) July 18, 2012 8:20am 28 U/L N 15-37 BUN/Creatinine Ratio June 24, 2013 12:18pm 19 - Basophils # (Auto) July 18, 2012 8:20am 0.0 10^3/uL N 0.0-0.1 Basophils (%) (Auto) July 18, 2012 8:20am 1 % N 0-10 Blood Urea Nitrogen June 24, 2013 12:18pm 19 MG/DL H 7-18 C-Reactive Protein June 24, 2013 12:18pm < 0.2 MG/DL L 0.2-0.9 Calcium Level June 24, 2013 12:18pm 9.0 MG/DL N 8.5-10.1 Carbon Dioxide Level June 24, 2013 12:18pm 31 MMOL/L N 21-32 Chloride Level June 24, 2013 12:18pm 101 MMOL/L N 101-110 Cholesterol Level July 18, 2012 8:20am 192 MG/DL N -200 Creatinine June 24, 2013 12:18pm 1.0 MG/DL N 0.6-1.3 Eosinophils # (Auto) July 18, 2012 8:20am 0.2 10^3/uL N 0.0-0.3 Eosinophils (%) (Auto) July 18, 2012 8:20am 3 % N 0-10 Erythrocyte Sedimentation Rate June 24, 2013 12:18pm 24 MM/HR N 0-30 Glucose Level June 24, 2013 12:18pm 105 MG/DL N 74-106 HDL Cholesterol July 18, 2012 8:20am 53 MG/DL N 35-60 Hematocrit July 18, 2012 8:20am 41 % N 35-52 Hemoglobin July 18, 2012 8:20am 13.9 G/DL N 11.5-16.0 Hemoglobin A1c July 13, 2011 8:40am 5.9 % N 4.8-6.0 LDL Cholesterol July 18, 2012 8:20am 115 MG/DL N 0-129 Lymphocytes # (Auto) July 18, 2012 8:20am 2.9 X 10^3 N 1.0-4.0 Lymphocytes (%) (Auto) July 18, 2012 8:20am 46 % H 12-44 Mean Corpuscular Hemoglobin July 18, 2012 8:20am 33 PG N 25-34 Mean Corpuscular Hemoglobin Concent July 18, 2012 8:20am 34 G/DL N 32-36 Mean Corpuscular Volume July 18, 2012 8:20am 96 FL N 80-99 Mean Platelet Volume July 18, 2012 8:20am 10.0 FL N 7.4-10.4 Monocytes # (Auto) July 18, 2012 8:20am 0.9 X 10^3 N 0.0-1.0 Monocytes (%) (Auto) July 18, 2012 8:20am 14 % H 0-12 Neutrophils # (Auto) July 18, 2012 8:20am 2.3 X 10^3 N 1.8-7.8 Neutrophils (%) (Auto) July 18, 2012 8:20am 37 % L 42-75 Platelet Count July 18, 2012 8:20am 350 10^3/uL N 130-400 Potassium Level June 24, 2013 12:18pm 3.9 MMOL/L N 3.6-5.0 Red Blood Count July 18, 2012 8:20am 4.26 10^6/uL L 4.35-5.85 Red Cell Distribution Width July 18, 2012 8:20am 13.2 % N 10.0-14.5 Sodium Level June 24, 2013 12:18pm 138 MMOL/L N 135-145 Thyroid Stimulating Hormone (TSH) July 18, 2012 8:20am 3.13 UIU/ML N 0.34- 5.60 Total Bilirubin July 18, 2012 8:20am 0.2 MG/DL N 0.0-1.0 Total Protein July 18, 2012 8:20am 7.1 G/DL N 6.4-8.2 Triglycerides Level July 18, 2012 8:20am 118 MG/DL N 30.0-150.0 VLDL Cholesterol July 18, 2012 8:20am 24 MG/DL N 5-40 Vancomycin Level Trough May 19, 2011 7:04am 17 UG/ML N 15-20 White Blood Count July 18, 2012 8:20am 6.2 10^3/uL N 4.3-11.0 Estimat Glomerular Filtration Rate June 24, 2013 12: 18pm 53 - Procedures Procedure Code Date EXCIS DEBRIDE OF WOUND, INFECT, OR BURN 86.22 05/09/11 REMOVE NAIL BED/FINGER TIP 73608 PARTIAL AMPUTATION OF TOE 10857 11/06/12 PART OSTECT-METATAR/TAR 77.88 07/08/13 INJECT ANTIBIOTIC 99.21 07/08/13 OTHER LOCAL DESTRUC SKIN 86.3 07/08/13 Blood Culture 10/13/10 MRSA Screen 10/23/12 Gram Stain 05/07/11 Encounters Encounter Location Date/Time Discharged Inpatient [facility] 10:23am Departed Emergency Room [facility] 31/07 8:20pm
== END 2018-05-07 20:25 | disposition home or self-care (01) ==
LOC: EDUNIT# 18:25 → ER 18:27
DX: S61.412A Laceration without foreign body of left hand, initial encounter (principal); I10 Essential (primary) hypertension; E11.9 Type 2 diabetes mellitus without complications; Z90.710 Acquired absence of both cervix and uterus; Z23 Encounter for immunization; Z90.89 Acquired absence of other organs; W01.118A Fall on same level from slipping, tripping and stumbling with subsequent striking against other sharp object, initial encounter
CPT/HCPCS: 12041; 90471; 90715